=== PATIENT | male | born 1975 | race African-American/Black ===

== ENCOUNTER 2019-12-01 08:02 | Inpatient (IN) | payer MEDICAID ==
[~2019-12-01] VITALS: Ht 185.4 cm; Wt 57.6 kg
--- NOTE | 2019-12-01 08:13 | NUR ---
ED Nurse Note: Pt ambulated to ed with mother c/o right large toe pressure ulcer noted. pt states that occured x3 days causing swelling. Mother at bedside. pt is mentally unstable.
[2019-12-01] MEDS ORDERED: HALOPERIDOL1 MG ORAL (08:19)
[2019-12-01] MEDS ORDERED: ZOCOR20 M1 ORAL (08:19)
[2019-12-01] MEDS ORDERED: BENZTROPINE MESY1 MG ORAL (08:19)
[2019-12-01] MEDS ORDERED: METFORMIN HCL500 M1 ORAL (08:19)
[2019-12-01 08:20] VITALS: BP 125/90
--- NOTE | 2019-12-01 08:20 | NUR ---
ED Nurse Note: pt denies pain at this time. pt appears irrtated, mother at bedside to calm pt. pt given pillow to increase comfort.
[2019-12-01] MEDS ORDERED: Vancomycin 1.5gm/NS Premix 275 ML IVPB ONE (08:30)
[2019-12-01] MEDS ORDERED: LISINOPRIL30 MG ORAL (08:31)
[2019-12-01] MEDS ORDERED: POTASSIUM CHLO20 ME2 ORAL (08:31)
[2019-12-01] MEDS ORDERED: ASPIR 8181 MG ORAL (08:31)
[2019-12-01 08:52] LABS: BASOPHILS % (AUTO) 0.7 % (0.0-2.0); EOSINOPHILS % (AUTO) 0.9 % (0.0-3.0); HEMATOCRIT 46.1 % (42.0-52.0); HEMOGLOBIN 14.6 G/DL (14.2-18.0); LYMPHOCYTES % (AUTO) 19.6 % (20.0-45.0); MEAN CORPUSCULAR VOLUME 93 FL (80-99); MONOCYTES % (AUTO) 7.7 % (1.0-10.0); NEUTROPHILS % (AUTO) 71.2 % (45.0-75.0); PLATELET COUNT 190 K/UL (150-450); RED BLOOD COUNT 4.97 M/UL (4.70-6.10); RED CELL DISTRIBUTION WIDTH 12.8 % (11.6-14.8); WHITE BLOOD COUNT 7.3 K/UL (4.8-10.8)
[2019-12-01 09:06] LABS: ANION GAP 9 mmol/L (5-15); BLOOD UREA NITROGEN 24 mg/dL (7-18); CALCIUM 8.7 MG/DL (8.5-10.1); CARBON DIOXIDE 27 MMOL/L (21-32); CHLORIDE 101 MMOL/L (98-107); CREATININE 1.5 MG/DL (0.55-1.30); POTASSIUM 4.5 MMOL/L (3.5-5.1); SODIUM 136 MMOL/L (136-145)
[2019-12-01 09:18] LABS: ALANINE AMINOTRANSFERASE 52 U/L (12-78); ALBUMIN 3.3 G/DL (3.4-5.0); ALBUMIN/GLOBULIN RATIO 0.8 (1.0-2.7); ALKALINE PHOSPHATASE 83 U/L (46-116); ASPARTATE AMINO TRANSFERASE 21 U/L (15-37); BILIRUBIN,TOTAL 0.5 MG/DL (0.2-1.0)
--- NOTE | 2019-12-01 09:28 | NUR ---
ED Nurse Note: BELONGING LIST COMPLETED. WALLET, SHOES GIVEN TO MOTHER KERRIE TORRES. PLEASE VIEW [facility] LIST FOR CONTACT NUMBER. PT WILL KEEP SHIRT AND SHORTS
[2019-12-01] MEDS ORDERED: Insulin Human Regular 100units/ml 3ml IV ONE (09:45)
[2019-12-01] MEDS ORDERED: Hydromorphone 0.5mg/0.5ml inj IVP PRN (10:00)
[2019-12-01 10:06] LABS: APPEARANCE,URINE CLEAR; BILIRUBIN, URINE NEGATIVE (NEGATIVE); COLOR,URINE PALE YELLOW; GLUCOSE, URINE (UA) 4+ (NEGATIVE); KETONES,URINE NEGATIVE (NEGATIVE); LEUKOCYTE ESTERASE ,URINE NEGATIVE (NEGATIVE); NITRITE,URINE POSITIVE (NEGATIVE); PH,URINE 6 (4.5-8.0); PROTEIN,URINE 1+ (NEGATIVE); UROBILINOGEN,URINE NORMAL MG/DL (0.0-1.0)
--- NOTE | 2019-12-01 10:29 | NUR ---
ED Nurse Note: report given to john tracy for continuity of care
[2019-12-01 10:30] VITALS: BP 136/84
--- NOTE | 2019-12-01 10:47 | NUR ---
TRANSFER TO FLOOR: Patient transferred to ms as ordered, per ermd. Report given to john tracy. Belongings and medications given to mother sandy sandhu except for shirt and shorts. Family informed of transfer.
--- NOTE | 2019-12-01 10:58 | NUR ---
NURSE NOTES: Patient archived to the floor by hermelinda from ER via hermelinda; I received telephone report from EBONIE Figueroa from ER; patient awake, alert x4; on room air; no sign of shortness of breath, however patient coughs; no sing of chest pain; IV Right AC flushes well; Pressure Ulcer noted on the Right great toe; belonging signed by ER nurse and receiving nurse; patient's mother at the bed side; side rails up x2, breaks engaged, bed at lowest position; call light within reach; patient's mother at the bed side; patient moved to closer to the nurse station; I communicate MD Ortiz regarding patient's cough and asking if we need to do rapid COVID -19 swap, however MD Ortiz didn't give the order; also I ask MD Ortiz if we need to do Venous and Arterial duplex; didn't give the order for Venous and Arterial duplex; will keep monitoring.
--- NOTE | 2019-12-01 10:58 | Emergency Room Report ---
History of Present Illness General Chief Complaint: Edema Source: Patient, Caregiver Present Illness HPI 44-year-old male presents to ED for evaluation. Mother at bedside states that patient has swelling to his right foot and has an infection. Patient does have a history of cognitive delay. Patient states he had a "cut" to the bottom of his foot. States that swelling has progressively gotten worse over the last few days. Denies fevers or chills. States he is a diabetic and has not taken his medication in some time. Mother states patient refuses to get Accu-Cheks. No other aggravating relieving factors. Denies any other associated symptoms Allergies: Coded Allergies: No Known Allergies (Unverified , 12/01/19) COVID-19 Screening Contact w/high risk pt: No Experienced COVID-19 symptoms?: No COVID-19 Testing performed SEX OFFENDER TREATMENT PROFESSIONAL: No Patient History Past Medical History: DM Past Surgical History: none Pertinent Family History: none Social History: Denies: smoking, alcohol use, drug use Immunizations: UTD Reviewed Nursing Documentation: PMH: Agreed; PSxH: Agreed Nursing Documentation-PMH Past Medical History: No Stated History Review of Systems All Other Systems: negative except mentioned in HPI Physical Exam Vital Signs Date Time Temp Pulse Resp B/P (MAP) Pulse Ox O2 Delivery O2 Flow Rate FiO2 12/01/19 08:06 96.3 101 18 131/96 (108) 97 Room Air Sp02 EP Interpretation: reviewed, normal General Appearance: no apparent distress, alert, GCS 15, non-toxic Head: normocephalic, atraumatic Eyes: bilateral eye normal inspection, bilateral eye PERRL ENT: hearing grossly normal, normal pharynx, no angioedema, normal voice Neck: full range of motion, supple/symm/no masses Respiratory: chest non-tender, lungs clear, normal breath sounds, speaking full sentences Cardiovascular #1: regular rate, rhythm, no edema Cardiovascular #2: 2+ carotid (R), 2+ carotid (L), 2+ radial (R), 2+ radial (L) , 2+ dorsalis pedis (R), 2+ dorsalis pedis (L) Gastrointestinal: normal bowel sounds, non tender, soft, non-distended, no guarding, no rebound Rectal: deferred Genitourinary: normal inspection, no CVA tenderness Musculoskeletal: back normal, normal range of motion, gait/station normal, non- tender Neurologic: alert, motor strength/tone normal, oriented x3, sensory intact, responsive, speech normal Psychiatric: judgement/insight normal, memory normal, mood/affect normal, no suicidal/homicidal ideation Reflexes: 3+ bicep (R), 3+ bicep (L), 3+ tricep (R), 3+ tricep (L), 3+ knee (R) , 3+ knee (L) Skin: other - blister to bottom R toe. surroudning erythema/induration. swelling R foot Lymphatic: no adenopathy Medical Decision Making Diagnostic Impression: Primary Impression: Cellulitis and abscess of foot Additional Impression: Hyperglycemia ER Course Hospital Course 44-year-old male presents to ED with redness, swelling to RLE Differential diagnoses include: Cellulitis, abscess, rash. Clinical course Patient placed on stretcher. After initial history and physical I ordered labs , blood Cx, UA, IVFs, wound culture labs reviewed - no leukocytosis, Hb/Hct stable, BUN 24, Cr 1.5, glucose > 300 no evidence of DKA antibiotics given. IVfs given. insulin given. Case discussed with Dr Darling and he agreed to accept the patient to his service for further care and support Diagnosis - cellulitis, hyperglycemia Patient admitted to floor in serious condition Laboratory Tests Test 12/01/19 08:20 12/01/19 09:11 12/01/19 10:16 White Blood Count 7.3 K/UL (4.8-10.8) Red Blood Count 4.97 M/UL (4.70-6.10) Hemoglobin 14.6 G/DL (14.2-18.0) Hematocrit 46.1 % (42.0-52.0) Mean Corpuscular Volume 93 FL (80-99) Mean Corpuscular Hemoglobin 29.4 PG (27.0-31.0) Mean Corpuscular Hemoglobin Concent 31.8 G/DL (32.0-36.0) L Red Cell Distribution Width 12.8 % (11.6-14.8) Platelet Count 190 K/UL (150-450) Mean Platelet Volume 9.7 FL (6.5-10.1) Neutrophils (%) (Auto) 71.2 % (45.0-75.0) Lymphocytes (%) (Auto) 19.6 % (20.0-45.0) L Monocytes (%) (Auto) 7.7 % (1.0-10.0) Eosinophils (%) (Auto) 0.9 % (0.0-3.0) Basophils (%) (Auto) 0.7 % (0.0-2.0) Sodium Level 136 MMOL/L (136-145) Potassium Level 4.5 MMOL/L (3.5-5.1) Chloride Level 101 MMOL/L (98-107) Carbon Dioxide Level 27 MMOL/L (21-32) Anion Gap 9 mmol/L (5-15) Blood Urea Nitrogen 24 mg/dL (7-18) H Creatinine 1.5 MG/DL (0.55-1.30) H Estimat Glomerular Filtration Rate > 60 mL/min (>60) Glucose Level 378 MG/DL (74-106) H Calcium Level 8.7 MG/DL (8.5-10.1) Total Bilirubin 0.5 MG/DL (0.2-1.0) Aspartate Amino Transf (AST/SGOT) 21 U/L (15-37) Alanine Aminotransferase (ALT/SGPT) 52 U/L (12-78) Alkaline Phosphatase 83 U/L (46-116) Pro-B-Type Natriuretic Peptide 1215 pg/mL (0-125) H Total Protein 7.4 G/DL (6.4-8.2) Albumin 3.3 G/DL (3.4-5.0) L Globulin 4.1 g/dL Albumin/Globulin Ratio 0.8 (1.0-2.7) L Urine Color Pale yellow Urine Appearance Clear Urine pH 6 (4.5-8.0) Urine Specific [place] 1.015 (1.005-1.035) Urine Protein 1+ (NEGATIVE) H Urine Glucose (UA) 4+ (NEGATIVE) H Urine Ketones Negative (NEGATIVE) Urine Blood Negative (NEGATIVE) Urine Nitrite Positive (NEGATIVE) H Urine Bilirubin Negative (NEGATIVE) Urine Urobilinogen Normal MG/DL (0.0-1.0) Urine Leukocyte Esterase Negative (NEGATIVE) Urine RBC 0 /HPF (0 - 0) Urine WBC 0 /HPF (0 - 0) Urine Squamous Epithelial Cells Occasional /LPF Urine Bacteria Occasional /HPF (NONE) Lactic Acid Level Pending Last Vital Signs Date Time Temp Pulse Resp B/P (MAP) Pulse Ox O2 Delivery O2 Flow Rate FiO2 12/01/19 10:47 97.3 92 21 131/89 98 Room Air Status: improved Disposition: ADMITTED INPATIENT Condition: Serious Referrals: NON PHYSICIAN (PCP) Giovany Maravilla MD Dec 01, 2019 10:58
[2019-12-01] MEDS: Aspirin EC 81mg tab ORAL SCH (11:25)
[2019-12-01] MEDS: Docusate 100mg cap ORAL SCH ×2 (11:25→20:46)
[2019-12-01] MEDS: Benztropine 1mg tab ORAL SCH ×2 (11:26→16:58)
[2019-12-01] MEDS: Heparin 5000 units/ml inj SUBQ SCH ×2 (11:26→20:48)
[2019-12-01] MEDS ORDERED: POTASSIUM CHLO20 ME1 ORAL (11:42)
[2019-12-01] MEDS ORDERED: SPIRONOLACTONE100 MG ORAL (11:42)
[2019-12-01] MEDS: NovoLOG Insulin Flexpen SUBQ SCH ×3 (12:20→20:49)
[2019-12-01] MEDS: Haloperidol 1mg tab ORAL SCH ×2 (12:21→16:58)
--- NOTE | 2019-12-01 13:59 | Infectious Diseases Prog Note ---
Assessment/Plan Assessment/Plan Full consult dictated: A) 1) right foot/leg cellulitis, right foot great toe wound - ? infected 2) pmh noted 3) allergies - nkda P) 1) vancomycin and cefepime 2) monitor cellulitis 3) check wound culture 4) monitor labs 5) thank you Subjective Allergies: Coded Allergies: No Known Allergies (Unverified , 12/01/19) Objective Last 24 Hour Vital Signs Date Time Temp Pulse Resp B/P (MAP) Pulse Ox O2 Delivery O2 Flow Rate FiO2 12/01/19 10:47 97.3 92 21 131/89 98 Room Air 12/01/19 10:30 97.3 89 17 136/84 100 Room Air 12/01/19 08:52 79 18 Room Air 12/01/19 08:20 96.3 79 18 125/90 97 Room Air 12/01/19 08:06 96.3 101 18 131/96 (108) 97 Room Air Height (Feet): 6 Height (Inches): 1.00 Weight (Pounds): 280 Laboratory Tests Test 12/01/19 08:20 12/01/19 09:11 12/01/19 10:16 White Blood Count 7.3 K/UL (4.8-10.8) Red Blood Count 4.97 M/UL (4.70-6.10) Hemoglobin 14.6 G/DL (14.2-18.0) Hematocrit 46.1 % (42.0-52.0) Mean Corpuscular Volume 93 FL (80-99) Mean Corpuscular Hemoglobin 29.4 PG (27.0-31.0) Mean Corpuscular Hemoglobin Concent 31.8 G/DL (32.0-36.0) L Red Cell Distribution Width 12.8 % (11.6-14.8) Platelet Count 190 K/UL (150-450) Mean Platelet Volume 9.7 FL (6.5-10.1) Neutrophils (%) (Auto) 71.2 % (45.0-75.0) Lymphocytes (%) (Auto) 19.6 % (20.0-45.0) L Monocytes (%) (Auto) 7.7 % (1.0-10.0) Eosinophils (%) (Auto) 0.9 % (0.0-3.0) Basophils (%) (Auto) 0.7 % (0.0-2.0) Sodium Level 136 MMOL/L (136-145) Potassium Level 4.5 MMOL/L (3.5-5.1) Chloride Level 101 MMOL/L (98-107) Carbon Dioxide Level 27 MMOL/L (21-32) Anion Gap 9 mmol/L (5-15) Blood Urea Nitrogen 24 mg/dL (7-18) H Creatinine 1.5 MG/DL (0.55-1.30) H Estimat Glomerular Filtration Rate > 60 mL/min (>60) Glucose Level 378 MG/DL (74-106) H Calcium Level 8.7 MG/DL (8.5-10.1) Total Bilirubin 0.5 MG/DL (0.2-1.0) Aspartate Amino Transf (AST/SGOT) 21 U/L (15-37) Alanine Aminotransferase (ALT/SGPT) 52 U/L (12-78) Alkaline Phosphatase 83 U/L (46-116) Pro-B-Type Natriuretic Peptide 1215 pg/mL (0-125) H Total Protein 7.4 G/DL (6.4-8.2) Albumin 3.3 G/DL (3.4-5.0) L Globulin 4.1 g/dL Albumin/Globulin Ratio 0.8 (1.0-2.7) L Urine Color Pale yellow Urine Appearance Clear Urine pH 6 (4.5-8.0) Urine Specific [place] 1.015 (1.005-1.035) Urine Protein 1+ (NEGATIVE) H Urine Glucose (UA) 4+ (NEGATIVE) H Urine Ketones Negative (NEGATIVE) Urine Blood Negative (NEGATIVE) Urine Nitrite Positive (NEGATIVE) H Urine Bilirubin Negative (NEGATIVE) Urine Urobilinogen Normal MG/DL (0.0-1.0) Urine Leukocyte Esterase Negative (NEGATIVE) Urine RBC 0 /HPF (0 - 0) Urine WBC 0 /HPF (0 - 0) Urine Squamous Epithelial Cells Occasional /LPF Urine Bacteria Occasional /HPF (NONE) Lactic Acid Level 1.50 mmol/L (0.4-2.0) Current Medications Medications (Trade) Dose Ordered Sig/Mika Route PRN Reason Start Time Stop Time Status Last Admin Dose Admin Acetaminophen (Tylenol) 650 mg Q4H PRN ORAL Mild Pain (Pain Scale 1-3) 12/01/19 10:00 12/31/19 09:59 Aspirin (Ecotrin) 81 mg DAILY ORAL 12/01/19 11:00 01/15/20 10:59 12/01/19 11:25 Benztropine Mesylate (Cogentin) 1 mg BID ORAL 12/01/19 11:00 12/31/19 10:59 12/01/19 11:26 Cefepime HCl 2 gm/ Dextrose 100 ml @ 200 mls/hr Q12HR IVPB 12/01/19 21:00 12/08/19 20:59 UNV Dextrose (Dextrose 50%) 25 ml Q30M PRN IV Hypoglycemia 12/01/19 10:00 02/29/20 09:59 Dextrose (Dextrose 50%) 50 ml Q30M PRN IV Hypoglycemia 12/01/19 10:00 02/29/20 09:59 Docusate Sodium (Colace) 100 mg EVERY 12 HOURS ORAL 12/01/19 10:45 12/31/19 10:44 12/01/19 11:25 Haloperidol (Haldol) 4 mg BID ORAL 12/01/19 12:00 01/15/20 11:59 12/01/19 12:21 Heparin Sodium (Porcine) (Heparin 5000 units/ml) 5,000 units EVERY 12 HOURS SUBQ 12/01/19 10:45 01/15/20 10:44 12/01/19 11:26 Hydromorphone HCl (Dilaudid) 0.5 mg Q4H PRN IVP Severe Pain (Pain Scale 7-10) 12/01/19 10:00 12/08/19 09:59 Insulin Aspart (NovoLOG) BEFORE MEALS AND HS SUBQ 12/01/19 11:30 02/29/20 11:29 12/01/19 12:20 Ondansetron HCl (Zofran) 4 mg Q6H PRN IVP Nausea & Vomiting 12/01/19 10:00 12/31/19 09:59 Sodium Chloride 1,000 ml @ 75 mls/hr [id number] IV 12/01/19 10:56 12/31/19 10:55 12/01/19 11:26 Vancomycin HCl (Vanco pharmacy to dose) 1 ea DAILY PRN MISC Per rx protocol 12/01/19 10:00 12/31/19 09:59 Vancomycin HCl 1 gm/Sodium Chloride 275 ml @ 183.708 mls/hr Q12HR IVPB 12/01/19 21:00 12/06/19 20:59 Isabel Lee MD Dec 01, 2019 13:59
--- NOTE | 2019-12-01 14:08 | History and Physical ---
History of Present Illness General Date patient seen: Dec 01, 2019 Time patient seen: 12:00 Reason for Hospitalization: LLE cellulitis Present Illness HPI 44-year-old male with paranoid schizophrenia, HTN, chronic systolic CHD (EF 20% on TTE done at [facility] in 2010) DM (noncompliant with meds x 1 yeat) presents to ED for evaluation of RLE swelling. Mother at bedside states that patient has swelling to his right foot and has an infection. Patient states he had a "cut" to the bottom of his foot. States that swelling has progressively gotten worse over the last few days. Denies fevers or chills. Mother states he only takes his schizophrenia meds, no diabtic meds\\, refuses to get Accu-Cheks. Patient denies any fever, chills, abdominal pain, CP, palpitations. Started on vancomycin in ED and referred for admission. Allergies: Coded Allergies: No Known Allergies (Unverified , 12/01/19) COVID-19 Screening Contact w/high risk pt: No Recent Travel to affected area: No Experienced COVID-19 symptoms?: No Medication History Scheduled Aspirin* (Aspir 81*), 81 MG ORAL DAILY, (Reported) Benztropine Mesylate* (Benztropine Mesylate*), 1 MG ORAL BID, (Reported) Haloperidol* (Haldol*), 4 MG ORAL BID, (Reported) Lisinopril* (Lisinopril*), 20 MG ORAL DAILY, (Reported) Metformin Hcl* (Metformin Hcl*), 500 MG ORAL TWICE A DAY, (Reported) Potassium Chloride (Potassium Chloride), 20 MEQ ORAL DAILY, (Reported) Potassium Chloride* (K-Dur*), 20 MEQ ORAL DAILY, (Reported) Simvastatin (Zocor), 20 MG ORAL BEDTIME, (Reported) Spironolactone* (Spironolactone*), 25 MG ORAL DAILY, (Reported) Patient History Healthcare decision maker Resuscitation status Advanced Directive on File Review of Systems Constitutional: Denies: chills, fever Respiratory: Denies: cough, orthopnea, shortness of breath, stridor, wheezing Cardiovascular: Reports: edema; Denies: chest pain Gastrointestinal: Denies: abdominal pain Genitourinary: Denies: dysuria Musculoskeletal: Denies: back pain Skin: Denies: rash Neurological: Denies: headache Endocrine: Denies: excessive sweating Physical Exam General Appearance: no apparent distress, alert HEENT: atraumatic, anicteric Neck: normal alignment, supple Respiratory/Chest: lungs clear, normal breath sounds, no respiratory distress, no accessory muscle use Cardiovascular/Chest: normal rate, regular rhythm Abdomen: non tender, soft Extremities: non-tender, normal inspection, moderate edema - +Warmth Skin Exam: other - Left great toe ulceration without evidence of celulitis 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, alert, oriented x 3 Last 24 Hour Vital Signs Date Time Temp Pulse Resp B/P (MAP) Pulse Ox O2 Delivery O2 Flow Rate FiO2 12/01/19 10:47 97.3 92 21 131/89 98 Room Air 12/01/19 10:30 97.3 89 17 136/84 100 Room Air 12/01/19 08:52 79 18 Room Air 12/01/19 08:20 96.3 79 18 125/90 97 Room Air 12/01/19 08:06 96.3 101 18 131/96 (108) 97 Room Air Laboratory Tests Test 12/01/19 08:20 12/01/19 09:11 12/01/19 10:16 White Blood Count 7.3 K/UL (4.8-10.8) Red Blood Count 4.97 M/UL (4.70-6.10) Hemoglobin 14.6 G/DL (14.2-18.0) Hematocrit 46.1 % (42.0-52.0) Mean Corpuscular Volume 93 FL (80-99) Mean Corpuscular Hemoglobin 29.4 PG (27.0-31.0) Mean Corpuscular Hemoglobin Concent 31.8 G/DL (32.0-36.0) L Red Cell Distribution Width 12.8 % (11.6-14.8) Platelet Count 190 K/UL (150-450) Mean Platelet Volume 9.7 FL (6.5-10.1) Neutrophils (%) (Auto) 71.2 % (45.0-75.0) Lymphocytes (%) (Auto) 19.6 % (20.0-45.0) L Monocytes (%) (Auto) 7.7 % (1.0-10.0) Eosinophils (%) (Auto) 0.9 % (0.0-3.0) Basophils (%) (Auto) 0.7 % (0.0-2.0) Sodium Level 136 MMOL/L (136-145) Potassium Level 4.5 MMOL/L (3.5-5.1) Chloride Level 101 MMOL/L (98-107) Carbon Dioxide Level 27 MMOL/L (21-32) Anion Gap 9 mmol/L (5-15) Blood Urea Nitrogen 24 mg/dL (7-18) H Creatinine 1.5 MG/DL (0.55-1.30) H Estimat Glomerular Filtration Rate > 60 mL/min (>60) Glucose Level 378 MG/DL (74-106) H Calcium Level 8.7 MG/DL (8.5-10.1) Total Bilirubin 0.5 MG/DL (0.2-1.0) Aspartate Amino Transf (AST/SGOT) 21 U/L (15-37) Alanine Aminotransferase (ALT/SGPT) 52 U/L (12-78) Alkaline Phosphatase 83 U/L (46-116) Pro-B-Type Natriuretic Peptide 1215 pg/mL (0-125) H Total Protein 7.4 G/DL (6.4-8.2) Albumin 3.3 G/DL (3.4-5.0) L Globulin 4.1 g/dL Albumin/Globulin Ratio 0.8 (1.0-2.7) L Urine Color Pale yellow Urine Appearance Clear Urine pH 6 (4.5-8.0) Urine Specific [place] 1.015 (1.005-1.035) Urine Protein 1+ (NEGATIVE) H Urine Glucose (UA) 4+ (NEGATIVE) H Urine Ketones Negative (NEGATIVE) Urine Blood Negative (NEGATIVE) Urine Nitrite Positive (NEGATIVE) H Urine Bilirubin Negative (NEGATIVE) Urine Urobilinogen Normal MG/DL (0.0-1.0) Urine Leukocyte Esterase Negative (NEGATIVE) Urine RBC 0 /HPF (0 - 0) Urine WBC 0 /HPF (0 - 0) Urine Squamous Epithelial Cells Occasional /LPF Urine Bacteria Occasional /HPF (NONE) Lactic Acid Level 1.50 mmol/L (0.4-2.0) Height (Feet): 6 Height (Inches): 1.00 Weight (Pounds): 280 Medications Current Medications Medications (Trade) Dose Ordered Sig/Mika Route PRN Reason Start Time Stop Time Status Last Admin Dose Admin Acetaminophen (Tylenol) 650 mg Q4H PRN ORAL Mild Pain (Pain Scale 1-3) 12/01/19 10:00 12/31/19 09:59 Aspirin (Ecotrin) 81 mg DAILY ORAL 12/01/19 11:00 01/15/20 10:59 12/01/19 11:25 Benztropine Mesylate (Cogentin) 1 mg BID ORAL 12/01/19 11:00 12/31/19 10:59 12/01/19 11:26 Cefepime HCl 2 gm/ Dextrose 100 ml @ 200 mls/hr Q12HR IVPB 12/01/19 21:00 12/08/19 20:59 Dextrose (Dextrose 50%) 25 ml Q30M PRN IV Hypoglycemia 12/01/19 10:00 02/29/20 09:59 Dextrose (Dextrose 50%) 50 ml Q30M PRN IV Hypoglycemia 12/01/19 10:00 02/29/20 09:59 Docusate Sodium (Colace) 100 mg EVERY 12 HOURS ORAL 12/01/19 10:45 12/31/19 10:44 12/01/19 11:25 Haloperidol (Haldol) 4 mg BID ORAL 12/01/19 12:00 01/15/20 11:59 12/01/19 12:21 Heparin Sodium (Porcine) (Heparin 5000 units/ml) 5,000 units EVERY 12 HOURS SUBQ 12/01/19 10:45 01/15/20 10:44 12/01/19 11:26 Hydromorphone HCl (Dilaudid) 0.5 mg Q4H PRN IVP Severe Pain (Pain Scale 7-10) 12/01/19 10:00 12/08/19 09:59 Insulin Aspart (NovoLOG) BEFORE MEALS AND HS SUBQ 12/01/19 11:30 02/29/20 11:29 12/01/19 12:20 Ondansetron HCl (Zofran) 4 mg Q6H PRN IVP Nausea & Vomiting 12/01/19 10:00 12/31/19 09:59 Sodium Chloride 1,000 ml @ 75 mls/hr [id number] IV 12/01/19 10:56 12/31/19 10:55 12/01/19 11:26 Vancomycin HCl (Vanco pharmacy to dose) 1 ea DAILY PRN MISC Per rx protocol 12/01/19 10:00 12/31/19 09:59 Vancomycin HCl 1 gm/Sodium Chloride 275 ml @ 183.708 mls/hr Q12HR IVPB 12/01/19 21:00 12/06/19 20:59 Assessment/Plan Status: stable Assessment/Plan: 44 year old man with DM, chronic sCHF, HTN, schizphrenia comes in with RLE swelling #RLE Edema and warmth #RLE cellulitis #Right great toe diabetic foot ulcer -Admit to medical service -IV abx, vancomycin and monitor drug levels -RLE elevation -ID eval -Podiatry consulted, Dr. Meyers -check LE venous duplex to rule out DVT #Chronic systolic CHF, EF 20% on TTE from 2010 at [facility] #Elevated BNP -IV Lasix diuresis -Check TTE -Cardiology consulted, Dr. Lan #Type 2 DM, uncontrolled due to noncompliance -start ZAY -monitor accuchecks -Will look to start oral hypoglycemic this admission #Elevated creatinine of 1.5, could be underlying CKD versus BRIA -monitor BMP -hold ACEI -Nephrology consulted, Dr. Angela #Paranoid schizophrenia #Medical noncompliance -continue Haldol and Cogentin' -Psychiatry consulted, Dr. Rose -counselled about importance of compliance I spent 72 minutes on this patient's case, and 35 minutes was dedicated to counseling and/or care coordination with RN, consulting MDs, case management I spent an additional 35 minutes on review of medical records including prior hospital records, consult notes, progress notes, procedures, imaging, labs, hemodynamics, and other clinical documentation. Bruce Villaseonr MD Dec 01, 2019 14:08
--- NOTE | 2019-12-01 14:37 | NUR ---
CASE MANAGEMENT: INITIAL REVIEW 44 YO M PRESENTED TO ED FROM HOME CC: EDEMA. "cut" to the bottom of his foot. PMHx: DM. cognitive delay. SI:RIGHT LE CELLULITIS T 96.3 HR 101 RR 18 B/P 131/96 SATS 97% ON RA LABS: BUN 24 CR 1.5 GLU 378 BNP 1215 IS: VANCO IV X1 NS BOLUS X1 PATIENT ADMITTED TO MED/SURG 12/01/2019 @ 0848 DCP: HOME PLAN OF CARE: wound culture Podiatry consulted, Dr. Meyers check LE venous duplex to rule out DVT -IV Lasix diuresis -Check TTE -Cardiology consulted, Dr. Lan
--- NOTE | 2019-12-01 15:12 | NUR ---
NURSE NOTES: X-ray tech came up to do chest x-ray and right foot x-ray. Patient agreed with foot x-ray but refused chest x-ray. RN explained to the patient the importance of following plan of care and patient noted with on and off dry cough. Patient stated firmly " I do not need chest x-ray." x3. RN explained the risks and benefits.
--- NOTE | 2019-12-01 15:27 | Diagnostic Imaging Report ---
History: OSTEOMY Exam: XR RIGHT FOOT 3 views Comparison: None available FINDINGS: No fracture or dislocation. No evidence of periosteal reaction or osseous destruction. No radiopaque foreign body identified. Suggestion of soft tissue swelling. IMPRESSION: No evidence of periosteal reaction or osseous destruction. No radiopaque foreign body identified. Suggestion of soft tissue swelling.
--- NOTE | 2019-12-01 15:43 | Diagnostic Imaging Report ---
History: SWELL Exam: US VENOUS BILATERAL LOWER EXTREMITIES Comparison: None available FINDINGS: Deep venous system of the right and left lower extremity appears patent and compressible with spontaneous flow without intraluminal echoes. IMPRESSION: No evidence of DVT within the right or left lower extremity.
[2019-12-01 16:00] VITALS: BP 142/93
--- NOTE | 2019-12-01 19:32 | NUR ---
HAND-OFF: Report given to EBONIE George. Patient on bed, watiching TV; patient is stable condition;
--- NOTE | 2019-12-01 19:36 | NUR ---
NURSE NOTES: Patient in bed, awake and alert. Able to make needs known. On room air with no signs of distress or SOB. IV intact and running IVF as ordered. Bed locked and in lowest position. Call light in reach. Will continue to monitor the patient.
[2019-12-01 19:54] VITALS: BP 141/90
[2019-12-01] MEDS: Vancomycin 1 GM in NS 275 ML IVPB SCH (21:27)
[2019-12-02] VITALS (7 sets, daily range): BP systolic 130–149; BP diastolic 81–110
--- NOTE | 2019-12-02 02:56 | NUR ---
HAND-OFF: Report given to EBONIE Ferguson.
--- NOTE | 2019-12-02 02:57 | NUR ---
NURSE NOTES: Received pt awake, verbal, and A&Ox3-4 . No sob, fever and pain at the moment. pt has a episodes of cough. Iv is intact and asymptomatic. pt is ambulatory. Bed is in the lowest position,locked and call light within reach. We will continue monitoring the pt
[2019-12-02] MEDS: NovoLOG Insulin Flexpen SUBQ SCH ×4 (06:11→20:41)
--- NOTE | 2019-12-02 07:20 | NUR ---
NURSE NOTES: Received report from EBONIE Ferguson. Patient awake in bed, alert and verbally responsive, no SOB, bed in lowest position with alarms on and breaks engaged, IV line on right AC patent, on room air, will continue to monitor and proceed with plan of care, call light within reach
--- NOTE | 2019-12-02 07:26 | NUR ---
HAND-OFF: Report given to EBONIE Olivarez.
[2019-12-02] MEDS: Heparin 5000 units/ml inj SUBQ SCH ×2 (08:07→20:41)
[2019-12-02] MEDS: Docusate 100mg cap ORAL SCH ×2 (08:08→20:57)
[2019-12-02] MEDS: Haloperidol 1mg tab ORAL SCH ×2 (08:08→17:05)
[2019-12-02] MEDS: Benztropine 1mg tab ORAL SCH ×2 (08:08→17:05)
[2019-12-02] MEDS: Aspirin EC 81mg tab ORAL SCH (08:08)
--- NOTE | 2019-12-02 08:39 | Consultation ---
History of Present Illness General Date patient seen: Dec 02, 2019 Time patient seen: 08:25 Chief Complaint: Edema Referring physician: Dr Rome Reason for Consultation: Foot ulcer, DM, Cellulitis Present Illness HPI Patient states he cut his toe 5 days ago and it has not been healing. He only notes swelling in right leg but no pain, no drainage, no f/c/n/v. Allergies: Coded Allergies: No Known Allergies (Unverified , 12/01/19) Medication History Scheduled Aspirin* (Aspir 81*), 81 MG ORAL DAILY, (Reported) Benztropine Mesylate* (Benztropine Mesylate*), 1 MG ORAL BID, (Reported) Haloperidol* (Haldol*), 4 MG ORAL BID, (Reported) Lisinopril* (Lisinopril*), 20 MG ORAL DAILY, (Reported) Metformin Hcl* (Metformin Hcl*), 500 MG ORAL TWICE A DAY, (Reported) Potassium Chloride (Potassium Chloride), 20 MEQ ORAL DAILY, (Reported) Potassium Chloride* (K-Dur*), 20 MEQ ORAL DAILY, (Reported) Simvastatin (Zocor), 20 MG ORAL BEDTIME, (Reported) Spironolactone* (Spironolactone*), 25 MG ORAL DAILY, (Reported) Patient History Healthcare decision maker Resuscitation status Advanced Directive on File Past Medical/Surgical History Past Medical/Surgical History: (1) Diabetes mellitus type 2 with complications, uncontrolled (2) CHF (congestive heart failure) (3) Cellulitis (4) Hyperglycemia (5) Cellulitis and abscess of foot Review of Systems Constitutional: Denies: no symptoms, see HPI, chills, sweats, fever, malaise, weakness, other Respiratory: Denies: cough, orthopnea, shortness of breath Cardiovascular: Reports: edema; Denies: no symptoms, see HPI, chest pain, palpitations, syncope, PND, other Gastrointestinal: Denies: diarrhea, nausea, vomiting Musculoskeletal: Denies: no symptoms, see HPI, back pain, gout, joint pain, joint swelling, muscle pain, muscle stiffness, other Skin: Reports: other - foot ulcer Neurological: Denies: numbness Physical Exam General Appearance: WD/WN Cardiovascular/Chest: normal peripheral pulses Extremities: normal range of motion, non-tender, no calf tenderness, moderate edema - RLE Neurologic: sensory deficit Physical Exam Narrative Patient : SITA TORRES Referring Physician: Isabel Lee MD ID Number: [id number] Service Date: 12/01/19 : 1975 Report Date: 12/01/19 Gender: M Accession No.: [id number] Location: 4E Procedure: XRAY Foot 2v R History: OSTEOMY Exam: XR RIGHT FOOT 3 views Comparison: None available FINDINGS: No fracture or dislocation. No evidence of periosteal reaction or osseous destruction. No radiopaque foreign body identified. Suggestion of soft tissue swelling. IMPRESSION: No evidence of periosteal reaction or osseous destruction. No radiopaque foreign body identified. Suggestion of soft tissue swelling. Dictated By: Alvarez Onofre MD Electronically Signed By: Alvarez Onofre MD Signed Date/Time 12/01/19 1526 CC: Isabel Lee MD; Fermin Tate MD Venous Ultz - NEG DVT BLE Last 24 Hour Vital Signs Date Time Temp Pulse Resp B/P (MAP) Pulse Ox O2 Delivery O2 Flow Rate FiO2 12/02/19 06:00 97.5 103 18 145/98 (114) 96 12/02/19 00:00 97.7 102 20 149/110 (123) 97 12/01/19 21:00 Room Air 12/01/19 19:54 98.2 105 20 141/90 (107) 99 12/01/19 16:00 98.4 102 20 142/93 (109) 96 12/01/19 14:07 Room Air 12/01/19 10:47 97.3 92 21 131/89 98 Room Air 12/01/19 10:30 97.3 89 17 136/84 100 Room Air 12/01/19 08:52 79 18 Room Air Intake and Output 12/01/19 12/02/19 19:00 07:00 Intake Total 2245 ml 1005 ml Output Total 1300 ml 1000 ml Balance 945 ml 5 ml Intake Oral 720 ml 630 ml IV Total 1525 ml 375 ml Output Urine Total 1300 ml 1000 ml Laboratory Tests Test 12/01/19 09:11 12/01/19 10:16 Urine Color Pale yellow Urine Appearance Clear Urine pH 6 (4.5-8.0) Urine Specific [place] 1.015 (1.005-1.035) Urine Protein 1+ (NEGATIVE) H Urine Glucose (UA) 4+ (NEGATIVE) H Urine Ketones Negative (NEGATIVE) Urine Blood Negative (NEGATIVE) Urine Nitrite Positive (NEGATIVE) H Urine Bilirubin Negative (NEGATIVE) Urine Urobilinogen Normal MG/DL (0.0-1.0) Urine Leukocyte Esterase Negative (NEGATIVE) Urine RBC 0 /HPF (0 - 0) Urine WBC 0 /HPF (0 - 0) Urine Squamous Epithelial Cells Occasional /LPF Urine Bacteria Occasional /HPF (NONE) Lactic Acid Level 1.50 mmol/L (0.4-2.0) Height (Feet): 6 Height (Inches): 1.00 Weight (Pounds): 127 Medications Current Medications Medications (Trade) Dose Ordered Sig/Mika Route PRN Reason Start Time Stop Time Status Last Admin Dose Admin Acetaminophen (Tylenol) 650 mg Q4H PRN ORAL Mild Pain (Pain Scale 1-3) 12/01/19 10:00 12/31/19 09:59 Aspirin (Ecotrin) 81 mg DAILY ORAL 12/01/19 11:00 01/15/20 10:59 12/02/19 08:08 Benztropine Mesylate (Cogentin) 1 mg BID ORAL 12/01/19 11:00 12/31/19 10:59 12/02/19 08:08 Cefepime HCl 2 gm/ Dextrose 100 ml @ 200 mls/hr Q12HR IVPB 12/01/19 21:00 12/08/19 20:59 12/02/19 08:05 Dextrose (Dextrose 50%) 25 ml Q30M PRN IV Hypoglycemia 12/01/19 10:00 02/29/20 09:59 Dextrose (Dextrose 50%) 50 ml Q30M PRN IV Hypoglycemia 12/01/19 10:00 02/29/20 09:59 Docusate Sodium (Colace) 100 mg EVERY 12 HOURS ORAL 12/01/19 10:45 12/31/19 10:44 12/02/19 08:08 Furosemide (Lasix) 40 mg DAILY IV 12/01/19 14:15 12/31/19 14:14 12/02/19 08:06 Haloperidol (Haldol) 4 mg BID ORAL 12/01/19 12:00 01/15/20 11:59 12/02/19 08:08 Heparin Sodium (Porcine) (Heparin 5000 units/ml) 5,000 units EVERY 12 HOURS SUBQ 12/01/19 10:45 01/15/20 10:44 12/02/19 08:07 Hydromorphone HCl (Dilaudid) 0.5 mg Q4H PRN IVP Severe Pain (Pain Scale 7-10) 12/01/19 10:00 12/08/19 09:59 Insulin Aspart (NovoLOG) BEFORE MEALS AND HS SUBQ 12/01/19 11:30 02/29/20 11:29 12/02/19 06:11 Ondansetron HCl (Zofran) 4 mg Q6H PRN IVP Nausea & Vomiting 12/01/19 10:00 12/31/19 09:59 Sodium Chloride 1,000 ml @ 75 mls/hr [id number] IV 12/01/19 10:56 12/31/19 10:55 12/02/19 00:38 Vancomycin HCl (Vanco pharmacy to dose) 1 ea DAILY PRN MISC Per rx protocol 12/01/19 10:00 12/31/19 09:59 Vancomycin HCl 1 gm/Sodium Chloride 275 ml @ 183.708 mls/hr Q12HR IVPB 12/01/19 21:00 12/06/19 20:59 12/01/19 21:27 Objective Narrative Plantar right hallux ulcer to subq. No signs of acute infection noted. No bone or tendon exposed Assessment/Plan Diagnosis [place] I: A/ 1) Cellulitis RLE 2) Right foot ulcer 3) DM uncontrolled 4) CHF P/ 1) Abx per ID 2) Wound care orders placed. No indication for osteo. No surgical intervention indicated at this time. Patient educated on wound and need for partial WB to right foot to avoid wound when ambulating. 3) Strict glycemic control for optimal wound healing 4) Will follow Thank you Javier Meyers DPM Dec 02, 2019 08:39
[2019-12-02] MEDS: Vancomycin 1 GM in NS 275 ML IVPB SCH (09:17)
--- NOTE | 2019-12-02 12:58 | General Progress Note ---
Assessment/Plan Status: stable Assessment/Plan: 44 year old man with DM, chronic sCHF, HTN, schizphrenia comes in with RLE swelling #RLE Edema and warmth #RLE cellulitis #Right great toe diabetic foot ulcer -Continue inpatient level of care -IV abx, vanco and cefepime -RLE elevation -ID recs appreciated -Podiatry recs appreciated, no surgical interventions recommended -LE duplex neg for DVT #Chronic systolic CHF, EF 20% on TTE from 2010 at [facility] #Elevated BNP -hold IV Lasix as he is not allowing labs to be checked -TTE done, results pending -Cardiology consulted, Dr. Lan #Type 2 DM, uncontrolled due to noncompliance -cont ZAY -monitor accuchecks -Will look to start oral hypoglycemic this admission #Elevated creatinine of 1.5, could be underlying CKD versus BRIA -monitor BMP -hold ACEI -Nephrology consulted, Dr. Angela #Paranoid schizophrenia #Medical noncompliance -continue Haldol and Cogentin' -Psychiatry consulted, Dr. Rose -counselled about importance of compliance I spent 37 minutes on this patient's case, and 20 minutes was dedicated to counseling and/or care coordination with RN, consulting MDs, case management Subjective Date patient seen: Dec 02, 2019 Time patient seen: 12:36 Constitutional: Denies: fever Cardiovascular: Denies: chest pain Respiratory: Denies: cough, orthopnea Gastrointestinal/Abdominal: Denies: abdominal pain Allergies: Coded Allergies: No Known Allergies (Unverified , 12/01/19) Subjective Follow up for RLE cellulitis, per patient swelling is improved Patient did not allow labs to be drawn this morning, states he doesn't want any needles Objective Last 24 Hour Vital Signs Date Time Temp Pulse Resp B/P (MAP) Pulse Ox O2 Delivery O2 Flow Rate FiO2 12/02/19 12:00 97.7 97 20 136/81 (99) 96 12/02/19 09:00 Room Air 12/02/19 08:00 96.4 103 18 131/83 (99) 96 12/02/19 06:00 97.5 103 18 145/98 (114) 96 12/02/19 00:00 97.7 102 20 149/110 (123) 97 12/01/19 21:00 Room Air 12/01/19 19:54 98.2 105 20 141/90 (107) 99 12/01/19 16:00 98.4 102 20 142/93 (109) 96 12/01/19 14:07 Room Air Intake and Output 12/01/19 12/02/19 19:00 07:00 Intake Total 2245 ml 1005 ml Output Total 1300 ml 1000 ml Balance 945 ml 5 ml Intake Oral 720 ml 630 ml IV Total 1525 ml 375 ml Output Urine Total 1300 ml 1000 ml Laboratory Tests 12/02/19 12:02: POC Whole Blood Glucose 261H Height (Feet): 6 Height (Inches): 1.00 Weight (Pounds): 127 General Appearance: no apparent distress, alert Neck: normal alignment, supple Cardiovascular: normal rate, regular rhythm Respiratory/Chest: lungs clear, normal breath sounds Abdomen: non tender, soft Bruce Villasenor MD Dec 02, 2019 12:58
--- NOTE | 2019-12-02 14:57 | NUR ---
CASE MANAGEMENT: REVIEW 12/02/19 SI:CELLULITIS . RIGHT LE DIABETIC FOOT ULCER . DM II UNCONTROLLED . CHF 96.4 103 18 131/83 96% ON RA BG 261 IS: IV NS@75ML/HR IV VANCOMYCIN BID IV CEFEPIME BID ASPIRIN PO QD HEPARIN SQ BID COGENTIN PO BID \: 4E MED SURG UNIT DCP: HOME PLAN OF CARE: Cont wound culture LE venous duplex- No evidence of DVT within the right or left lower extremity. Echo to be reviews EF 30-35%
[2019-12-02] MEDS ORDERED: DiphenhydrAMINE 50mg/ml Inj IM SCH (15:30)
[2019-12-02] MEDS ORDERED: LORazepam Inj 2mg/ml 1ml IM SCH (15:30)
[2019-12-02] MEDS ORDERED: Haloperidol 5mg/ml Inj IM SCH (15:30)
--- NOTE | 2019-12-02 15:53 | NUR ---
NURSE NOTES: At 2:40 pm, patient told RN that he wants to "check out" and leave the hospital KASIA, RN explained to patient that there is no discharge order for him and that it is not safe for him to leave yet as he is getting fluids and IV ATB for his infection, patient did not want to listen and was getting restless and agitated at the moment. Patient's parents tried to convince him to stay but patient insisted on leaving. Dr. Rome (covering for Dr. Tate) made aware and he was able to talk to the patient and convince him to stay. Dr. Rose also made aware and ordered one time doses of Ativan, Haldol and Benadryl which the patient strongly refused, offered x 3 and explained risk and benefits as witnessed by the charge nurse, Todd. Patient was re-educated regarding the risks of going AMA and he verbalized understanding. Patient is calm and stable at this time. Will continue to monitor the patient for behavioral episodes and overall changes. RP, Oma Chatman (mom) made aware.
--- NOTE | 2019-12-02 17:20 | Infectious Diseases Prog Note ---
Assessment/Plan Assessment/Plan Full consult dictated: A) 1) right foot/leg cellulitis, right foot great toe wound - ? infected 2) pmh noted 3) allergies - nkda P) 1) vancomycin and cefepime - day # 2 2) monitor cellulitis - improving 3) check wound culture 4) monitor labs 5) will f/u Subjective Constitutional: Denies: fever HEENT: Denies: congestion Respiratory: Denies: shortness of breath Cardiovascular: Denies: chest pain Gastrointestinal/Abdominal: Denies: nausea, vomiting Genitourinary: Denies: dysuria, hematuria Neurologic: Denies: headache Allergies: Coded Allergies: No Known Allergies (Unverified , 12/01/19) Objective Last 24 Hour Vital Signs Date Time Temp Pulse Resp B/P (MAP) Pulse Ox O2 Delivery O2 Flow Rate FiO2 12/02/19 16:00 98.1 90 19 130/87 (101) 96 12/02/19 12:00 97.7 97 20 136/81 (99) 96 12/02/19 09:00 Room Air 12/02/19 08:00 96.4 103 18 131/83 (99) 96 12/02/19 06:00 97.5 103 18 145/98 (114) 96 12/02/19 00:00 97.7 102 20 149/110 (123) 97 12/01/19 21:00 Room Air 12/01/19 19:54 98.2 105 20 141/90 (107) 99 Height (Feet): 6 Height (Inches): 1.00 Weight (Pounds): 127 General Appearance: no acute distress HEENT: normocephalic, atraumatic, anicteric, mucous membranes moist Respiratory/Chest: lungs clear, normal breath sounds, no respiratory distress, no accessory muscle use, respiratory distress Cardiovascular: normal rate, regular rhythm Abdomen: normal bowel sounds, soft, non tender, no organomegaly Genitourinary: other - no jacobs Extremities: other - right leg/foot with less cellulitis Laboratory Tests Test 12/02/19 12:02 POC Whole Blood Glucose 261 MG/DL (74-106) H Current Medications Medications (Trade) Dose Ordered Sig/Mika Route PRN Reason Start Time Stop Time Status Last Admin Dose Admin Acetaminophen (Tylenol) 650 mg Q4H PRN ORAL Mild Pain (Pain Scale 1-3) 12/01/19 10:00 12/31/19 09:59 Aspirin (Ecotrin) 81 mg DAILY ORAL 12/01/19 11:00 01/15/20 10:59 12/02/19 08:08 Benztropine Mesylate (Cogentin) 1 mg BID ORAL 12/01/19 11:00 12/31/19 10:59 12/02/19 17:05 Cefepime HCl 2 gm/ Dextrose 100 ml @ 200 mls/hr Q12HR IVPB 12/01/19 21:00 12/08/19 20:59 12/02/19 08:05 Dextrose (Dextrose 50%) 25 ml Q30M PRN IV Hypoglycemia 12/01/19 10:00 02/29/20 09:59 Dextrose (Dextrose 50%) 50 ml Q30M PRN IV Hypoglycemia 12/01/19 10:00 02/29/20 09:59 Docusate Sodium (Colace) 100 mg EVERY 12 HOURS ORAL 12/01/19 10:45 12/31/19 10:44 12/02/19 08:08 Haloperidol (Haldol) 4 mg BID ORAL 12/01/19 12:00 01/15/20 11:59 12/02/19 17:05 Heparin Sodium (Porcine) (Heparin 5000 units/ml) 5,000 units EVERY 12 HOURS SUBQ 12/01/19 10:45 01/15/20 10:44 12/02/19 08:07 Hydromorphone HCl (Dilaudid) 0.5 mg Q4H PRN IVP Severe Pain (Pain Scale 7-10) 12/01/19 10:00 12/08/19 09:59 Insulin Aspart (NovoLOG) BEFORE MEALS AND HS SUBQ 12/01/19 11:30 02/29/20 11:29 12/02/19 12:41 Ondansetron HCl (Zofran) 4 mg Q6H PRN IVP Nausea & Vomiting 12/01/19 10:00 12/31/19 09:59 Sodium Chloride 1,000 ml @ 75 mls/hr [id number] IV 12/01/19 10:56 12/31/19 10:55 12/02/19 12:42 Vancomycin HCl (Vanco pharmacy to dose) 1 ea DAILY PRN MISC Per rx protocol 12/01/19 10:00 12/31/19 09:59 Vancomycin HCl 1 gm/Sodium Chloride 275 ml @ 183.708 mls/hr Q12HR IVPB 12/01/19 21:00 12/06/19 20:59 12/02/19 09:17 Isabel Lee MD Dec 02, 2019 17:20
--- NOTE | 2019-12-02 17:21 | NUR ---
NURSE NOTES: Patient's IV line on the right AC noted to be slightly red around the area and pt c/o burning and irritation on the site. IV line was removed, pt verbalized relief. Patient does not want to have an IV line started at this time, explained to patient the importance of an IV line, offered to re-insert x 3 but refused at this time, pt stated that he might be willing to try later on. Will continue to monitor. Dr. Rome made aware.
--- NOTE | 2019-12-02 19:14 | NUR ---
HAND-OFF: Report given to EBONIE Tate.
--- NOTE | 2019-12-02 19:16 | NUR ---
NURSE NOTES: Patient in bed, awake and alert x3-4. On room air with no signs of distress SOB. No IV access at this time. Patient refused IV reinsertion per AM shift RN. Will attempt to reinsert PM shift. Bed locked and in lowest position. Call light in reach. Will continue to monitor the patient.
--- NOTE | 2019-12-02 19:45 | Consultation ---
DATE OF CONSULTATION: 12/02/2019 INFECTIOUS DISEASES CONSULTATION CONSULTING PHYSICIAN: Isabel Lee MD. ATTENDING PHYSICIAN: Fermin Tate MD. REFERRING PHYSICIAN: 1. Fermin Tate MD. 2. Bruce Rome MD. REASON FOR CONSULTATION: 1. Right foot and leg cellulitis. 2. Right foot possible infected great toe wound CHIEF COMPLAINT: The patient's chief complaint coming into the hospital is right lower extremity cellulitis. HISTORY OF PRESENT ILLNESS: This is a very pleasant 44-year-old male who had what looks like some type of cut to his right foot great toe with cellulitis of the right foot and right leg. Infectious Diseases consultation was requested. I put him on vancomycin and cefepime. X-ray showed no osteo. Wound culture pending of the right foot great toe. MAR was noted. Orders were noted. Notes were reviewed. The patient will be continued on vancomycin and cefepime for now. REVIEW OF SYSTEMS: Main issue is right foot, leg pain, and toe pain. He has no fevers.CARDIAC: No chest pain. GASTROINTESTINAL: No nausea, vomiting, or diarrhea. GENITOURINARY: No Barrios. No dysuria or frequency. PULMONARY: No shortness of breath. SKIN: No rash. PAST MEDICAL HISTORY: The patient's past medical history includes the following: The patient has a past medical history of paranoid schizophrenia, hypertension, chronic systolic heart disease with decreased ejection fraction of 20%, CHF, diabetes type 2. ALLERGIES: No known drug allergies. No antibiotic allergies. SOCIAL HISTORY: Negative for smoking, alcohol or drug abuse. FAMILY HISTORY: Noncontributory. MEDICATIONS: Upon reviewing the MAR, he is on following medications. He is on vancomycin, cefepime, haloperidol, insulin, aspirin, benztropine, sodium, heparin, docusate, acetaminophen, hydromorphone, Zofran, IV fluids. Outside medications noted and reconciliated. PHYSICAL EXAMINATION: VITAL SIGNS: Temperature 98.1, pulse rate 90, respiratory rate 19, blood pressure 130/87, saturation 96% on room air. GENERAL: Alert, responsive, oriented. HEAD AND NECK: Oral exam, no thrush. Eye exam, no icterus. Normocephalic. Neck is supple. HEART: Regular. No gallop or murmur. ABDOMEN: Soft. Positive bowel sounds. Nontender. LUNGS: Clear bilaterally. No rhonchi or rales. SKIN: No rash. MUSCULOSKELETAL: No effusion. Legs, he has right leg and foot cellulitis. He also has wound on the right foot great toe, which is not necrotic, may be mild slough, mostly red. No gangrene noted. No septic arthritis. Right leg has redness and warmth. Right foot as discussed but it seems to be improved since yesterday. NEUROLOGIC: Intact. LINE SITES: Without phlebitis. GENITOURINARY: No Barrios. LABORATORY AND DIAGNOSTIC DATA: White count 7.3, hemoglobin 14.6. Creatinine 1.5. Wound culture of the right foot great toe is pending. X-ray of the right foot showed no evidence of osteo. ASSESSMENT AND PLAN: 1. The patient has right foot and leg cellulitis with swelling and warmth, most likely nidus of infection of the right foot great toe. There is an open wound. X-ray of the right foot showed no osteo. We will continue antibiotics vancomycin and cefepime for MRSA and gram-negative coverage. Continue vancomycin and cefepime for right foot and leg cellulitis and also possible right foot infected great toe/first toe wound. Check wound culture. X-ray showed osteo. Continue vancomycin and cefepime. Monitor right foot and leg cellulitis. Continue wound care protocol. 2. Elevated creatinine. 3. Diabetes. 4. Hypertension. 5. Blood sugar and blood pressure treatment per primary care team. 6. CHF. 7. Decreased ejection fraction. 8. Paranoid schizophrenia. 9. The patient was seen by podiatry and clinically there is no indication for osteo. Continue local wound care per podiatry. 10. Allergies are negative. 11. Social history is negative. 12. Family history is noncontributory. 13. MAR was noted. 14. Case was discussed with RN. Thank you for this consultation. I will follow with you. Isabel Lee M.D. DR: May JOB#: [id number] CC:
--- NOTE | 2019-12-02 19:57 | NUR ---
NURSE NOTES: Patient refusing IV reinsertion. Attempted to explain that the patient is to receive antibiotics tonight via IV, but patient continues to refuse, stating "I'm going home tomorrow, anyway". Left message for Dr. Heredia. Awaiting call back. Will continue to monitor the patient.
--- NOTE | 2019-12-02 20:12 | NUR ---
NURSE NOTES: New orders received from Dr. Heredia. Will follow plan of care.
--- NOTE | 2019-12-02 20:42 | NUR ---
NURSE NOTES: Patient refusing accu-check. Explained risks and benefits but patient continues to refuse. Will continue to monitor.
[2019-12-02] MEDS: Augmentin 875mg Tab ORAL SCH (20:57)
[2019-12-02] MEDS: Doxycycline Monohydrate 100mg ORAL SCH (20:57)
[2019-12-03] VITALS: BP 130/96
[2019-12-03 03:42] VITALS: BP 132/81
[2019-12-03] MEDS: NovoLOG Insulin Flexpen SUBQ SCH (06:00)
--- NOTE | 2019-12-03 06:09 | NUR ---
NURSE NOTES: Patient refused accucheck this morning and insulin. Explained risks and benefits but patient continues to refuse. States he's "done being poked".
--- NOTE | 2019-12-03 07:45 | NUR ---
NURSE NOTES: Patient awake and alert respirations unlabored.Patient up in room ambulating,gait is steady,no complaints at this time.Breakfast at bedside.
[2019-12-03] MEDS: Heparin 5000 units/ml inj SUBQ SCH (08:44)
[2019-12-03 08:48] VITALS: BP 150/107
--- NOTE | 2019-12-03 08:49 | NUR ---
NURSE NOTES: Patient refusing his morning routine medications at this time,patient state he wants to talk with his Doctor he wants to be discharged today.Reinforce importance of his medication,will attempt later .
[2019-12-03] MEDS: Haloperidol 1mg tab ORAL SCH (09:00)
[2019-12-03] MEDS: Augmentin 875mg Tab ORAL SCH (09:00)
[2019-12-03] MEDS: Docusate 100mg cap ORAL SCH (09:00)
[2019-12-03] MEDS: Doxycycline Monohydrate 100mg ORAL SCH (09:00)
[2019-12-03] MEDS: Aspirin EC 81mg tab ORAL SCH (09:00)
[2019-12-03] MEDS: Benztropine 1mg tab ORAL SCH (09:00)
--- NOTE | 2019-12-03 09:55 | NUR ---
NURSE NOTES: DR Colindres here to see patient and aware that patient refusing medications speaking with patient Mother at this time patient wants to be discharge home will follow up.
--- NOTE | 2019-12-03 10:02 | NUR ---
NURSE NOTES: DR Colindres again spoke with patient regarding staying in the hospital for antibotics to treat the infection patient again state he wants to be discharge,DR state if you leave it will be against medical advice,patient state he will sign to leave Against Medical advice.
--- NOTE | 2019-12-03 10:19 | NUR ---
NURSE NOTES: Patient has his personal belongings,ID hospital band removed.Patient has no IV line.Patient left Hospital patient state he has money to get home.
--- NOTE | 2019-12-03 12:52 | Discharge Summary ---
Discharge Summary Hospital Course Date of Admission Dec 01, 2019 at 08:48 Date of Discharge Dec 03, 2019 at 10:20 Admitting Diagnosis RLE cellulitis HPI Luis Antonio Chatman is a 44 year old male who was admitted on Dec 01, 2019 at 08:48 for Right Lower Extremity Cellulitis Hospital Course Patient was treated for cellulitis with IV abx but refused all labs, was combative and refused antibiotics. He left AMA after discussing all risks with him. He was AAOx4 and had insight to the situation. Refused had written prescription of antibiotic, said he will not take them. I spent 40 min on this AMA dc discussing with patient, patients mother and RNs Discharge Discharge Vital Signs Last Vital Signs Date Time Temp Pulse Resp B/P (MAP) Pulse Ox O2 Delivery O2 Flow Rate FiO2 12/03/19 10:00 Room Air 12/03/19 08:48 98.5 100 20 150/107 (121) 95 Discharge Disposition AMA Discharge Diagnoses: (1) Cellulitis and abscess of foot (2) Diabetes mellitus type 2 with complications, uncontrolled (3) CHF (congestive heart failure) (4) Cellulitis Benjamin Colindres M.D. Dec 03, 2019 12:52
--- NOTE | 2019-12-03 16:48 | NUR ---
*_* INSURANCE *_* ALL AVAILABLE CLINICALS AND REVIEWS HAVE BEEN FAXED TO : [facility] AUTH#[id number] FAX CLINICALS TO [facility]. [facility]. CARE P:[phone] F:[phone]
--- NOTE | 2019-12-03 23:04 | Psych Consult Progress Note ---
Psychiatry Progress Note Psychiatry Progress Note Allergies: Coded Allergies: No Known Allergies (Unverified , 12/01/19) Objective Data Height (Feet): 6 Height (Inches): 1.00 Weight (Pounds): 127 Assessment/Plan Status: Kane Urbina MD Dec 03, 2019 23:04
--- NOTE | 2019-12-04 00:30 | Consultation ---
DATE OF CONSULTATION: 12/03/2019 CONSULTING PHYSICIAN: Kane Rose MD. HISTORY OF PRESENT ILLNESS: Patient has a history of schizophrenia and multiple medical issues including hypertension, CHD who has been admitted to the hospital for medical stabilization. Patient has been agitated, uncooperative, attempted to leave the hospital several times. Patient is easily agitated and labile. PAST PSYCHIATRIC HISTORY: Schizophrenia. PAST MEDICAL HISTORY: As above. ALLERGIES: No known drug allergies. SUBSTANCE ABUSE HISTORY: No known history of illicit drug use or alcohol. MENTAL STATUS EXAMINATION: Alert, oriented times self, place, situation. Mood is neutral. Affect is flat. Thought process is concrete. Thought content, no suicidal or homicidal ideation. Cognition is intact. Insight and judgment is fair. ASSESSMENT: [place] I Schizophrenia, chronic paranoid type. [place] II Deferred. [place] III As above. [place] IV Low. [place] V 50. PLAN: 1. Continue current psychotropic medications. 2. Provide the patient with reality orientation and supportive therapy. Kane Rose M.D. DR: CHARLES JOB#: [id number] CC:
== END 2019-12-03 10:20 | disposition left against medical advice (07) | DRG 380 ==
LOC: EMR 08:20 → 4E 08:48 → EDBEDREQ 10:09 → 4E 11:15
DX: E11.621 Type 2 diabetes mellitus with foot ulcer (principal); L02.611 Cutaneous abscess of right foot; L97.519 Non-pressure chronic ulcer of other part of right foot with unspecified severity; L03.115 Cellulitis of right lower limb; E11.65 Type 2 diabetes mellitus with hyperglycemia; I11.0 Hypertensive heart disease with heart failure; I50.32 Chronic diastolic (congestive) heart failure; F20.0 Paranoid schizophrenia; Z91.19 Patient's noncompliance with other medical treatment and regimen
CPT/HCPCS: 36415; 80053; 81003; 82962; 83605; 83880; 85025; 93306; 93970; 96361; 96365; 96375; 99285; J1815; J7030

== ENCOUNTER 2020-04-19 09:41 | Inpatient (IN) | payer MEDICAID ==
[~2020-04-19] VITALS: Ht 188 cm; Wt 110.2 kg
[~2020-04-19 09:41] MED LIST: ASPIR 8181 MG ORAL; BENZTROPINE MESY1 MG ORAL; HALOPERIDOL1 MG ORAL; LISINOPRIL30 MG ORAL; METFORMIN HCL500 M1 ORAL; POTASSIUM CHLO20 ME1 ORAL; POTASSIUM CHLO20 ME2 ORAL; SPIRONOLACTONE100 MG ORAL; ZOCOR20 M1 ORAL
[2020-04-19 10:00] VITALS: BP 132/90
[2020-04-19 10:41] LABS: BASOPHILS % (AUTO) 0.7 % (0.0-2.0); HEMATOCRIT 46.9 % (42.0-52.0); HEMOGLOBIN 15.5 G/DL (14.2-18.0); LYMPHOCYTES % (AUTO) 7.9 % (20.0-45.0); MEAN CORPUSCULAR VOLUME 91 FL (80-99); MONOCYTES % (AUTO) 9.3 % (1.0-10.0); NEUTROPHILS % (AUTO) 82.2 % (45.0-75.0); PLATELET COUNT 231 K/UL (150-450); RED BLOOD COUNT 5.17 M/UL (4.70-6.10); RED CELL DISTRIBUTION WIDTH 17.9 % (11.6-14.8); WHITE BLOOD COUNT 13.3 K/UL (4.8-10.8)
[2020-04-19 10:49] LABS: APPEARANCE,URINE CLEAR; BILIRUBIN, URINE NEGATIVE (NEGATIVE); GLUCOSE, URINE (UA) 4+ (NEGATIVE); KETONES,URINE 3+ (NEGATIVE); LEUKOCYTE ESTERASE ,URINE NEGATIVE (NEGATIVE); NITRITE,URINE NEGATIVE (NEGATIVE); PH,URINE 5 (4.5-8.0); PROTEIN,URINE 3+ (NEGATIVE); UROBILINOGEN,URINE NORMAL MG/DL (0.0-1.0)
[2020-04-19 10:55] LABS: COLOR,URINE YELLOW
[2020-04-19 11:02] LABS: ANION GAP 11 mmol/L (5-15); BLOOD UREA NITROGEN 17 mg/dL (7-18); CALCIUM 8.6 MG/DL (8.5-10.1); CARBON DIOXIDE 25 MMOL/L (21-32); CHLORIDE 96 MMOL/L (98-107); CREATININE 1.4 MG/DL (0.55-1.30); POTASSIUM 4.3 MMOL/L (3.5-5.1); SODIUM 132 MMOL/L (136-145)
[2020-04-19 11:05] VITALS: BP 132/85
[2020-04-19 11:12] LABS: ALANINE AMINOTRANSFERASE 34 U/L (12-78); ALBUMIN/GLOBULIN RATIO 0.6 (1.0-2.7); ALKALINE PHOSPHATASE 169 U/L (46-116); ASPARTATE AMINO TRANSFERASE 20 U/L (15-37)
[2020-04-19 11:13] LABS: BILIRUBIN,DIRECT 1.3 MG/DL (0.0-0.3)
--- NOTE | 2020-04-19 11:25 | Diagnostic Imaging Report ---
EXAM: XR Chest, 1 View CLINICAL HISTORY: WEAK TECHNIQUE: Frontal view of the chest. COMPARISON: Chest radiograph on 02/16/2011 FINDINGS: Hardware: None. Lungs/pleura: Patchy opacities in the left mid and lower lung and right lower lung. Possible small left pleural effusion. Heart/mediastinum: Enlargement of the cardiac silhouette. Soft tissues: Unremarkable. Bones: No acute fracture. Upper abdomen: Normal. IMPRESSION: Patchy opacities in the left mid and lower lung and right lower lung which could represent an infectious/inflammatory process. Possible small left pleural effusion.
[2020-04-19 12:14] VITALS: BP 138/80
[2020-04-19] MEDS ORDERED: cefTRIAXone 1 GM in NS 55 ML IVPB ONE (12:30)
[2020-04-19] MEDS ORDERED: Azithromycin 500 MG in NS 275 ML IV ONE (12:30)
--- NOTE | 2020-04-19 14:26 | Emergency Room Report ---
History of Present Illness General Chief Complaint: Generalized Weakness Source: Patient Present Illness HPI 44-year-old male presents ED for evaluation. Mother at bedside. Patient is a poor historian with cognitive delay. History of schizophrenia. States that patient has been coughing for the last few days. Also is not compliant with his medications. History of diabetes. History of congestive heart failure. Denies chest pain or shortness of breath. Denies fevers or chills. States he has some wounds on his legs. No other aggravating relieving factors. Denies any other associated symptoms Allergies: Coded Allergies: No Known Allergies (Unverified , 12/01/19) COVID-19 Screening Contact w/high risk pt: No Recent Travel to affected area: No Experienced COVID-19 symptoms?: No COVID-19 Testing performed TOE PULLER: No Patient History Past Medical History: DM Past Surgical History: none Pertinent Family History: none Social History: Denies: smoking, alcohol use, drug use Immunizations: UTD Reviewed Nursing Documentation: PMH: Agreed; PSxH: Agreed Nursing Documentation-PMH Past Medical History: No History, Except For Hx Cardiac Problems: No Hx Diabetes: Yes Hx Cancer: No Hx Gastrointestinal Problems: No Hx Neurological Problems: No Review of Systems All Other Systems: negative except mentioned in HPI Physical Exam Vital Signs Date Time Temp Pulse Resp B/P (MAP) Pulse Ox O2 Delivery O2 Flow Rate FiO2 04/19/20 09:53 99.3 126 17 126/89 (101) 94 Room Air Sp02 EP Interpretation: reviewed, normal General Appearance: no apparent distress, alert, GCS 15, non-toxic, obese Head: normocephalic, atraumatic Eyes: bilateral eye normal inspection, bilateral eye PERRL ENT: hearing grossly normal, normal pharynx, no angioedema, normal voice Neck: full range of motion, supple/symm/no masses Respiratory: chest non-tender, lungs clear, normal breath sounds, speaking full sentences Cardiovascular #1: no edema, tachycardia Cardiovascular #2: 2+ carotid (R), 2+ carotid (L), 2+ radial (R), 2+ radial (L), 2+ dorsalis pedis (R), 2+ dorsalis pedis (L) Gastrointestinal: normal bowel sounds, non tender, soft, non-distended, no guarding, no rebound Rectal: deferred Genitourinary: normal inspection, no CVA tenderness Musculoskeletal: back normal, normal range of motion, gait/station normal, non- tender Neurologic: alert, motor strength/tone normal, oriented x3, sensory intact, responsive, speech normal Psychiatric: judgement/insight normal, memory normal, mood/affect normal, no suicidal/homicidal ideation Reflexes: 3+ bicep (R), 3+ bicep (L), 3+ tricep (R), 3+ tricep (L), 3+ knee (R), 3+ knee (L) Skin: other - ulcers to bilaeral LEs Lymphatic: no adenopathy Medical Decision Making Diagnostic Impression: Primary Impression: CHF (congestive heart failure) Qualified Codes: I50.9 - Heart failure, unspecified Additional Impressions: Diabetes mellitus type 2 with complications, uncontrolled Pneumonia Qualified Codes: J18.9 - Pneumonia, unspecified organism Schizophrenia Qualified Codes: F20.9 - Schizophrenia, unspecified ER Course Hospital Course 44-year-old male presenting to ED with generalized weakness, coughing. Differential diagnoses include: Pneumonia, UTI, sepsis, dehydration, NH/unstable angina Clinical course Patient placed on stretcher. On monitor worker with tachycardia. After initi al history and physical, I ordered labs, IV fluids, EKG, chest x-ray, blood cultures, UA. Labs - Glucose > 300, minimal leukocytosis, hb/hct stable, lactic 3.5, trop negative EKG - sinus tachycardia no acute ischemic changes interprted by me CXR - bilateral infltrates noted COVID negative Abx given. Given 30 cc/kg fluid bolus. Given insulin. Patient noncompliant with his medications and requires admission case discussed with Dr Camp and they agreed to admit patient to their service for further care and support I feel this is a highly complex case requiring extensive working including EKG/Rhythm strip, Xray/CT/US, Blood/urine lab work, repeat exams while in ED, and administration of strong opiates/narcotics for pain control, admission to hospital or close patient follow up. Diagnosis - CHF, uncontrolled diabetes, pneumonia, schizophrenia Patient admitted to telemetry in serious condition Laboratory Tests Test 04/19/20 10:10 04/19/20 10:19 04/19/20 10:24 04/19/20 12:35 Urine Color Yellow Urine Appearance Clear Urine pH 5 (4.5-8.0) Urine Specific [place] 1.020 (1.005-1.035) Urine Protein 3+ (NEGATIVE) H Urine Glucose (UA) 4+ (NEGATIVE) H Urine Ketones 3+ (NEGATIVE) H Urine Blood 1+ (NEGATIVE) H Urine Nitrite Negative (NEGATIVE) Urine Bilirubin Negative (NEGATIVE) Urine Urobilinogen Normal MG/DL (0.0-1.0) Urine Leukocyte Esterase Negative (NEGATIVE) Urine RBC 0-2 /HPF (0 - 0) H Urine WBC 0 /HPF (0 - 0) Urine Squamous Epithelial Cells Occasional /LPF Urine Bacteria Occasional /HPF (NONE) Urine Mucus Occasional /LPF White Blood Count 13.3 K/UL (4.8-10.8) H Red Blood Count 5.17 M/UL (4.70-6.10) Hemoglobin 15.5 G/DL (14.2-18.0) Hematocrit 46.9 % (42.0-52.0) Mean Corpuscular Volume 91 FL (80-99) Mean Corpuscular Hemoglobin 29.9 PG (27.0-31.0) Mean Corpuscular Hemoglobin Concent 32.9 G/DL (32.0-36.0) Red Cell Distribution Width 17.9 % (11.6-14.8) H Platelet Count 231 K/UL (150-450) Mean Platelet Volume 10.5 FL (6.5-10.1) H Neutrophils (%) (Auto) 82.2 % (45.0-75.0) H Lymphocytes (%) (Auto) 7.9 % (20.0-45.0) L Monocytes (%) (Auto) 9.3 % (1.0-10.0) Eosinophils (%) (Auto) 0.0 % (0.0-3.0) Basophils (%) (Auto) 0.7 % (0.0-2.0) Sodium Level 132 MMOL/L (136-145) L Potassium Level 4.3 MMOL/L (3.5-5.1) Chloride Level 96 MMOL/L (98-107) L Carbon Dioxide Level 25 MMOL/L (21-32) Anion Gap 11 mmol/L (5-15) Blood Urea Nitrogen 17 mg/dL (7-18) Creatinine 1.4 MG/DL (0.55-1.30) H Estimat Glomerular Filtration Rate > 60 mL/min (>60) Glucose Level 378 MG/DL (74-106) H Calcium Level 8.6 MG/DL (8.5-10.1) Magnesium Level 2.0 MG/DL (1.8-2.4) Total Bilirubin 3.0 MG/DL (0.2-1.0) H Direct Bilirubin 1.3 MG/DL (0.0-0.3) H Aspartate Amino Transf (AST/SGOT) 20 U/L (15-37) Alanine Aminotransferase (ALT/SGPT) 34 U/L (12-78) Alkaline Phosphatase 169 U/L (46-116) H Troponin I 0.039 ng/mL (0.000-0.056) Pro-B-Type Natriuretic Peptide Pending Total Protein 8.4 G/DL (6.4-8.2) H Albumin 3.0 G/DL (3.4-5.0) L Globulin 5.4 g/dL Albumin/Globulin Ratio 0.6 (1.0-2.7) L Acetone Level Negative (NEGATIVE) Urine Opiates Screen Negative (NEGATIVE) Urine Barbiturates Screen Negative (NEGATIVE) Phencyclidine (PCP) Screen Negative (NEGATIVE) Urine Amphetamines Screen Negative (NEGATIVE) Urine Benzodiazepines Screen Negative (NEGATIVE) Urine Cocaine Screen Negative (NEGATIVE) Urine Marijuana (THC) Screen Negative (NEGATIVE) Lactic Acid Level 3.50 mmol/L (0.4-2.0) H EKG Diagnostic Results Troponin ordered: Yes Rate: tachycardiac Rhythm: NSR ST Segments: no acute changes ASA given to the pt in ED: No Rhythm Strip Diag. Results EP Interpretation: yes Rhythm: NSR, no PVC's, no ectopy Chest X-Ray Diagnostic Results Chest X-Ray Diagnostic Results : Chest X-Ray Ordered: Yes # of Views/Limited/Complete: 1 View Indication: Other - cough EP Interpretation: Yes Interpretation: no pneumothorax, no acute cardiopulmonary disease, other - bilateral infiltrates Impression: Other - pneumonia Electronically Signed by: Electronically signed by Giovany Maravilla MD Last Vital Signs Date Time Temp Pulse Resp B/P (MAP) Pulse Ox O2 Delivery O2 Flow Rate FiO2 04/19/20 12:14 99.3 122 25 138/80 100 Room Air Status: improved Disposition: ADMITTED INPATIENT Condition: Serious Referrals: [facility],REFERRING (PCP) Giovany Maravilla MD Apr 19, 2020 14:26
[2020-04-19 15:51] VITALS: BP 142/90
[2020-04-19 17:08] VITALS: BP 139/80
[2020-04-19] MEDS ORDERED: Dyna-Hex 2% Top Sol 2oz TOPIC PRN (20:45)
[2020-04-19] MEDS ORDERED: Zolpidem 5mg tab ORAL PRN (20:45)
[2020-04-19] MEDS ORDERED: LORazepam Inj 2mg/ml 1ml IV PRN (20:45)
[2020-04-19 22:34] VITALS: BP 128/90
[2020-04-20] VITALS: BP 130/100
[2020-04-20 04:00] VITALS: BP 122/88
[2020-04-20 08:00] VITALS: BP 117/83
[2020-04-20] MEDS: Pantoprazole Inj IV SCH (08:33)
[2020-04-20] MEDS: Enoxaparin 40mg Inj SUBQ SCH (08:40)
--- NOTE | 2020-04-20 09:42 | Consultation ---
History of Present Illness General Date patient seen: Apr 20, 2020 Time patient seen: 08:00 Chief Complaint: Generalized Weakness Referring physician: Nick Escamilla Reason for Consultation: B/L Pneumonia with leg wound and cellulitis Present Illness HPI This is a 44-year-old male with PMH of DM, CHF , and schizophrenia presented to ED for evaluation of left leg wound . Patient is a poor historian with cognitive delay due to schizophrenia. He has been coughing for the last few days. Also is not compliant with his medications. He denies chest pain or shortness of breath. Denies fevers or chills. he has some wounds on his legs. No other aggravating relieving factors. Denies any other associated symptoms. CXR showed patchy infiltrates in both lungs perez , so he was started on ceftriaxone and azithromycin empirically , had negative rapid test for COVID 19 and admitted to the medical floor . ID was consulted for antibiotics treatment and further care . Allergies: Coded Allergies: No Known Allergies (Unverified , 12/01/19) Medication History Scheduled Aspirin* (Aspir 81*), 81 MG ORAL DAILY, (Reported) Benztropine Mesylate* (Benztropine Mesylate*), 1 MG ORAL BID, (Reported) Haloperidol* (Haldol*), 4 MG ORAL BID, (Reported) Lisinopril* (Lisinopril*), 20 MG ORAL DAILY, (Reported) Metformin Hcl* (Metformin Hcl*), 500 MG ORAL TWICE A DAY, (Reported) Potassium Chloride (Potassium Chloride), 20 MEQ ORAL DAILY, (Reported) Potassium Chloride* (K-Dur*), 20 MEQ ORAL DAILY, (Reported) Simvastatin (Zocor), 20 MG ORAL BEDTIME, (Reported) Spironolactone* (Spironolactone*), 25 MG ORAL DAILY, (Reported) Patient History Limited by: other - schizophrenia History Provided By: Family Member, Medical Record Healthcare decision maker Resuscitation status Advanced Directive on File Past Medical/Surgical History Past Medical/Surgical History: (1) Schizophrenia (2) Diabetes mellitus type 2 with complications, uncontrolled (3) CHF (congestive heart failure) Review of Systems Constitutional: Reports: weakness Eye: Reports: no symptoms ENT: Reports: no symptoms Respiratory: Reports: cough Cardiovascular: Reports: no symptoms Gastrointestinal: Reports: no symptoms Genitourinary: Reports: no symptoms Musculoskeletal: Reports: muscle pain Skin: Reports: change in color, dryness, other Psychiatric: Reports: anxiety Neurological: Reports: no symptoms Endocrine: Reports: no symptoms Hematologic/Lymphatic: Reports: no symptoms Physical Exam General Appearance: WD/WN, no apparent distress, alert, lethargic, confused Lines, tubes and drains: peripheral HEENT: normocephalic, atraumatic, PERRL Neck: non-tender Respiratory/Chest: chest wall non-tender, lungs clear, normal breath sounds, no respiratory distress, no accessory muscle use Breasts: no masses Cardiovascular/Chest: normal peripheral pulses, normal rate, regular rhythm, no gallop/murmur, no JVD Abdomen: normal bowel sounds, non tender, soft, no organomegaly, no mass Genitourinary/Rectal: normal genital exam Extremities: normal range of motion, non-tender, inflammation, trace edema, other - open wound Skin Exam: normal pigmentation, warm/dry Neurologic: sports apparel internship II-XII grossly normal, alert Lymphatic: anterior cervical Musculoskeletal: normal muscle bulk, no effusion Last 24 Hour Vital Signs Date Time Temp Pulse Resp B/P (MAP) Pulse Ox O2 Delivery O2 Flow Rate FiO2 04/20/20 04:00 105 04/20/20 04:00 98.6 113 22 122/88 (99) 98 04/20/20 00:00 129 04/20/20 00:00 98.8 137 22 130/100 (110) 97 04/19/20 22:34 Room Air 04/19/20 22:34 99.9 114 24 128/90 (103) 96 04/19/20 22:15 98.5 118 19 126/76 98 Room Air 04/19/20 17:08 99.2 123 20 139/80 100 Room Air 04/19/20 15:51 99.1 123 24 142/90 100 Room Air 04/19/20 12:14 99.3 122 25 138/80 100 Room Air 04/19/20 11:05 99.2 143 25 132/85 100 Room Air 04/19/20 10:00 120 20 Room Air 04/19/20 10:00 99.2 120 20 132/90 100 Room Air 04/19/20 09:53 99.3 126 17 126/89 (101) 94 Room Air Intake and Output 04/19/20 04/20/20 19:00 07:00 Intake Total 2325 ml Balance 2325 ml Intake IV Total 2325 ml # Voids 1 4 # Bowel Movements 1 Laboratory Tests Test 04/19/20 10:10 04/19/20 10:19 04/19/20 10:24 04/19/20 12:35 Urine Color Yellow Urine Appearance Clear Urine pH 5 (4.5-8.0) Urine Specific [place] 1.020 (1.005-1.035) Urine Protein 3+ (NEGATIVE) H Urine Glucose (UA) 4+ (NEGATIVE) H Urine Ketones 3+ (NEGATIVE) H Urine Blood 1+ (NEGATIVE) H Urine Nitrite Negative (NEGATIVE) Urine Bilirubin Negative (NEGATIVE) Urine Urobilinogen Normal MG/DL (0.0-1.0) Urine Leukocyte Esterase Negative (NEGATIVE) Urine RBC 0-2 /HPF (0 - 0) H Urine WBC 0 /HPF (0 - 0) Urine Squamous Epithelial Cells Occasional /LPF Urine Bacteria Occasional /HPF (NONE) Urine Mucus Occasional /LPF White Blood Count 13.3 K/UL (4.8-10.8) H Red Blood Count 5.17 M/UL (4.70-6.10) Hemoglobin 15.5 G/DL (14.2-18.0) Hematocrit 46.9 % (42.0-52.0) Mean Corpuscular Volume 91 FL (80-99) Mean Corpuscular Hemoglobin 29.9 PG (27.0-31.0) Mean Corpuscular Hemoglobin Concent 32.9 G/DL (32.0-36.0) Red Cell Distribution Width 17.9 % (11.6-14.8) H Platelet Count 231 K/UL (150-450) Mean Platelet Volume 10.5 FL (6.5-10.1) H Neutrophils (%) (Auto) 82.2 % (45.0-75.0) H Lymphocytes (%) (Auto) 7.9 % (20.0-45.0) L Monocytes (%) (Auto) 9.3 % (1.0-10.0) Eosinophils (%) (Auto) 0.0 % (0.0-3.0) Basophils (%) (Auto) 0.7 % (0.0-2.0) Sodium Level 132 MMOL/L (136-145) L Potassium Level 4.3 MMOL/L (3.5-5.1) Chloride Level 96 MMOL/L (98-107) L Carbon Dioxide Level 25 MMOL/L (21-32) Anion Gap 11 mmol/L (5-15) Blood Urea Nitrogen 17 mg/dL (7-18) Creatinine 1.4 MG/DL (0.55-1.30) H Estimat Glomerular Filtration Rate > 60 mL/min (>60) Glucose Level 378 MG/DL (74-106) H Calcium Level 8.6 MG/DL (8.5-10.1) Magnesium Level 2.0 MG/DL (1.8-2.4) Total Bilirubin 3.0 MG/DL (0.2-1.0) H Direct Bilirubin 1.3 MG/DL (0.0-0.3) H Aspartate Amino Transf (AST/SGOT) 20 U/L (15-37) Alanine Aminotransferase (ALT/SGPT) 34 U/L (12-78) Alkaline Phosphatase 169 U/L (46-116) H Troponin I 0.039 ng/mL (0.000-0.056) Pro-B-Type Natriuretic Peptide Pending Total Protein 8.4 G/DL (6.4-8.2) H Albumin 3.0 G/DL (3.4-5.0) L Globulin 5.4 g/dL Albumin/Globulin Ratio 0.6 (1.0-2.7) L Acetone Level Negative (NEGATIVE) Urine Opiates Screen Negative (NEGATIVE) Urine Barbiturates Screen Negative (NEGATIVE) Phencyclidine (PCP) Screen Negative (NEGATIVE) Urine Amphetamines Screen Negative (NEGATIVE) Urine Benzodiazepines Screen Negative (NEGATIVE) Urine Cocaine Screen Negative (NEGATIVE) Urine Marijuana (THC) Screen Negative (NEGATIVE) Lactic Acid Level 3.50 mmol/L (0.4-2.0) H Test 04/19/20 15:06 04/19/20 17:28 Lactic Acid Level 5.50 mmol/L (0.66-2.22) H 1.10 mmol/L (0.4-2.0) Microbiology Date/Time Source Procedure Growth Status 04/19/20 22:01 Wound Gram Stain - Final Resulted 04/19/20 22:01 Wound Wound Culture Pending Resulted 04/19/20 11:20 Nasopharynx SARS-CoV-2 RdRp Gene Assay - Final Complete Height (Feet): 6 Height (Inches): 2.00 Weight (Pounds): 243 Medications Current Medications Medications (Trade) Dose Ordered Sig/Mika Route PRN Reason Start Time Stop Time Status Last Admin Dose Admin Acetaminophen (Tylenol) 650 mg Q4H PRN ORAL Mild Pain (Pain Scale 1-3) 04/19/20 20:45 05/19/20 20:44 Azithromycin 500 mg/Dextrose 275 ml @ 275 mls/hr Q24H IV 04/20/20 12:30 04/25/20 12:29 Ceftriaxone Sodium 1 gm/ Dextrose 55 ml @ 110 mls/hr Q24H IVPB 04/20/20 12:00 04/27/20 11:59 Chlorhexidine Gluconate (Charity-Hex 2%) 1 applic BEFORE DINNER PRN TOPIC Diarrhea 04/19/20 20:45 07/18/20 20:44 Enoxaparin Sodium (Lovenox) 40 mg Q24H SUBQ 04/20/20 09:00 07/19/20 08:59 Lorazepam (Ativan 2mg/ml 1ml) 0.5 mg Q4H PRN IV For Anxiety 04/19/20 20:45 04/26/20 20:44 Pantoprazole (Protonix) 40 mg DAILY IV 04/20/20 09:00 05/20/20 08:59 Sodium Chloride 1,000 ml @ 50 mls/hr Q20H IV 04/19/20 21:45 05/19/20 21:44 04/19/20 23:55 Zolpidem Tartrate (Ambien) 5 mg HSPRN PRN ORAL Insomnia 04/19/20 20:45 04/26/20 20:44 Assessment/Plan Problem List: (1) Pneumonia Assessment & Plan: with B/L patchy infiltrates and negative rapid test for COVID , will switch antibiotics to cefepime and vancomycin empirically , send sputum culture , aspiration precaution ICD Codes: J18.9 - Pneumonia, unspecified organism SNOMED: 254771516 Qualifiers: Qualified Codes: J18.9 - Pneumonia, unspecified organism (2) Open leg wound Assessment & Plan: start cefazoline with doxy empirically, wound care consult ICD Codes: S81.809A - Unspecified open wound, unspecified lower leg, initial encounter SNOMED: 01523617 (3) Cellulitis Assessment & Plan: will start cefazoline and doxycycline empirically , keep leg elevated all the time ICD Codes: L03.90 - Cellulitis, unspecified SNOMED: 650139398 (4) CHF (congestive heart failure) Assessment & Plan: continue cardiac meds with diuretics ICD Codes: I50.9 - Heart failure, unspecified SNOMED: 51517848 Qualifiers: Qualified Codes: I50.9 - Heart failure, unspecified (5) Diabetes mellitus type 2 with complications, uncontrolled Assessment & Plan: tight glycemic control to keep blood glucose between 100-140 ICD Codes: E11.8 - Type 2 diabetes mellitus with unspecified complications; E11.65 - Type 2 diabetes mellitus with hyperglycemia SNOMED: 41947741, 328320225, 066266501 Status: Marilou Mckinnon M.D. Apr 20, 2020 09:42
[2020-04-20] MEDS ORDERED: Cefepime HCl 2 GM in D5W 55 ML IVPB SCH (11:00)
[2020-04-20 12:00] VITALS: BP 117/86
[2020-04-20] MEDS ORDERED: cefTRIAXone 1 GM in D5W 55 ML IVPB SCH (12:00)
[2020-04-20] MEDS: Levemir Flexpen SUBQ SCH (12:00)
[2020-04-20] MEDS: NovoLOG Insulin Flexpen SUBQ SCH ×2 (12:00→16:32)
[2020-04-20] MEDS: Vancomycin 1.5gm/300ml Premix IVPB SCH (12:20)
[2020-04-20] MEDS ORDERED: Azithromycin 500 MG in D5W 275 ML IV SCH (12:30)
[2020-04-20] MEDS: Cefepime HCl 2 GM in D5W 55 ML IVPB SCH ×2 (14:00→21:35)
--- NOTE | 2020-04-20 15:15 | History and Physical Report ---
DATE OF ADMISSION: 04/19/2020 SOURCE OF INFORMATION: Patient and EMR. HISTORY OF PRESENT ILLNESS: Patient is a 44-year-old male with history of uncontrolled diabetes, who presented with worsening of the pain and swelling of the lower extremities. Patient's initial vital signs showed tachycardia along with the abnormal leukocyte counts. Patient received antibiotic and blood culture was obtained in the ER. At the time of evaluation, patient denies any chest pain or shortness of breath nose. No nausea. No vomitus. No diarrhea. No constipation. ALLERGIES: NKDA. FAMILY HISTORY: Reviewed noncontributory. PAST MEDICAL AND SURGICAL HISTORY: Diabetes, otherwise denies. SOCIAL HISTORY: Patient reported that lives with the mother. Denies history of illicit drug abuse, smoking, and alcohol abuse. MEDICATIONS: Current hospital medications including, but not limited to azithromycin, ceftriaxone. PHYSICAL EXAMINATION: VITAL SIGNS: Blood pressure 130/80, temperature 98.2, pulse oximetry 98% on room air, pulse rate 120, respiratory rate 18. HEAD AND NECK: Atraumatic and normocephalic. CHEST: Diffuse bronchial breathing sounds. HEART: S1, S2. Regular rate and rhythm. ABDOMEN: Soft. No organomegaly. MUSCULOSKELETAL: Positive for the edema in the lower extremity. NEUROLOGIC: Patient is awake, alert, oriented x3. LABORATORY DATA: Labs dated 04/19/2020 shows WBC 13.3, hemoglobin of 15.5. Sodium of 132, potassium 4.3, BUN 17, creatinine 1.4. Bilirubin of 3. Chest x-ray dated 04/19/2020 reviewed. ASSESSMENT AND PLAN: 1. Community-acquired pneumonia. 2. Renal failure, age indeterminate. 3. Abnormal liver function tests. 4. Lower extremity edema, possibility of heart failure cannot be excluded. 5. Diabetes type 2. 6. GI and DVT prophylaxes. 7. Sepsis secondary to #1. PLAN OF CARE: We will continue with empiric antibiotic treatment. Consult Cardiology. We will obtain a 2D echo. Start diuresis. Nephrology has been consulted. COMMENTS: The time of this dictation does not reflect the actual time of encounter on 04/19/2020. Atul Camp M.D. DR: SWETHA JOB#: [id number] CC:
--- NOTE | 2020-04-20 15:38 | Consultation ---
History of Present Illness General Date patient seen: Apr 20, 2020 Time patient seen: 10:00 Chief Complaint: Left Leg Ulcer Referring physician: Nick Escamilla Reason for Consultation: Left leg wound and cellulitis Present Illness HPI Pt seen bedside Left anterior leg ulceration. Pt resting at bedside, relates minimal pain. to leg ulcer. Denies any acute SOI. Allergies: Coded Allergies: No Known Allergies (Unverified , 12/01/19) Medication History Scheduled Aspirin* (Aspir 81*), 81 MG ORAL DAILY, (Reported) Benztropine Mesylate* (Benztropine Mesylate*), 1 MG ORAL BID, (Reported) Haloperidol* (Haldol*), 4 MG ORAL BID, (Reported) Lisinopril* (Lisinopril*), 20 MG ORAL DAILY, (Reported) Metformin Hcl* (Metformin Hcl*), 500 MG ORAL TWICE A DAY, (Reported) Potassium Chloride (Potassium Chloride), 20 MEQ ORAL DAILY, (Reported) Potassium Chloride* (K-Dur*), 20 MEQ ORAL DAILY, (Reported) Simvastatin (Zocor), 20 MG ORAL BEDTIME, (Reported) Spironolactone* (Spironolactone*), 25 MG ORAL DAILY, (Reported) Patient History Healthcare decision maker Resuscitation status Advanced Directive on File Physical Exam Last 24 Hour Vital Signs Date Time Temp Pulse Resp B/P (MAP) Pulse Ox O2 Delivery O2 Flow Rate FiO2 04/20/20 12:51 114 04/20/20 12:00 99.0 97 21 117/86 (96) 95 04/20/20 09:08 Room Air 04/20/20 08:00 98.1 112 21 117/83 (94) 97 04/20/20 08:00 118 04/20/20 04:00 105 04/20/20 04:00 98.6 113 22 122/88 (99) 98 04/20/20 00:00 129 04/20/20 00:00 98.8 137 22 130/100 (110) 97 04/19/20 22:34 Room Air 04/19/20 22:34 99.9 114 24 128/90 (103) 96 04/19/20 22:15 98.5 118 19 126/76 98 Room Air 04/19/20 17:08 99.2 123 20 139/80 100 Room Air 04/19/20 15:51 99.1 123 24 142/90 100 Room Air Intake and Output 04/19/20 04/20/20 19:00 07:00 Intake Total 2325 ml Balance 2325 ml IV Total 2325 ml # Voids 1 4 # Bowel Movements 1 Laboratory Tests Test 04/19/20 17:28 04/20/20 12:38 Lactic Acid Level 1.10 mmol/L (0.4-2.0) POC Whole Blood Glucose 368 MG/DL (74-106) H Microbiology Date/Time Source Procedure Growth Status 04/19/20 22:01 Wound Gram Stain - Final Resulted 04/19/20 22:01 Wound Wound Culture Pending Resulted Height (Feet): 6 Height (Inches): 2.00 Weight (Pounds): 243 Medications Current Medications Medications (Trade) Dose Ordered Sig/Mika Route PRN Reason Start Time Stop Time Status Last Admin Dose Admin Acetaminophen (Tylenol) 650 mg Q4H PRN ORAL Mild Pain (Pain Scale 1-3) 04/19/20 20:45 05/19/20 20:44 Cefepime HCl 2 gm/ Dextrose 55 ml @ 110 mls/hr Q8H IVPB 04/20/20 14:00 04/27/20 13:59 Chlorhexidine Gluconate (Charity-Hex 2%) 1 applic BEFORE DINNER PRN TOPIC Diarrhea 04/19/20 20:45 07/18/20 20:44 Dextrose (Dextrose 50%) 25 ml Q30M PRN IV Hypoglycemia 04/20/20 11:30 07/19/20 11:29 Dextrose (Dextrose 50%) 50 ml Q30M PRN IV Hypoglycemia 04/20/20 11:30 07/19/20 11:29 Enoxaparin Sodium (Lovenox) 40 mg Q24H SUBQ 04/20/20 09:00 07/19/20 08:59 Insulin Aspart (NovoLOG) 6 units TIWM SUBQ 04/20/20 12:00 07/19/20 11:59 Insulin Detemir (Levemir) 18 units DAILY SUBQ 04/20/20 12:00 07/19/20 11:59 Lorazepam (Ativan 2mg/ml 1ml) 0.5 mg Q4H PRN IV For Anxiety 04/19/20 20:45 04/26/20 20:44 Pantoprazole (Protonix) 40 mg DAILY IV 04/20/20 09:00 05/20/20 08:59 Sodium Chloride 1,000 ml @ 50 mls/hr Q20H IV 04/19/20 21:45 05/19/20 21:44 04/19/20 23:55 Vancomycin HCl 300 ml @ 150 mls/hr Q12H IVPB 04/20/20 12:00 04/25/20 11:59 04/20/20 12:20 Vancomycin HCl (Vanco pharmacy to dose) 1 ea DAILY PRN MISC Per rx protocol 04/20/20 09:00 05/20/20 08:59 Zolpidem Tartrate (Ambien) 5 mg HSPRN PRN ORAL Insomnia 04/19/20 20:45 04/26/20 20:44 Objective Narrative Focused LLE Exam: Derm: Left Anterior leg ulceration noted. Negative purulent drainage. Minimal erythema and edema. Vasc: +1/4 DP/PT pulses. Neuro: SILT diminished. MSK: MS/ROM diminished. Assessment/Plan Diagnosis [place] I: A: Left Leg Ulceration DM Pneumonia B/L LE Edema P: - Pt seen and evaluated. - Discuss findings with patient. - labs and chart reviewed. - Left TIb/Fib XR pending. - Arterial U/S L/E pending. - Cont IV ABx. - Daily betadine dressing with DSD L leg, order submitted. - No acute surgical intervention required at this time. - Cont Tx per specialists. - Podiatry will cont to monitor. Tomasz Castaneda DPM Apr 20, 2020 15:38
[2020-04-20 16:00] VITALS: BP 124/93
--- NOTE | 2020-04-20 18:45 | Consultation ---
DATE OF CONSULTATION: 04/20/2020 ENDOCRINOLOGY CONSULTATION CONSULTING PHYSICIAN: Dav Costello MD HISTORY OF PRESENT ILLNESS: Patient is a 44-year-old male who presented to the hospital with wound on the leg, admitted with cellulitis. Glucose is out of control and lactic acid is positive. He has underlying history of schizophrenia. Endocrinology was consulted in order to assist in management of diabetes. PAST MEDICAL HISTORY: 1. Schizophrenia. 2. Diabetes. 3. CHF. PAST SURGICAL HISTORY: None. FAMILY HISTORY: Noncontributory. REVIEW OF SYSTEMS: As per HPI. LABORATORY DATA: Sodium 132, potassium 4.3, chloride 96, bicarb 25, anion gap 21, creatinine 1.4, glucose 378. Lactic acid 5.5. Urine tox is negative. CBC shows WBC of 13, hemoglobin 15, hematocrit 46, platelets of 331. PHYSICAL EXAMINATION: VITAL SIGNS: Blood pressure 117/83, heart rate 112, respiratory rate 21, temperature 98.1. HEENT: Pupils are equal and reactive to light. Sclerae nonicteric. NECK: No JVD. HEART: Regular. LUNGS: Clear. ABDOMEN: Positive bowel sounds. EXTREMITIES: Positive for edema. DIAGNOSES: 1. Diabetes, out of control. 2. Lactic acidosis. PLAN: 1. Continue to hold off metformin due to lactic acidosis. 2. Start Levemir 18 units daily. 3. Start NovoLog 6 units before each meal. 4. NovoLog sliding scale before meals and at bedtime. 5. Check hemoglobin A1c. 6. Further adjustment according to blood glucose values. Thank you, Dr. Camp, for the courtesy of this consultation. Dav Costello M.D. DR: ABDOULAYE JOB#: [id number] CC: THEA
[2020-04-20 20:00] VITALS: BP 120/85
--- NOTE | 2020-04-20 22:15 | Consultation ---
DATE OF CONSULTATION: 04/20/2020 CONSULTING PHYSICIAN: Suzanne Cortes ATTENDING PHYSICIAN: Atul Camp M.D. REASON FOR ADMISSION: Pneumonia, pleural effusion. HISTORY OF PRESENT ILLNESS: This is a 44-year-old male with history of schizophrenia, diabetes, CHF, who presented to the ED for evaluation of coughing and generalized weakness for a few days. The patient is a poor historian with cognitive delay, and much of the HPI was obtained from the ER note and his EMR. The patient denied chest pain, shortness of breath, fever, or chills. Patient also stated that he has some wounds on his legs. Denies any other associated symptoms. On evaluation, he is sitting in a chair, not in acute distress, with normal work of breathing on room air. Chest x-ray shows patchy opacities in the left mid and lower lung and right lower lung. Also, possible small left pleural effusion noted. Initial lab studies show mild leukocytosis, hyperglycemia. Urinalysis showed protein, glucose, ketones in urine. The patient was negative for COVID-19. The patient was given antibiotics, insulin. Patient is noncompliant with his home medications and required admission for further management and care. PAST MEDICAL HISTORY: Diabetes, CHF, schizophrenia. MEDICATIONS: Aspirin, benztropine, haloperidol, lisinopril, metformin, potassium, simvastatin, and spironolactone. ALLERGIES: No known allergies. FAMILY HISTORY: Unknown. PERSONAL/SOCIAL HISTORY: Denies smoking, alcohol use, or drug use. REVIEW OF SYSTEMS: Negative except mentioned in HPI. PHYSICAL EXAMINATION: VITAL SIGNS: Blood pressure 117/86, heart rate 97, respiratory rate 21, weight 110 kg, height 188 cm. GENERAL: No apparent distress, obese. HEENT: Head exam reveals that the head is normocephalic, atraumatic without deformity or unusual swelling. Pupils, PERRLA. There is no nystagmus, lid lag, or exophthalmos. Nasal mucosa is pink. Vision is normal. CHEST AND LUNGS: Reveals clear, normal, symmetrical breath sounds with no adventitious sounds. CARDIOVASCULAR: Reveals normal S1, S2 without murmurs, rubs, or clicks. ABDOMEN: Soft with no tenderness or organomegaly. RECTAL: Deferred. MUSCULOSKELETAL: There is no tenderness to palpation. SKIN: Ulcers to bilateral lower extremities noted. NEUROLOGICAL: Cranial nerves II through XII are intact. LABORATORY DATA: Lab testing shows WBC 13.3. Chemistries, blood glucose 368, lactic acid 1.1. Toxicology screen negative. Urinalysis shows 3+ protein, 4+ glucose, 3+ ketones, 1+ blood. IMPRESSION: 1. Diabetes mellitus. -on insulin per Dr. Costello. 2. Pleural effusion. -status post IV Lasix once in the ER. 3. Patchy opacities in lungs, likely pneumonia. -on cefepime and vancomycin empirically per ID. 4. DVT prophylaxis. -on Lovenox. 5. Leg ulcer. -on cefazolin and doxycycline empirically per ID. The care for this patient was discussed with my supervising physician. Time spent for this case was approximately 31 minutes. Mushtaq Morrison M.D. MORRO Cook DR: SHIRA JOB#: [id number] CC: THEA
[2020-04-21] VITALS: BP 126/87
[2020-04-21 04:00] VITALS: BP 124/89
[2020-04-21] MEDS: Cefepime HCl 2 GM in D5W 55 ML IVPB SCH (06:00)
[2020-04-21] MEDS: NovoLOG Insulin Flexpen SUBQ SCH ×4 (07:00→17:00)
--- NOTE | 2020-04-21 07:46 | General Progress Note ---
Subjective ROS Limited/Unobtainable: Yes Allergies: Coded Allergies: No Known Allergies (Unverified , 12/01/19) Subjective events noted interval notes reviewed glucose values are high - refused insulin Item Value Date Time Bedside Blood Glucose 350 mg/dl H 04/21/20 0630 Bedside Blood Glucose 397 mg/dl H 04/20/20 2100 Bedside Blood Glucose 329 mg/dl H 04/20/20 1632 Bedside Blood Glucose 368 mg/dl H 04/20/20 1239 Objective Last 24 Hour Vital Signs Date Time Temp Pulse Resp B/P (MAP) Pulse Ox O2 Delivery O2 Flow Rate FiO2 04/21/20 04:00 97.8 100 21 124/89 (101) 97 04/21/20 04:00 100 04/21/20 00:00 103 04/21/20 00:00 98.1 106 22 126/87 (100) 96 04/20/20 21:00 Room Air 04/20/20 20:00 97.6 104 22 120/85 (97) 97 04/20/20 20:00 114 04/20/20 16:00 114 04/20/20 16:00 97.5 112 21 124/93 (103) 96 04/20/20 12:51 114 04/20/20 12:00 99.0 97 21 117/86 (96) 95 04/20/20 09:08 Room Air 04/20/20 08:00 98.1 112 21 117/83 (94) 97 04/20/20 08:00 118 Intake and Output 04/20/20 04/21/20 19:00 07:00 Intake Total 1010 ml 210 ml Balance 1010 ml 210 ml Intake Oral 600 ml 210 ml IV Total 410 ml # Voids 5 2 Laboratory Tests 04/20/20 12:38: POC Whole Blood Glucose 368H 04/21/20 05:16: POC Whole Blood Glucose 350H Height (Feet): 6 Height (Inches): 2.00 Weight (Pounds): 243 General Appearance: no apparent distress Neck: normal alignment Cardiovascular: normal rate Respiratory/Chest: lungs clear Objective Current Medications Medications (Trade) Dose Ordered Sig/Mika Route PRN Reason Start Time Stop Time Status Last Admin Dose Admin Acetaminophen (Tylenol) 650 mg Q4H PRN ORAL Mild Pain (Pain Scale 1-3) 04/19/20 20:45 05/19/20 20:44 Cefepime HCl 2 gm/ Dextrose 55 ml @ 110 mls/hr Q8H IVPB 04/20/20 14:00 04/27/20 13:59 Chlorhexidine Gluconate (Charity-Hex 2%) 1 applic BEFORE DINNER PRN TOPIC Diarrhea 04/19/20 20:45 07/18/20 20:44 Dextrose (Dextrose 50%) 25 ml Q30M PRN IV Hypoglycemia 04/20/20 11:30 07/19/20 11:29 Dextrose (Dextrose 50%) 50 ml Q30M PRN IV Hypoglycemia 04/20/20 11:30 07/19/20 11:29 Enoxaparin Sodium (Lovenox) 40 mg Q24H SUBQ 04/20/20 09:00 07/19/20 08:59 Insulin Aspart (NovoLOG) 6 units TIWM SUBQ 04/20/20 12:00 07/19/20 11:59 Insulin Detemir (Levemir) 18 units DAILY SUBQ 04/20/20 12:00 07/19/20 11:59 Lorazepam (Ativan 2mg/ml 1ml) 0.5 mg Q4H PRN IV For Anxiety 04/19/20 20:45 04/26/20 20:44 Pantoprazole (Protonix) 40 mg DAILY IV 04/20/20 09:00 05/20/20 08:59 Sodium Chloride 1,000 ml @ 50 mls/hr Q20H IV 04/19/20 21:45 05/19/20 21:44 04/19/20 23:55 Vancomycin HCl 300 ml @ 150 mls/hr Q12H IVPB 04/20/20 12:00 04/25/20 11:59 04/20/20 12:20 Vancomycin HCl ([facility] pharmacy to dose) 1 ea DAILY PRN MISC Per rx protocol 04/20/20 09:00 05/20/20 08:59 Zolpidem Tartrate (Ambien) 5 mg HSPRN PRN ORAL Insomnia 04/19/20 20:45 04/26/20 20:44 Assessment/Plan Problem List: (1) Diabetes mellitus type 2 with complications, uncontrolled ICD Codes: E11.8 - Type 2 diabetes mellitus with unspecified complications; E11.65 - Type 2 diabetes mellitus with hyperglycemia SNOMED: 10497582, 029675229, [id number] (2) Schizophrenia ICD Codes: F20.9 - Schizophrenia, unspecified SNOMED: 99387303 Qualifiers: Qualified Codes: F20.9 - Schizophrenia, unspecified (3) Cellulitis and abscess of foot ICD Codes: L03.119 - Cellulitis of unspecified part of limb; L02.619 - Cutaneous abscess of unspecified foot SNOMED: 566155608, 276812995, 476982498 Status: stable Assessment/Plan: continue with scheduled Levemir and Novolog orders consider psych consultation Dav Costello MD Apr 21, 2020 07:46
[2020-04-21 08:00] VITALS: BP 137/100
--- NOTE | 2020-04-21 08:27 | Consultation ---
History of Present Illness General Chief Complaint: Generalized Weakness Referring physician: Nick Escamilla Reason for Consultation: Left leg wound and cellulitis Present Illness HPI Patient is a 44-year-old male with history of psychiatric disorder, uncontrolled DMII, leg ulceration, who presents with swelling of b/l LE and leg pain. Pt states he's been on a water pill for leg swelling that began about 6 weeks ago. Denies chest pain, orthopnea, prior [place] or CHF, he declines treatment for his heart and won't allow echocardiogram to be done. Echo done last admission 12/01/19 shows severe reduction in LV function EF 25%. In the ER, EKG shows sinus tachycardia with PACs and several beats of NSVT. WBCs elevated 13. BNP 414, troponin negative. CXR patchy infiltrates and possible pleural effusion. Allergies: Coded Allergies: No Known Allergies (Unverified , 12/01/19) Medication History Scheduled Aspirin* (Aspir 81*), 81 MG ORAL DAILY, (Reported) Benztropine Mesylate* (Benztropine Mesylate*), 1 MG ORAL BID, (Reported) Haloperidol* (Haldol*), 4 MG ORAL BID, (Reported) Lisinopril* (Lisinopril*), 20 MG ORAL DAILY, (Reported) Metformin Hcl* (Metformin Hcl*), 500 MG ORAL TWICE A DAY, (Reported) Potassium Chloride (Potassium Chloride), 20 MEQ ORAL DAILY, (Reported) Potassium Chloride* (K-Dur*), 20 MEQ ORAL DAILY, (Reported) Simvastatin (Zocor), 20 MG ORAL BEDTIME, (Reported) Spironolactone* (Spironolactone*), 25 MG ORAL DAILY, (Reported) Patient History Limited by: medical condition History Provided By: Patient, EMS Healthcare decision maker Resuscitation status Advanced Directive on File Review of Systems Constitutional: Reports: see HPI Eye: Reports: no symptoms ENT: Reports: no symptoms Respiratory: Reports: shortness of breath Cardiovascular: Reports: edema; Denies: no symptoms Skin: Reports: lesions Psychiatric: Reports: prior hx Physical Exam General Appearance: agitated HEENT: normocephalic, atraumatic Neck: supple Respiratory/Chest: no accessory muscle use, crackles/rales Cardiovascular/Chest: no JVD, tachycardia Abdomen: soft Extremities: moderate edema, other Skin Exam: warm/dry Neurologic: disoriented Last 24 Hour Vital Signs Date Time Temp Pulse Resp B/P (MAP) Pulse Ox O2 Delivery O2 Flow Rate FiO2 04/21/20 04:00 97.8 100 21 124/89 (101) 97 04/21/20 04:00 100 04/21/20 00:00 103 04/21/20 00:00 98.1 106 22 126/87 (100) 96 04/20/20 21:00 Room Air 04/20/20 20:00 97.6 104 22 120/85 (97) 97 04/20/20 20:00 114 04/20/20 16:00 114 04/20/20 16:00 97.5 112 21 124/93 (103) 96 04/20/20 12:51 114 04/20/20 12:00 99.0 97 21 117/86 (96) 95 04/20/20 09:08 Room Air Intake and Output 04/20/20 04/21/20 19:00 07:00 Intake Total 1010 ml 210 ml Balance 1010 ml 210 ml Intake Oral 600 ml 210 ml IV Total 410 ml # Voids 5 2 Laboratory Tests Test 04/20/20 12:38 04/21/20 05:16 POC Whole Blood Glucose 368 MG/DL (74-106) H 350 MG/DL (74-106) H Height (Feet): 6 Height (Inches): 2.00 Weight (Pounds): 243 Medications Current Medications Medications (Trade) Dose Ordered Sig/Mika Route PRN Reason Start Time Stop Time Status Last Admin Dose Admin Acetaminophen (Tylenol) 650 mg Q4H PRN ORAL Mild Pain (Pain Scale 1-3) 04/19/20 20:45 05/19/20 20:44 Cefepime HCl 2 gm/ Dextrose 55 ml @ 110 mls/hr Q8H IVPB 04/20/20 14:00 04/27/20 13:59 Chlorhexidine Gluconate (Charity-Hex 2%) 1 applic BEFORE DINNER PRN TOPIC Diarrhea 04/19/20 20:45 07/18/20 20:44 Dextrose (Dextrose 50%) 25 ml Q30M PRN IV Hypoglycemia 04/20/20 11:30 07/19/20 11:29 Dextrose (Dextrose 50%) 50 ml Q30M PRN IV Hypoglycemia 04/20/20 11:30 07/19/20 11:29 Enoxaparin Sodium (Lovenox) 40 mg Q24H SUBQ 04/20/20 09:00 07/19/20 08:59 Insulin Aspart (NovoLOG) 6 units TIWM SUBQ 04/20/20 12:00 07/19/20 11:59 Insulin Detemir (Levemir) 18 units DAILY SUBQ 04/20/20 12:00 07/19/20 11:59 Lorazepam (Ativan 2mg/ml 1ml) 0.5 mg Q4H PRN IV For Anxiety 04/19/20 20:45 04/26/20 20:44 Pantoprazole (Protonix) 40 mg DAILY IV 04/20/20 09:00 05/20/20 08:59 Sodium Chloride 1,000 ml @ 50 mls/hr Q20H IV 04/19/20 21:45 05/19/20 21:44 04/19/20 23:55 Vancomycin HCl 300 ml @ 150 mls/hr Q12H IVPB 04/20/20 12:00 04/25/20 11:59 04/20/20 12:20 Vancomycin HCl ([facility] pharmacy to dose) 1 ea DAILY PRN MISC Per rx protocol 04/20/20 09:00 05/20/20 08:59 Zolpidem Tartrate (Ambien) 5 mg HSPRN PRN ORAL Insomnia 04/19/20 20:45 04/26/20 20:44 Assessment/Plan Assessment/Plan: 1. Non-healing leg ulcers b/l 2. CHF acute on chronic systolic on diastolic HF with reduced EF 25% Lasix for diuresis BNP elevated 3. Cellulitis and leukocytosis 2/2 leg ulcers 4. DMII 5. Psychiatric disorder 6. BRIA on CKD Pt states "there's nothing wrong with my heart". GDMT for heart failure, will start Bb for rate control, lasix as tolerated, pt refuses repeat echo. Will treat medically, further recs to follow. Lauren Dong PA-C Apr 21, 2020 08:27
[2020-04-21] MEDS: Levemir Flexpen SUBQ SCH (09:00)
[2020-04-21] MEDS: Pantoprazole Inj IV SCH (09:00)
[2020-04-21] MEDS: Enoxaparin 40mg Inj SUBQ SCH (09:00)
--- NOTE | 2020-04-21 11:07 | General Progress Note ---
Subjective Allergies: Coded Allergies: No Known Allergies (Unverified , 12/01/19) Objective Last 24 Hour Vital Signs Date Time Temp Pulse Resp B/P (MAP) Pulse Ox O2 Delivery O2 Flow Rate FiO2 04/21/20 09:00 Room Air 04/21/20 08:00 110 04/21/20 08:00 98.1 114 20 137/100 (112) 98 04/21/20 04:00 97.8 100 21 124/89 (101) 97 04/21/20 04:00 100 04/21/20 00:00 103 04/21/20 00:00 98.1 106 22 126/87 (100) 96 04/20/20 21:00 Room Air 04/20/20 20:00 97.6 104 22 120/85 (97) 97 04/20/20 20:00 114 04/20/20 16:00 114 04/20/20 16:00 97.5 112 21 124/93 (103) 96 04/20/20 12:51 114 04/20/20 12:00 99.0 97 21 117/86 (96) 95 Intake and Output 04/20/20 04/21/20 19:00 07:00 Intake Total 1010 ml 210 ml Balance 1010 ml 210 ml Intake Oral 600 ml 210 ml IV Total 410 ml # Voids 5 2 Laboratory Tests 04/20/20 12:38: POC Whole Blood Glucose 368H 04/21/20 05:16: POC Whole Blood Glucose 350H Height (Feet): 6 Height (Inches): 2.00 Weight (Pounds): 243 Assessment/Plan Status: stable Assessment/Plan: S, O;: I am ok deneis chest pain, has diffuse weakness PHYSICAL EXAMINATION:HEAD AND NECK: Atraumatic and normocephalic. CHEST: Diffuse bronchial breathing sounds. HEART: S1, S2. Regular rate and rhythm. ABDOMEN: Soft. No organomegaly.MUSCULOSKELETAL: Positive for the edema in the lower extremity. NEUROLOGIC: Patient is awake, alert, oriented x3. Meds: reviewed and reconciled ASSESSMENT AND PLAN: 1. Community-acquired pneumonia. 2. Renal failure, age indeterminate. 3. Abnormal liver function tests. 4. Lower extremity edema, possibility of heart failure cannot be excluded. 5. Diabetes type 2. 6. GI and DVT prophylaxes. 7. Sepsis secondary to #1. PLAN OF CARE: order an Echo cardiology note reviewed Atul Camp MD Apr 21, 2020 11:07
[2020-04-21] MEDS: Vancomycin 1.5gm/300ml Premix IVPB SCH ×2 (11:37)
[2020-04-21 12:00] VITALS: BP 128/88
--- NOTE | 2020-04-21 14:44 | Infectious Diseases Prog Note ---
Assessment/Plan Problems: (1) Pneumonia Assessment & Plan: with B/L patchy infiltrates and negative rapid test for COVID , has been refusing IV cefepime and vancomycin , aspiration precaution. we will switch IV antibiotics to oral Levaquin to cover for both pneumonia and wound infection (2) Open leg wound Assessment & Plan: with gram-negative rods, we will start oral Levaquin since refusing IV, wound care consult (3) Cellulitis Assessment & Plan: will start cefazoline and doxycycline empirically , keep leg elevated all the time (4) CHF (congestive heart failure) Assessment & Plan: continue cardiac meds with diuretics (5) Diabetes mellitus type 2 with complications, uncontrolled Assessment & Plan: tight glycemic control to keep blood glucose between 100-140 Subjective Constitutional: Reports: no symptoms HEENT: Reports: no symptoms Respiratory: Reports: no symptoms Breasts: Reports: no symptoms Cardiovascular: Reports: no symptoms Gastrointestinal/Abdominal: Reports: no symptoms Genitourinary: Reports: no symptoms Neurologic: Reports: no symptoms Psychiatric: Reports: no symptoms Skin: Reports: no symptoms Endocrine: Reports: no symptoms Hematologic: Reports: no symptoms Musculoskeletal: Reports: no symptoms Allergies: Coded Allergies: No Known Allergies (Unverified , 12/01/19) he has been refusing medications IV line and lab drawn so far Objective Last 24 Hour Vital Signs Date Time Temp Pulse Resp B/P (MAP) Pulse Ox O2 Delivery O2 Flow Rate FiO2 04/21/20 09:00 Room Air 04/21/20 08:00 110 04/21/20 08:00 98.1 114 20 137/100 (112) 98 04/21/20 04:00 97.8 100 21 124/89 (101) 97 04/21/20 04:00 100 04/21/20 00:00 103 04/21/20 00:00 98.1 106 22 126/87 (100) 96 04/20/20 21:00 Room Air 04/20/20 20:00 97.6 104 22 120/85 (97) 97 04/20/20 20:00 114 04/20/20 16:00 114 04/20/20 16:00 97.5 112 21 124/93 (103) 96 Height (Feet): 6 Height (Inches): 2.00 Weight (Pounds): 243 General Appearance: WD/WN, no acute distress HEENT: normocephalic, atraumatic, anicteric, mucous membranes moist, PERRL Respiratory/Chest: chest wall non-tender, lungs clear, normal breath sounds, no respiratory distress, no accessory muscle use Cardiovascular: normal peripheral pulses, normal rate, regular rhythm, no gallop/murmur, no JVD Abdomen: normal bowel sounds, soft, non tender, no organomegaly, non distended, no mass, no scars Genitourinary: normal external genitalia Extremities: no cyanosis, no clubbing Skin: no rash, no lesions, ulcers Neurologic/Psychiatric: planer stone II-XII grossly normal, alert, responsive Lymphatic: no neck adenopathy, no groin adenopathy Musculoskeletal: normal muscle bulk, no effusion Microbiology Date/Time Source Procedure Growth Status 04/19/20 22:01 Wound Gram Stain - Final Resulted 04/19/20 22:01 Wound Culture - Preliminary Gram Negative Bacillus 1 Resulted 04/19/20 12:35 Blood Blood Culture - Preliminary NO GROWTH AFTER 24 HOURS Resulted 04/19/20 12:35 Blood Blood Culture - Preliminary NO GROWTH AFTER 24 HOURS Resulted 04/19/20 11:20 Nasopharynx SARS-CoV-2 RdRp Gene Assay - Final Complete Laboratory Tests Test 04/21/20 05:16 04/21/20 11:27 POC Whole Blood Glucose 350 MG/DL (74-106) H 323 MG/DL (74-106) H Current Medications Medications (Trade) Dose Ordered Sig/Mika Route PRN Reason Start Time Stop Time Status Last Admin Dose Admin Acetaminophen (Tylenol) 650 mg Q4H PRN ORAL Mild Pain (Pain Scale 1-3) 04/19/20 20:45 05/19/20 20:44 Carvedilol (Coreg) 3.125 mg EVERY 12 HOURS ORAL 04/21/20 21:00 05/21/20 20:59 Cefepime HCl 2 gm/ Dextrose 55 ml @ 110 mls/hr Q8H IVPB 04/20/20 14:00 04/27/20 13:59 Chlorhexidine Gluconate (Charity-Hex 2%) 1 applic BEFORE DINNER PRN TOPIC Diarrhea 04/19/20 20:45 07/18/20 20:44 Dextrose (Dextrose 50%) 25 ml Q30M PRN IV Hypoglycemia 04/20/20 11:30 07/19/20 11:29 Dextrose (Dextrose 50%) 50 ml Q30M PRN IV Hypoglycemia 04/20/20 11:30 07/19/20 11:29 Enoxaparin Sodium (Lovenox) 40 mg Q24H SUBQ 04/20/20 09:00 07/19/20 08:59 Insulin Aspart (NovoLOG) 6 units TIWM SUBQ 04/20/20 12:00 07/19/20 11:59 Insulin Detemir (Levemir) 18 units DAILY SUBQ 04/20/20 12:00 07/19/20 11:59 Lorazepam (Ativan 2mg/ml 1ml) 0.5 mg Q4H PRN IV For Anxiety 04/19/20 20:45 04/26/20 20:44 Pantoprazole (Protonix) 40 mg DAILY IV 04/20/20 09:00 05/20/20 08:59 Sodium Chloride 1,000 ml @ 50 mls/hr Q20H IV 04/19/20 21:45 05/19/20 21:44 04/19/20 23:55 Vancomycin HCl 300 ml @ 150 mls/hr Q12H IVPB 04/20/20 12:00 04/25/20 11:59 04/20/20 12:20 [facility] 1 ea DAILY PRN MISC Per rx protocol 04/20/20 09:00 05/20/20 08:59 Zolpidem Tartrate (Ambien) 5 mg HSPRN PRN ORAL Insomnia 04/19/20 20:45 04/26/20 20:44 Marilou Stanton M.D. Apr 21, 2020 14:44
[2020-04-21] MEDS: Levofloxacin 750mg tab ORAL SCH (14:45)
--- NOTE | 2020-04-21 15:02 | Pulmonology Progress Note ---
Subjective ROS Limited/Unobtainable: Yes Interval Events: pt refusing insulin and IV abx Constitutional: Reports: no symptoms Respiratory: Reports: dry cough Gastrointestinal/Abdominal: Reports: no symptoms Psychiatric: Reports: no symptoms Skin: Reports: no symptoms Musculoskeletal: Reports: no symptoms Allergies: Coded Allergies: No Known Allergies (Unverified , 12/01/19) Objective Last 24 Hour Vital Signs Date Time Temp Pulse Resp B/P (MAP) Pulse Ox O2 Delivery O2 Flow Rate FiO2 04/21/20 09:00 Room Air 04/21/20 08:00 110 04/21/20 08:00 98.1 114 20 137/100 (112) 98 04/21/20 04:00 97.8 100 21 124/89 (101) 97 04/21/20 04:00 100 04/21/20 00:00 103 04/21/20 00:00 98.1 106 22 126/87 (100) 96 04/20/20 21:00 Room Air 04/20/20 20:00 97.6 104 22 120/85 (97) 97 04/20/20 20:00 114 04/20/20 16:00 114 04/20/20 16:00 97.5 112 21 124/93 (103) 96 Intake and Output 04/20/20 04/21/20 19:00 07:00 Intake Total 1010 ml 210 ml Balance 1010 ml 210 ml Intake Oral 600 ml 210 ml IV Total 410 ml # Voids 5 2 Objective 04/21 NAD; pt refusing IV abx, and insulin General Appearance: WD/WN, no acute distress HEENT: normocephalic, atraumatic Respiratory: lungs clear Cardiovascular: regular rhythm, tachycardia Abdomen: soft, non tender Skin: ulcers, other - b/l LE cellulitis Neurologic: alert Microbiology Date/Time Source Procedure Growth Status 04/19/20 22:01 Wound Gram Stain - Final Resulted 04/19/20 22:01 Wound Culture - Preliminary Gram Negative Bacillus 1 Resulted 04/19/20 12:35 Blood Blood Culture - Preliminary NO GROWTH AFTER 24 HOURS Resulted 04/19/20 12:35 Blood Blood Culture - Preliminary NO GROWTH AFTER 24 HOURS Resulted 04/19/20 11:20 Nasopharynx SARS-CoV-2 RdRp Gene Assay - Final Complete Laboratory Tests 04/21/20 05:16: POC Whole Blood Glucose 350H 04/21/20 11:27: POC Whole Blood Glucose 323H Current Medications Medications (Trade) Dose Ordered Sig/Mika Route PRN Reason Start Time Stop Time Status Last Admin Dose Admin Acetaminophen (Tylenol) 650 mg Q4H PRN ORAL Mild Pain (Pain Scale 1-3) 04/19/20 20:45 05/19/20 20:44 Carvedilol (Coreg) 3.125 mg EVERY 12 HOURS ORAL 04/21/20 21:00 05/21/20 20:59 Chlorhexidine Gluconate (Charity-Hex 2%) 1 applic BEFORE DINNER PRN TOPIC Diarrhea 04/19/20 20:45 07/18/20 20:44 Dextrose (Dextrose 50%) 25 ml Q30M PRN IV Hypoglycemia 04/20/20 11:30 07/19/20 11:29 Dextrose (Dextrose 50%) 50 ml Q30M PRN IV Hypoglycemia 04/20/20 11:30 07/19/20 11:29 Enoxaparin Sodium (Lovenox) 40 mg Q24H SUBQ 04/20/20 09:00 07/19/20 08:59 Insulin Aspart (NovoLOG) 6 units TIWM SUBQ 04/20/20 12:00 07/19/20 11:59 Insulin Detemir (Levemir) 18 units DAILY SUBQ 04/20/20 12:00 07/19/20 11:59 Levofloxacin (Levaquin) 750 mg DAILY ORAL 04/21/20 14:45 04/28/20 14:44 Lorazepam (Ativan 2mg/ml 1ml) 0.5 mg Q4H PRN IV For Anxiety 04/19/20 20:45 04/26/20 20:44 Pantoprazole (Protonix) 40 mg DAILY IV 04/20/20 09:00 05/20/20 08:59 Sodium Chloride 1,000 ml @ 50 mls/hr Q20H IV 04/19/20 21:45 05/19/20 21:44 04/19/20 23:55 Zolpidem Tartrate (Ambien) 5 mg HSPRN PRN ORAL Insomnia 04/19/20 20:45 04/26/20 20:44 Assessment/Plan Assessment/Plan 1. Diabetes mellitus, not well controlled -on insulin per Dr. Costello. 2. Pleural effusion. - has small left pleural effusion - Bilateral patchy densities, suspect pneumonia - status post IV Lasix once in the ER. - currently saturating well on RA - 2D echo result pending - provide supplemental oxygen as needed - cont monitor saO2 3. Patchy opacities in lungs, likely pneumonia. -Abx per ID 4. DVT prophylaxis. -on Lovenox. 5. Leg ulcer. -cefazolin and doxycycline empirically - will be switched to oral levaquin per ID The care for this patient was discussed with my supervising physician. Time spent for this case was approximately 31 minutes. Steve Jeffrey Apr 21, 2020 15:02 Mushtaq Morrison MD Apr 21, 2020 17:40
[2020-04-21 16:00] VITALS: BP 124/87
[2020-04-21 20:00] VITALS: BP 132/91
--- NOTE | 2020-04-21 22:44 | Psychiatry Consultation ---
Psychiatry Consultation Psychiatry Consultation Chief Complaint: Generalized Weakness Allergies: Coded Allergies: No Known Allergies (Unverified , 12/01/19) Medication History Scheduled Aspirin* (Aspir 81*), 81 MG ORAL DAILY, (Reported) Benztropine Mesylate* (Benztropine Mesylate*), 1 MG ORAL BID, (Reported) Haloperidol* (Haldol*), 4 MG ORAL BID, (Reported) Lisinopril* (Lisinopril*), 20 MG ORAL DAILY, (Reported) Metformin Hcl* (Metformin Hcl*), 500 MG ORAL TWICE A DAY, (Reported) Potassium Chloride (Potassium Chloride), 20 MEQ ORAL DAILY, (Reported) Potassium Chloride* (K-Dur*), 20 MEQ ORAL DAILY, (Reported) Simvastatin (Zocor), 20 MG ORAL BEDTIME, (Reported) Spironolactone* (Spironolactone*), 25 MG ORAL DAILY, (Reported) Objective Data Height (Feet): 6 Height (Inches): 2.00 Weight (Pounds): 243 Kane Rose MD Apr 21, 2020 22:44
[2020-04-21] MEDS ORDERED: LORazepam 0.5mg tab ORAL PRN (22:45)
[2020-04-21] MEDS ORDERED: LORazepam 1mg tab ORAL PRN (23:00)
[2020-04-22] VITALS: BP 131/86
[2020-04-22 04:00] VITALS: BP 135/90
--- NOTE | 2020-04-22 06:37 | General Progress Note ---
Subjective Allergies: Coded Allergies: No Known Allergies (Unverified , 12/01/19) Subjective events noted interval notes reviewed glucose values are high - he continues to refuse medications Item Value Date Time Bedside Blood Glucose 387 mg/dl H 04/21/20 2100 Bedside Blood Glucose 387 mg/dl H 04/21/20 1700 Bedside Blood Glucose 323 mg/dl H 04/21/20 1130 Bedside Blood Glucose 350 mg/dl H 04/21/20 0630 Objective Last 24 Hour Vital Signs Date Time Temp Pulse Resp B/P (MAP) Pulse Ox O2 Delivery O2 Flow Rate FiO2 04/22/20 04:00 110 04/22/20 04:00 97.8 102 20 135/90 (105) 96 04/22/20 00:00 109 04/22/20 00:00 98.0 103 20 131/86 (101) 95 04/21/20 21:00 Room Air 04/21/20 21:00 107 132/91 04/21/20 20:00 97.9 107 20 132/91 (105) 96 04/21/20 20:00 116 04/21/20 16:00 120 04/21/20 16:00 98.1 110 19 124/87 (99) 98 04/21/20 12:00 116 04/21/20 12:00 98.0 116 19 128/88 (101) 97 04/21/20 09:00 Room Air 04/21/20 08:00 110 04/21/20 08:00 98.1 114 20 137/100 (112) 98 Intake and Output 04/21/20 04/22/20 19:00 07:00 Intake Total 360 ml Balance 360 ml Intake Oral 360 ml # Voids 4 # Bowel Movements 1 Laboratory Tests 04/21/20 11:27: POC Whole Blood Glucose 323H Height (Feet): 6 Height (Inches): 2.00 Weight (Pounds): 243 General Appearance: no apparent distress Neck: normal alignment Cardiovascular: normal rate Abdomen: normal bowel sounds Objective Current Medications Medications (Trade) Dose Ordered Sig/Mika Route PRN Reason Start Time Stop Time Status Last Admin Dose Admin Acetaminophen (Tylenol) 650 mg Q4H PRN ORAL Mild Pain (Pain Scale 1-3) 04/19/20 20:45 05/19/20 20:44 Carvedilol (Coreg) 3.125 mg EVERY 12 HOURS ORAL 04/21/20 21:00 05/21/20 20:59 Chlorhexidine Gluconate (Charity-Hex 2%) 1 applic BEFORE DINNER PRN TOPIC Diarrhea 04/19/20 20:45 07/18/20 20:44 Dextrose (Dextrose 50%) 25 ml Q30M PRN IV Hypoglycemia 04/20/20 11:30 07/19/20 11:29 Dextrose (Dextrose 50%) 50 ml Q30M PRN IV Hypoglycemia 04/20/20 11:30 07/19/20 11:29 Enoxaparin Sodium (Lovenox) 40 mg Q24H SUBQ 04/20/20 09:00 07/19/20 08:59 Folic Acid (Folate) 1 mg DAILY ORAL 04/22/20 09:00 05/22/20 08:59 Insulin Aspart (NovoLOG) 6 units TIWM SUBQ 04/20/20 12:00 07/19/20 11:59 Insulin Detemir (Levemir) 18 units DAILY SUBQ 04/20/20 12:00 07/19/20 11:59 Levofloxacin (Levaquin) 750 mg DAILY ORAL 04/21/20 14:45 04/28/20 14:44 Lorazepam (Ativan) 2 mg Q6H PRN ORAL For Anxiety 04/21/20 23:00 04/28/20 22:59 Pantoprazole (Protonix) 40 mg DAILY IV 04/20/20 09:00 05/20/20 08:59 Sodium Chloride 1,000 ml @ 50 mls/hr Q20H IV 04/19/20 21:45 05/19/20 21:44 04/19/20 23:55 Thiamine HCl (Vitamin B1) 100 mg DAILY ORAL 04/22/20 09:00 05/22/20 08:59 Zolpidem Tartrate (Ambien) 5 mg HSPRN PRN ORAL Insomnia 04/19/20 20:45 04/26/20 20:44 Assessment/Plan Problem List: (1) Diabetes mellitus type 2 with complications, uncontrolled ICD Codes: E11.8 - Type 2 diabetes mellitus with unspecified complications; E11.65 - Type 2 diabetes mellitus with hyperglycemia SNOMED: 54380354, 888337647, 422034170 (2) Schizophrenia ICD Codes: F20.9 - Schizophrenia, unspecified SNOMED: 87504879 Qualifiers: Qualified Codes: F20.9 - Schizophrenia, unspecified (3) Cellulitis and abscess of foot ICD Codes: L03.119 - Cellulitis of unspecified part of limb; L02.619 - Cutaneous abscess of unspecified foot SNOMED: 460719804, 646071867, 361142434 Status: stable Assessment/Plan: continue with scheduled Levemir and Novolog orders consider psych consultation Dav Costello MD Apr 22, 2020 06:37
[2020-04-22] MEDS: NovoLOG Insulin Flexpen SUBQ SCH ×3 (06:43→17:00)
[2020-04-22 08:38] VITALS: BP 132/96
[2020-04-22] MEDS: Pantoprazole Inj IV SCH (08:50)
[2020-04-22] MEDS: Levemir Flexpen SUBQ SCH (08:51)
[2020-04-22] MEDS: Levofloxacin 750mg tab ORAL SCH (08:51)
[2020-04-22] MEDS: Enoxaparin 40mg Inj SUBQ SCH (08:51)
[2020-04-22] MEDS: Thiamine 100mg tab ORAL SCH (08:51)
--- NOTE | 2020-04-22 11:12 | General Progress Note ---
Subjective Allergies: Coded Allergies: No Known Allergies (Unverified , 12/01/19) Objective Last 24 Hour Vital Signs Date Time Temp Pulse Resp B/P (MAP) Pulse Ox O2 Delivery O2 Flow Rate FiO2 04/22/20 09:45 Room Air 04/22/20 08:50 121 132/96 04/22/20 08:38 98.1 121 20 132/96 (108) 97 04/22/20 08:00 120 04/22/20 04:00 110 04/22/20 04:00 97.8 102 20 135/90 (105) 96 04/22/20 00:00 109 04/22/20 00:00 98.0 103 20 131/86 (101) 95 04/21/20 21:00 Room Air 04/21/20 21:00 107 132/91 04/21/20 20:00 97.9 107 20 132/91 (105) 96 04/21/20 20:00 116 04/21/20 16:00 120 04/21/20 16:00 98.1 110 19 124/87 (99) 98 04/21/20 12:00 116 04/21/20 12:00 98.0 116 19 128/88 (101) 97 Intake and Output 04/21/20 04/22/20 19:00 07:00 Intake Total 360 ml Balance 360 ml Intake Oral 360 ml # Voids 4 5 # Bowel Movements 1 Laboratory Tests 04/21/20 11:27: POC Whole Blood Glucose 323H Height (Feet): 6 Height (Inches): 2.00 Weight (Pounds): 243 Assessment/Plan Status: stable Assessment/Plan: S, O;: I am ok deneis chest pain, has diffuse weakness PHYSICAL EXAMINATION:HEAD AND NECK: Atraumatic and normocephalic. CHEST: Diffuse bronchial breathing sounds. HEART: S1, S2. Regular rate and rhythm. ABDOMEN: Soft. No organomegaly.MUSCULOSKELETAL: Positive for the edema in the lower extremity. NEUROLOGIC: Patient is awake, alert, oriented x3. Meds: reviewed and reconciled ASSESSMENT AND PLAN: 1. Community-acquired pneumonia/ edema 2. Renal failure, age indeterminate. 3. Abnormal liver function tests. 4. Lower extremity edema, possibility of heart failure cannot be excluded. 5. Diabetes type 2. 6. GI and DVT prophylaxes. 7. Sepsis secondary to #1. 8. DM 9. Refusal of medical care PLAN OF CARE: order an Echo cardiology note reviewed Limited treatment secondary to refusal of care otherwise reasonable medically stable for outpatient followup Atul Camp MD Apr 22, 2020 11:12
[2020-04-22 12:00] VITALS: BP 125/93
--- NOTE | 2020-04-22 14:00 | Pulmonology Progress Note ---
Subjective ROS Limited/Unobtainable: Yes Interval Events: pt refusing care Constitutional: Reports: no symptoms Respiratory: Reports: dry cough Gastrointestinal/Abdominal: Reports: no symptoms Psychiatric: Reports: no symptoms Skin: Reports: no symptoms Musculoskeletal: Reports: no symptoms Allergies: Coded Allergies: No Known Allergies (Unverified , 12/01/19) Objective Last 24 Hour Vital Signs Date Time Temp Pulse Resp B/P (MAP) Pulse Ox O2 Delivery O2 Flow Rate FiO2 04/22/20 09:45 Room Air 04/22/20 08:50 121 132/96 04/22/20 08:38 98.1 121 20 132/96 (108) 97 04/22/20 08:00 120 04/22/20 04:00 110 04/22/20 04:00 97.8 102 20 135/90 (105) 96 04/22/20 00:00 109 04/22/20 00:00 98.0 103 20 131/86 (101) 95 04/21/20 21:00 Room Air 04/21/20 21:00 107 132/91 04/21/20 20:00 97.9 107 20 132/91 (105) 96 04/21/20 20:00 116 04/21/20 16:00 120 04/21/20 16:00 98.1 110 19 124/87 (99) 98 Intake and Output 04/21/20 04/22/20 18:59 06:59 Intake Total 360 ml Balance 360 ml Intake Oral 360 ml # Voids 4 5 # Bowel Movements 1 Objective 04/22 pt refusing care; NAD 04/21 NAD; pt refusing IV abx, and insulin General Appearance: WD/WN, no acute distress HEENT: normocephalic, atraumatic Respiratory: lungs clear Cardiovascular: regular rhythm, tachycardia Abdomen: soft, non tender Skin: ulcers, other - b/l LE cellulitis Neurologic: alert Microbiology Date/Time Source Procedure Growth Status 04/19/20 22:01 Wound Gram Stain - Final Complete 04/19/20 22:01 Wound Culture - Final Klebsiella Pneumoniae Usual Skin Beatriz Complete Laboratory Tests 04/22/20 12:06: POC Whole Blood Glucose [Pending] Current Medications Medications (Trade) Dose Ordered Sig/Mika Route PRN Reason Start Time Stop Time Status Last Admin Dose Admin Acetaminophen (Tylenol) 650 mg Q4H PRN ORAL Mild Pain (Pain Scale 1-3) 04/19/20 20:45 05/19/20 20:44 Carvedilol (Coreg) 3.125 mg EVERY 12 HOURS ORAL 04/21/20 21:00 05/21/20 20:59 Chlorhexidine Gluconate (Charity-Hex 2%) 1 applic BEFORE DINNER PRN TOPIC Diarrhea 04/19/20 20:45 07/18/20 20:44 Dextrose (Dextrose 50%) 25 ml Q30M PRN IV Hypoglycemia 04/20/20 11:30 07/19/20 11:29 Dextrose (Dextrose 50%) 50 ml Q30M PRN IV Hypoglycemia 04/20/20 11:30 07/19/20 11:29 Enoxaparin Sodium (Lovenox) 40 mg Q24H SUBQ 04/20/20 09:00 07/19/20 08:59 Folic Acid (Folate) 1 mg DAILY ORAL 04/22/20 09:00 05/22/20 08:59 Insulin Aspart (NovoLOG) 6 units TIWM SUBQ 04/20/20 12:00 07/19/20 11:59 Insulin Detemir (Levemir) 18 units DAILY SUBQ 04/20/20 12:00 07/19/20 11:59 Levofloxacin (Levaquin) 750 mg DAILY ORAL 04/21/20 14:45 04/28/20 14:44 Lorazepam (Ativan) 2 mg Q6H PRN ORAL For Anxiety 04/21/20 23:00 04/28/20 22:59 Pantoprazole (Protonix) 40 mg DAILY IV 04/20/20 09:00 05/20/20 08:59 Sodium Chloride 1,000 ml @ 50 mls/hr Q20H IV 04/19/20 21:45 05/19/20 21:44 04/19/20 23:55 Thiamine HCl (Vitamin B1) 100 mg DAILY ORAL 04/22/20 09:00 05/22/20 08:59 Zolpidem Tartrate (Ambien) 5 mg HSPRN PRN ORAL Insomnia 04/19/20 20:45 04/26/20 20:44 Assessment/Plan Assessment/Plan 1. Diabetes mellitus, not well controlled -on insulin per Dr. Costello. 2. Pleural effusion. - has small left pleural effusion - Bilateral patchy densities, suspect pneumonia - status post IV Lasix once in the ER. - currently saturating well on RA - 2D echo shows LV EF 25-30% - provide supplemental oxygen as needed - cont monitor saO2 3. Patchy opacities in lungs, likely pneumonia. -Abx per ID 4. DVT prophylaxis. -on Lovenox. 5. Leg ulcer. -cefazolin and doxycycline empirically - will be switched to oral levaquin per ID 6. Refusal of care The care for this patient was discussed with my supervising physician. Time spent for this case was approximately 31 minutes. Steve Jeffrey Apr 22, 2020 14:00 Mushtaq Morrison MD Apr 22, 2020 15:13
[2020-04-22] MEDS: Betadine 4oz Bottle TOPIC SCH (15:01)
--- NOTE | 2020-04-22 16:21 | Infectious Diseases Prog Note ---
Assessment/Plan Problems: (1) Pneumonia Assessment & Plan: with B/L patchy infiltrates and negative rapid test for COVID , has been refusing IV cefepime and vancomycin , aspiration precaution. we will continue oral Levaquin to cover for both pneumonia and wound infection for 7 days if patient agrees to take it (2) Open leg wound Assessment & Plan: with gram-negative rods, we will start oral Levaquin since refusing IV, wound care consult (3) Cellulitis Assessment & Plan: will start cefazoline and doxycycline empirically , keep leg elevated all the time (4) CHF (congestive heart failure) Assessment & Plan: continue cardiac meds with diuretics (5) Diabetes mellitus type 2 with complications, uncontrolled Assessment & Plan: tight glycemic control to keep blood glucose between 100-140 Subjective ROS Limited/Unobtainable: Yes Allergies: Coded Allergies: No Known Allergies (Unverified , 12/01/19) he has been refusing medications, IV line and lab drawn so far, he has been noncompliant and refusing care Objective Last 24 Hour Vital Signs Date Time Temp Pulse Resp B/P (MAP) Pulse Ox O2 Delivery O2 Flow Rate FiO2 04/22/20 12:00 128 04/22/20 12:00 98.4 120 18 125/93 (104) 97 04/22/20 09:45 Room Air 04/22/20 08:50 121 132/96 04/22/20 08:38 98.1 121 20 132/96 (108) 97 04/22/20 08:00 120 04/22/20 04:00 110 04/22/20 04:00 97.8 102 20 135/90 (105) 96 04/22/20 00:00 109 04/22/20 00:00 98.0 103 20 131/86 (101) 95 04/21/20 21:00 Room Air 04/21/20 21:00 107 132/91 04/21/20 20:00 97.9 107 20 132/91 (105) 96 04/21/20 20:00 116 Height (Feet): 6 Height (Inches): 2.00 Weight (Pounds): 243 General Appearance: WD/WN, no acute distress HEENT: normocephalic, atraumatic, anicteric, mucous membranes moist, PERRL Respiratory/Chest: chest wall non-tender, lungs clear, normal breath sounds, no respiratory distress, no accessory muscle use Cardiovascular: normal peripheral pulses, normal rate, regular rhythm, no gallop/murmur, no JVD Abdomen: normal bowel sounds, soft, non tender, no organomegaly, non distended, no mass, no scars Genitourinary: normal external genitalia Extremities: no cyanosis, no clubbing Skin: no rash, no lesions, no ulcers 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, no motor/sensory deficits, alert, responsive Lymphatic: no neck adenopathy, no groin adenopathy Musculoskeletal: normal muscle bulk, no effusion Microbiology Date/Time Source Procedure Growth Status 04/19/20 22:01 Wound Gram Stain - Final Complete 04/19/20 22:01 Wound Culture - Final Klebsiella Pneumoniae Usual Skin Beatriz Complete Laboratory Tests Test 04/22/20 12:06 POC Whole Blood Glucose Pending Current Medications Medications (Trade) Dose Ordered Sig/Mika Route PRN Reason Start Time Stop Time Status Last Admin Dose Admin Acetaminophen (Tylenol) 650 mg Q4H PRN ORAL Mild Pain (Pain Scale 1-3) 04/19/20 20:45 05/19/20 20:44 Carvedilol (Coreg) 3.125 mg EVERY 12 HOURS ORAL 04/21/20 21:00 05/21/20 20:59 Chlorhexidine Gluconate (Charity-Hex 2%) 1 applic BEFORE DINNER PRN TOPIC Diarrhea 04/19/20 20:45 07/18/20 20:44 Dextrose (Dextrose 50%) 25 ml Q30M PRN IV Hypoglycemia 04/20/20 11:30 07/19/20 11:29 Dextrose (Dextrose 50%) 50 ml Q30M PRN IV Hypoglycemia 04/20/20 11:30 07/19/20 11:29 Enoxaparin Sodium (Lovenox) 40 mg Q24H SUBQ 04/20/20 09:00 07/19/20 08:59 Folic Acid (Folate) 1 mg DAILY ORAL 04/22/20 09:00 05/22/20 08:59 Insulin Aspart (NovoLOG) 6 units TIWM SUBQ 04/20/20 12:00 07/19/20 11:59 Insulin Detemir (Levemir) 18 units DAILY SUBQ 04/20/20 12:00 07/19/20 11:59 Levofloxacin (Levaquin) 750 mg DAILY ORAL 04/21/20 14:45 04/28/20 14:44 Lorazepam (Ativan) 2 mg Q6H PRN ORAL For Anxiety 04/21/20 23:00 04/28/20 22:59 Pantoprazole (Protonix) 40 mg DAILY IV 04/20/20 09:00 05/20/20 08:59 Povidone Iodine (Betadine Trini) 1 applic DAILY TOPIC 04/22/20 15:00 07/21/20 14:59 04/22/20 15:01 Sodium Chloride 1,000 ml @ 50 mls/hr Q20H IV 04/19/20 21:45 05/19/20 21:44 04/19/20 23:55 Thiamine HCl (Vitamin B1) 100 mg DAILY ORAL 04/22/20 09:00 05/22/20 08:59 Zolpidem Tartrate (Ambien) 5 mg HSPRN PRN ORAL Insomnia 04/19/20 20:45 04/26/20 20:44 Marilou Stanton M.D. Apr 22, 2020 16:21
[2020-04-22 16:23] VITALS: BP 131/92
[2020-04-22] MEDS ORDERED: Tubing IV Secondary IV ONE (16:37)
--- NOTE | 2020-04-22 17:33 | Cardiology Progress Note ---
Assessment/Plan Status: fever Assessment/Plan 1. Non-healing leg ulcers b/l 2. CHF acute on chronic systolic on diastolic HF with reduced EF 25% Lasix for diuresis BNP elevated 3. Cellulitis and leukocytosis 2/2 leg ulcers 4. DMII 5. Psychiatric disorder 6. BRIA on CKD 7. Fever Low grade fever, tachycardic 2/2 fever and infection. Bb for rate control and CHF. Subjective ROS Limited/Unobtainable: No Cardiovascular: Reports: edema Respiratory: Reports: shortness of breath Gastrointestinal/Abdominal: Reports: poor appetite Genitourinary: Reports: no symptoms Subjective Low grade fever, resting Objective Last 24 Hour Vital Signs Date Time Temp Pulse Resp B/P (MAP) Pulse Ox O2 Delivery O2 Flow Rate FiO2 04/22/20 16:30 97.9 04/22/20 16:23 100.0 114 18 131/92 (105) 97 04/22/20 16:13 113 04/22/20 12:00 128 04/22/20 12:00 98.4 120 18 125/93 (104) 97 04/22/20 09:45 Room Air 04/22/20 08:50 121 132/96 04/22/20 08:38 98.1 121 20 132/96 (108) 97 04/22/20 08:00 120 04/22/20 04:00 110 04/22/20 04:00 97.8 102 20 135/90 (105) 96 04/22/20 00:00 109 04/22/20 00:00 98.0 103 20 131/86 (101) 95 04/21/20 21:00 Room Air 04/21/20 21:00 107 132/91 04/21/20 20:00 97.9 107 20 132/91 (105) 96 04/21/20 20:00 116 General Appearance: no apparent distress EENT: PERRL/EOMI Neck: no JVD Rhythm: NSR Cardiovascular: tachycardia Respiratory/Chest: no respiratory distress, crackles/rales Extremities: moderate edema 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
[2020-04-22 20:00] VITALS: BP 129/94
--- NOTE | 2020-04-22 23:00 | Psychiatric Progress Note ---
Psychiatry Progress Note Psychiatry Progress Note Medications Current Medications Medications (Trade) Dose Ordered Sig/Mika Route PRN Reason Start Time Stop Time Status Last Admin Dose Admin Acetaminophen (Tylenol) 650 mg Q4H PRN ORAL Mild Pain (Pain Scale 1-3) 04/19/20 20:45 05/19/20 20:44 Carvedilol (Coreg) 3.125 mg EVERY 12 HOURS ORAL 04/21/20 21:00 05/21/20 20:59 Chlorhexidine Gluconate (Charity-Hex 2%) 1 applic BEFORE DINNER PRN TOPIC Diarrhea 04/19/20 20:45 07/18/20 20:44 Dextrose (Dextrose 50%) 25 ml Q30M PRN IV Hypoglycemia 04/20/20 11:30 07/19/20 11:29 Dextrose (Dextrose 50%) 50 ml Q30M PRN IV Hypoglycemia 04/20/20 11:30 07/19/20 11:29 Enoxaparin Sodium (Lovenox) 40 mg Q24H SUBQ 04/20/20 09:00 07/19/20 08:59 Folic Acid (Folate) 1 mg DAILY ORAL 04/22/20 09:00 05/22/20 08:59 Insulin Aspart (NovoLOG) 6 units TIWM SUBQ 04/20/20 12:00 07/19/20 11:59 Insulin Detemir (Levemir) 18 units DAILY SUBQ 04/20/20 12:00 07/19/20 11:59 Levofloxacin (Levaquin) 750 mg DAILY ORAL 04/21/20 14:45 04/28/20 14:44 Lorazepam (Ativan) 2 mg Q6H PRN ORAL For Anxiety 04/21/20 23:00 04/28/20 22:59 Pantoprazole (Protonix) 40 mg DAILY ORAL 04/23/20 09:00 05/23/20 08:59 Povidone Iodine (Betadine Trini) 1 applic DAILY TOPIC 04/22/20 15:00 07/21/20 14:59 04/22/20 15:01 Sodium Chloride 1,000 ml @ 50 mls/hr Q20H IV 04/19/20 21:45 05/19/20 21:44 04/19/20 23:55 Thiamine HCl (Vitamin B1) 100 mg DAILY ORAL 04/22/20 09:00 05/22/20 08:59 Zolpidem Tartrate (Ambien) 5 mg HSPRN PRN ORAL Insomnia 04/19/20 20:45 04/26/20 20:44 Allergies: Coded Allergies: No Known Allergies (Unverified , 12/01/19) Objective Data Height (Feet): 6 Height (Inches): 2.00 Weight (Pounds): 243 General Appearance: no apparent distress Assessment/Plan Status: fever Kane Rose MD Apr 22, 2020 23:00
[2020-04-23] VITALS: BP 127/98
[2020-04-23 04:00] VITALS: BP 126/92
[2020-04-23] MEDS: NovoLOG Insulin Flexpen SUBQ SCH ×3 (06:15→16:35)
--- NOTE | 2020-04-23 06:28 | General Progress Note ---
Subjective Allergies: Coded Allergies: No Known Allergies (Unverified , 12/01/19) Subjective events noted interval notes reviewed glucose values are high - he continues to refuse medications Item Value Date Time Bedside Blood Glucose 390 mg/dl H 04/23/20 0615 Bedside Blood Glucose 395 mg/dl H 04/22/20 2100 Bedside Blood Glucose 344 mg/dl H 04/22/20 1700 Bedside Blood Glucose 346 mg/dl H 04/22/20 1247 Objective Last 24 Hour Vital Signs Date Time Temp Pulse Resp B/P (MAP) Pulse Ox O2 Delivery O2 Flow Rate FiO2 04/23/20 04:00 98.3 109 20 126/92 (103) 100 04/23/20 04:00 99 04/23/20 00:00 98.3 111 20 127/98 (108) 97 04/23/20 00:00 108 04/22/20 21:00 Room Air 04/22/20 21:00 118 129/94 04/22/20 20:00 98.4 118 20 129/94 (106) 98 04/22/20 20:00 119 04/22/20 16:30 97.9 04/22/20 16:23 100.0 114 18 131/92 (105) 97 04/22/20 16:13 113 04/22/20 12:00 128 04/22/20 12:00 98.4 120 18 125/93 (104) 97 04/22/20 09:45 Room Air 04/22/20 08:50 121 132/96 04/22/20 08:38 98.1 121 20 132/96 (108) 97 04/22/20 08:00 120 Intake and Output 04/22/20 04/23/20 18:59 06:59 Intake Total 360 ml 800 ml Balance 360 ml 800 ml Intake Oral 360 ml 800 ml # Voids 3 4 # Bowel Movements 2 Laboratory Tests 04/22/20 12:06: POC Whole Blood Glucose [Pending] 04/22/20 16:53: POC Whole Blood Glucose 344H Height (Feet): 6 Height (Inches): 2.00 Weight (Pounds): 243 General Appearance: no apparent distress Neck: normal alignment Cardiovascular: normal rate Respiratory/Chest: lungs clear Objective Current Medications Medications (Trade) Dose Ordered Sig/Mika Route PRN Reason Start Time Stop Time Status Last Admin Dose Admin Acetaminophen (Tylenol) 650 mg Q4H PRN ORAL Mild Pain (Pain Scale 1-3) 04/19/20 20:45 05/19/20 20:44 Carvedilol (Coreg) 3.125 mg EVERY 12 HOURS ORAL 04/21/20 21:00 05/21/20 20:59 Chlorhexidine Gluconate (Charity-Hex 2%) 1 applic BEFORE DINNER PRN TOPIC Diarrhea 04/19/20 20:45 07/18/20 20:44 Dextrose (Dextrose 50%) 25 ml Q30M PRN IV Hypoglycemia 04/20/20 11:30 07/19/20 11:29 Dextrose (Dextrose 50%) 50 ml Q30M PRN IV Hypoglycemia 04/20/20 11:30 07/19/20 11:29 Enoxaparin Sodium (Lovenox) 40 mg Q24H SUBQ 04/20/20 09:00 07/19/20 08:59 Folic Acid (Folate) 1 mg DAILY ORAL 04/22/20 09:00 05/22/20 08:59 Insulin Aspart (NovoLOG) 6 units TIWM SUBQ 04/20/20 12:00 07/19/20 11:59 Insulin Detemir (Levemir) 18 units DAILY SUBQ 04/20/20 12:00 07/19/20 11:59 Levofloxacin (Levaquin) 750 mg DAILY ORAL 04/21/20 14:45 04/28/20 14:44 Lorazepam (Ativan) 2 mg Q6H PRN ORAL For Anxiety 04/21/20 23:00 04/28/20 22:59 Pantoprazole (Protonix) 40 mg DAILY ORAL 04/23/20 09:00 05/23/20 08:59 Povidone Iodine (Betadine Trini) 1 applic DAILY TOPIC 04/22/20 15:00 07/21/20 14:59 04/22/20 15:01 Sodium Chloride 1,000 ml @ 50 mls/hr Q20H IV 04/19/20 21:45 05/19/20 21:44 04/19/20 23:55 Thiamine HCl (Vitamin B1) 100 mg DAILY ORAL 04/22/20 09:00 05/22/20 08:59 Zolpidem Tartrate (Ambien) 5 mg HSPRN PRN ORAL Insomnia 04/19/20 20:45 04/26/20 20:44 Assessment/Plan Problem List: (1) Diabetes mellitus type 2 with complications, uncontrolled ICD Codes: E11.8 - Type 2 diabetes mellitus with unspecified complications; E11.65 - Type 2 diabetes mellitus with hyperglycemia SNOMED: 30178123, 545664428, 888304358 (2) Schizophrenia ICD Codes: F20.9 - Schizophrenia, unspecified SNOMED: 46665442 Qualifiers: Qualified Codes: F20.9 - Schizophrenia, unspecified (3) Cellulitis and abscess of foot ICD Codes: L03.119 - Cellulitis of unspecified part of limb; L02.619 - Cutaneous abscess of unspecified foot SNOMED: 082965562, 733271948, 410433653 Status: fever Assessment/Plan: continue with scheduled Levemir and Novolog orders consider psych consultation Dav Costello MD Apr 23, 2020 06:28
[2020-04-23 08:00] VITALS: BP 148/104
[2020-04-23] MEDS: Levofloxacin 750mg tab ORAL SCH (08:53)
[2020-04-23] MEDS: Enoxaparin 40mg Inj SUBQ SCH (08:54)
[2020-04-23] MEDS: Betadine 4oz Bottle TOPIC SCH (08:54)
[2020-04-23] MEDS: Levemir Flexpen SUBQ SCH (08:54)
[2020-04-23] MEDS: Thiamine 100mg tab ORAL SCH (08:54)
[2020-04-23 11:50] VITALS: BP 146/79
--- NOTE | 2020-04-23 12:12 | Pulmonology Progress Note ---
Subjective ROS Limited/Unobtainable: No Interval Events: pt refusing care saying "chemicals are toxic" Constitutional: Reports: no symptoms Respiratory: Reports: dry cough Gastrointestinal/Abdominal: Reports: no symptoms Psychiatric: Reports: no symptoms Skin: Reports: no symptoms Musculoskeletal: Reports: no symptoms Allergies: Coded Allergies: No Known Allergies (Unverified , 12/01/19) Objective Last 24 Hour Vital Signs Date Time Temp Pulse Resp B/P (MAP) Pulse Ox O2 Delivery O2 Flow Rate FiO2 04/23/20 11:50 98.6 72 21 146/79 (101) 97 04/23/20 09:30 Room Air 04/23/20 08:50 113 148/104 04/23/20 08:00 98.7 113 21 148/104 (119) 99 04/23/20 08:00 101 04/23/20 04:00 98.3 109 20 126/92 (103) 100 04/23/20 04:00 99 04/23/20 00:00 98.3 111 20 127/98 (108) 97 04/23/20 00:00 108 04/22/20 21:00 Room Air 04/22/20 21:00 118 129/94 04/22/20 20:00 98.4 118 20 129/94 (106) 98 04/22/20 20:00 119 04/22/20 16:30 97.9 04/22/20 16:23 100.0 114 18 131/92 (105) 97 04/22/20 16:13 113 Intake and Output 04/22/20 04/23/20 19:00 07:00 Intake Total 360 ml 800 ml Balance 360 ml 800 ml Intake Oral 360 ml 800 ml # Voids 3 4 # Bowel Movements 2 Objective 04/23 pt still refusing care; NAD; arterial doppler scheduled today 04/22 pt refusing care; NAD 04/21 NAD; pt refusing IV abx, and insulin General Appearance: WD/WN, no acute distress HEENT: normocephalic, atraumatic Respiratory: lungs clear Cardiovascular: regular rhythm, tachycardia Abdomen: soft, non tender Skin: ulcers, other - b/l LE cellulitis Neurologic: alert Laboratory Tests 04/22/20 16:53: POC Whole Blood Glucose 344H 04/23/20 11:25: POC Whole Blood Glucose 492H Current Medications Medications (Trade) Dose Ordered Sig/Mika Route PRN Reason Start Time Stop Time Status Last Admin Dose Admin Acetaminophen (Tylenol) 650 mg Q4H PRN ORAL Mild Pain (Pain Scale 1-3) 04/19/20 20:45 05/19/20 20:44 Carvedilol (Coreg) 3.125 mg EVERY 12 HOURS ORAL 04/21/20 21:00 05/21/20 20:59 Chlorhexidine Gluconate (Charity-Hex 2%) 1 applic BEFORE DINNER PRN TOPIC Diarrhea 04/19/20 20:45 07/18/20 20:44 Dextrose (Dextrose 50%) 25 ml Q30M PRN IV Hypoglycemia 04/20/20 11:30 07/19/20 11:29 Dextrose (Dextrose 50%) 50 ml Q30M PRN IV Hypoglycemia 04/20/20 11:30 07/19/20 11:29 Enoxaparin Sodium (Lovenox) 40 mg Q24H SUBQ 04/20/20 09:00 07/19/20 08:59 Folic Acid (Folate) 1 mg DAILY ORAL 04/22/20 09:00 05/22/20 08:59 Insulin Aspart (NovoLOG) 6 units TIWM SUBQ 04/20/20 12:00 07/19/20 11:59 Insulin Detemir (Levemir) 18 units DAILY SUBQ 04/20/20 12:00 07/19/20 11:59 Levofloxacin (Levaquin) 750 mg DAILY ORAL 04/21/20 14:45 04/28/20 14:44 Lorazepam (Ativan) 2 mg Q6H PRN ORAL For Anxiety 04/21/20 23:00 04/28/20 22:59 Pantoprazole (Protonix) 40 mg DAILY ORAL 04/23/20 09:00 05/23/20 08:59 Povidone Iodine (Betadine Trini) 1 applic DAILY TOPIC 04/22/20 15:00 07/21/20 14:59 04/22/20 15:01 Sodium Chloride 1,000 ml @ 50 mls/hr Q20H IV 04/19/20 21:45 05/19/20 21:44 04/19/20 23:55 Thiamine HCl (Vitamin B1) 100 mg DAILY ORAL 04/22/20 09:00 05/22/20 08:59 Zolpidem Tartrate (Ambien) 5 mg HSPRN PRN ORAL Insomnia 04/19/20 20:45 04/26/20 20:44 Assessment/Plan Assessment/Plan 1. Diabetes mellitus, not well controlled - on insulin per Dr. Costello. - pt still refusing care 2. Pleural effusion. - has small left pleural effusion - Bilateral patchy densities, suspect pneumonia - status post IV Lasix once in the ER. - currently saturating well on RA - 2D echo shows LV EF 25-30% - provide supplemental oxygen as needed - cont monitor saO2 3. Patchy opacities in lungs, likely pneumonia. -Abx per ID 4. DVT prophylaxis. -on Lovenox. 5. Leg ulcer. -cefazolin and doxycycline empirically - will be switched to oral levaquin per ID - pt refusing care 6. Refusal of care - would appreciate psych consult The care for this patient was discussed with my supervising physician. Time spent for this case was approximately 31 minutes. Steve Jeffrey Apr 23, 2020 12:12 Mushtaq Morrison MD Apr 24, 2020 13:44
--- NOTE | 2020-04-23 14:46 | Cardiology Progress Note ---
Assessment/Plan Status: stable Assessment/Plan 1. Non-healing leg ulcers b/l 2. CHF acute on chronic systolic on diastolic HF with reduced EF 25% Lasix for diuresis BNP elevated Repeat echo declined by pt 3. Cellulitis and leukocytosis 2/2 leg ulcers 4. DMII 5. Psychiatric disorder 6. BRIA on CKD 7. Fever Increase Bb for rate control and CHF, diuresis with Lasix. No plan for intervention, pt declines to be evaluated for AICD Subjective ROS Limited/Unobtainable: No Cardiovascular: Reports: edema Respiratory: Reports: shortness of breath Subjective Refused echo, no acute events Objective Last 24 Hour Vital Signs Date Time Temp Pulse Resp B/P (MAP) Pulse Ox O2 Delivery O2 Flow Rate FiO2 04/23/20 12:00 106 04/23/20 11:50 98.6 72 21 146/79 (101) 97 04/23/20 09:30 Room Air 04/23/20 08:50 113 148/104 04/23/20 08:00 98.7 113 21 148/104 (119) 99 04/23/20 08:00 101 04/23/20 04:00 98.3 109 20 126/92 (103) 100 04/23/20 04:00 99 04/23/20 00:00 98.3 111 20 127/98 (108) 97 04/23/20 00:00 108 04/22/20 21:00 Room Air 04/22/20 21:00 118 129/94 04/22/20 20:00 98.4 118 20 129/94 (106) 98 04/22/20 20:00 119 04/22/20 16:30 97.9 04/22/20 16:23 100.0 114 18 131/92 (105) 97 04/22/20 16:13 113 General Appearance: no apparent distress EENT: PERRL/EOMI Neck: supple, no JVD Rhythm: NSR Cardiovascular: tachycardia Respiratory/Chest: no respiratory distress, no accessory muscle use Abdomen: soft Extremities: moderate edema 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
--- NOTE | 2020-04-23 15:09 | Infectious Diseases Prog Note ---
Assessment/Plan Problems: (1) Pneumonia Assessment & Plan: with B/L patchy infiltrates and negative rapid test for COVID , has been refusing IV cefepime and vancomycin , aspiration precaution. we will continue oral Levaquin to cover for both pneumonia and wound infection for 7 days if patient agrees to take it (2) Open leg wound Assessment & Plan: with gram-negative rods, we will start oral Levaquin since refusing IV, wound care consult (3) Cellulitis Assessment & Plan: will start cefazoline and doxycycline empirically , keep leg elevated all the time (4) CHF (congestive heart failure) Assessment & Plan: continue cardiac meds with diuretics (5) Diabetes mellitus type 2 with complications, uncontrolled Assessment & Plan: tight glycemic control to keep blood glucose between 100-140 Subjective Constitutional: Reports: no symptoms HEENT: Reports: no symptoms Respiratory: Reports: no symptoms Breasts: Reports: no symptoms Cardiovascular: Reports: no symptoms Gastrointestinal/Abdominal: Reports: no symptoms Genitourinary: Reports: no symptoms Neurologic: Reports: no symptoms Psychiatric: Reports: no symptoms Skin: Reports: no symptoms Endocrine: Reports: no symptoms Hematologic: Reports: no symptoms Allergies: Coded Allergies: No Known Allergies (Unverified , 12/01/19) he has been refusing medications, IV line and lab drawn so far, he has been noncompliant and refusing care Objective Last 24 Hour Vital Signs Date Time Temp Pulse Resp B/P (MAP) Pulse Ox O2 Delivery O2 Flow Rate FiO2 04/23/20 12:00 106 04/23/20 11:50 98.6 72 21 146/79 (101) 97 04/23/20 09:30 Room Air 04/23/20 08:50 113 148/104 04/23/20 08:00 98.7 113 21 148/104 (119) 99 04/23/20 08:00 101 04/23/20 04:00 98.3 109 20 126/92 (103) 100 04/23/20 04:00 99 04/23/20 00:00 98.3 111 20 127/98 (108) 97 04/23/20 00:00 108 04/22/20 21:00 Room Air 04/22/20 21:00 118 129/94 04/22/20 20:00 98.4 118 20 129/94 (106) 98 12/22/20 20:00 119 04/22/20 16:30 97.9 04/22/20 16:23 100.0 114 18 131/92 (105) 97 04/22/20 16:13 113 Height (Feet): 6 Height (Inches): 2.00 Weight (Pounds): 243 General Appearance: WD/WN HEENT: normocephalic, anicteric Respiratory/Chest: chest wall non-tender, normal breath sounds, no accessory muscle use Cardiovascular: normal peripheral pulses, regular rhythm, no gallop/murmur Abdomen: normal bowel sounds, no organomegaly, no mass Extremities: no cyanosis, no clubbing Skin: no rash, no lesions Neurologic/Psychiatric: no motor/sensory deficits, alert Lymphatic: no neck adenopathy, no groin adenopathy Laboratory Tests Test 04/22/20 16:53 04/23/20 11:25 POC Whole Blood Glucose 344 MG/DL (74-106) H 492 MG/DL (74-106) H Current Medications Medications (Trade) Dose Ordered Sig/Mika Route PRN Reason Start Time Stop Time Status Last Admin Dose Admin Acetaminophen (Tylenol) 650 mg Q4H PRN ORAL Mild Pain (Pain Scale 1-3) 04/19/20 20:45 05/19/20 20:44 Carvedilol (Coreg) 6.25 mg EVERY 12 HOURS ORAL 04/23/20 21:00 05/21/20 20:59 Chlorhexidine Gluconate (Charity-Hex 2%) 1 applic BEFORE DINNER PRN TOPIC Diarrhea 04/19/20 20:45 07/18/20 20:44 Dextrose (Dextrose 50%) 25 ml Q30M PRN IV Hypoglycemia 04/20/20 11:30 07/19/20 11:29 Dextrose (Dextrose 50%) 50 ml Q30M PRN IV Hypoglycemia 04/20/20 11:30 07/19/20 11:29 Enoxaparin Sodium (Lovenox) 40 mg Q24H SUBQ 04/20/20 09:00 07/19/20 08:59 Folic Acid (Folate) 1 mg DAILY ORAL 04/22/20 09:00 05/22/20 08:59 Furosemide (Lasix) 40 mg DAILY ORAL 04/24/20 09:00 05/24/20 08:59 Insulin Aspart (NovoLOG) 6 units TIWM SUBQ 04/20/20 12:00 07/19/20 11:59 Insulin Detemir (Levemir) 18 units DAILY SUBQ 04/20/20 12:00 07/19/20 11:59 Levofloxacin (Levaquin) 750 mg DAILY ORAL 04/21/20 14:45 04/28/20 14:44 Lisinopril (ZestriL) 2.5 mg DAILY ORAL 04/24/20 09:00 05/24/20 08:59 Lorazepam (Ativan) 2 mg Q6H PRN ORAL For Anxiety 04/21/20 23:00 04/28/20 22:59 Pantoprazole (Protonix) 40 mg DAILY ORAL 04/23/20 09:00 05/23/20 08:59 Povidone Iodine (Betadine Trini) 1 applic DAILY TOPIC 04/22/20 15:00 07/21/20 14:59 04/22/20 15:01 Sodium Chloride 1,000 ml @ 50 mls/hr Q20H IV 04/19/20 21:45 05/19/20 21:44 04/19/20 23:55 Thiamine HCl (Vitamin B1) 100 mg DAILY ORAL 04/22/20 09:00 05/22/20 08:59 Zolpidem Tartrate (Ambien) 5 mg HSPRN PRN ORAL Insomnia 04/19/20 20:45 04/26/20 20:44 Marilou Satnton M.D. Apr 23, 2020 15:09
--- NOTE | 2020-04-23 15:30 | General Progress Note ---
Subjective Allergies: Coded Allergies: No Known Allergies (Unverified , 12/01/19) Objective Last 24 Hour Vital Signs Date Time Temp Pulse Resp B/P (MAP) Pulse Ox O2 Delivery O2 Flow Rate FiO2 04/23/20 12:00 106 04/23/20 11:50 98.6 72 21 146/79 (101) 97 04/23/20 09:30 Room Air 04/23/20 08:50 113 148/104 04/23/20 08:00 98.7 113 21 148/104 (119) 99 04/23/20 08:00 101 04/23/20 04:00 98.3 109 20 126/92 (103) 100 04/23/20 04:00 99 04/23/20 00:00 98.3 111 20 127/98 (108) 97 04/23/20 00:00 108 04/22/20 21:00 Room Air 04/22/20 21:00 118 129/94 04/22/20 20:00 98.4 118 20 129/94 (106) 98 04/22/20 20:00 119 04/22/20 16:30 97.9 04/22/20 16:23 100.0 114 18 131/92 (105) 97 04/22/20 16:13 113 Intake and Output 04/22/20 04/23/20 19:00 07:00 Intake Total 360 ml 800 ml Balance 360 ml 800 ml Intake Oral 360 ml 800 ml # Voids 3 4 # Bowel Movements 2 Laboratory Tests 04/22/20 16:53: POC Whole Blood Glucose 344H 04/23/20 11:25: POC Whole Blood Glucose 492H Height (Feet): 6 Height (Inches): 2.00 Weight (Pounds): 243 Assessment/Plan Status: stable Assessment/Plan: S, O;: I am ok deneis chest pain, has diffuse weakness PHYSICAL EXAMINATION:HEAD AND NECK: Atraumatic and normocephalic. CHEST: Diffuse bronchial breathing sounds. HEART: S1, S2. Regular rate and rhythm. ABDOMEN: Soft. No organomegaly.MUSCULOSKELETAL: Positive for the edema in the lower extremity. NEUROLOGIC: Patient is awake, alert, oriented x3. Meds: reviewed and reconciled ASSESSMENT AND PLAN: 1. Community-acquired pneumonia/ edema 2. Renal failure, age indeterminate. 3. Abnormal liver function tests. 4. Lower extremity edema, possibility of heart failure cannot be excluded. 5. Diabetes type 2.Uncontrolled 6. GI and DVT prophylaxes. 7. Sepsis secondary to #1. 8. DM 9. Refusal of medical care PLAN OF CARE: order an Echo cardiology note reviewed Limited treatment secondary to refusal of care Atul Camp MD Apr 23, 2020 15:30
[2020-04-23 16:00] VITALS: BP 109/67
--- NOTE | 2020-04-23 18:45 | Consultation ---
DATE OF CONSULTATION: 04/23/2020 CONSULTING PHYSICIAN: Kane Rose MD HISTORY OF PRESENT ILLNESS: This is a 44-year-old male with a history of diabetes, noncompliance, depression, anxiety who has been admitted to the hospital for worsening of pain and swelling of the lower extremities. During evaluation, patient is irritable, has depressed mood, anhedonia, worthlessness, hopelessness, decreased energy. PAST PSYCHIATRIC HISTORY: Depression, anxiety, noncompliant with medications. He also has been abusing alcohol. He is not forthcoming about how much he is abusing. PAST MEDICAL HISTORY: Diabetes. ALLERGIES: No known drug allergies. SUBSTANCE ABUSE HISTORY: No known history of illicit drugs; however, he has been using alcohol. SOCIAL HISTORY: Patient lives with mother. Unemployed. Past financial issues. MEDICATIONS: He is not taking any psychotropic medication. He is on insulin; however, he is not compliant with it. MENTAL STATUS EXAMINATION: Alert, oriented times self, place, situation, and date. Mood is irritable and anxious. Affect is blunted, congruent with mood. Thought process concrete. Thought content, no suicidal or homicidal ideation. Cognition is impaired. Insight and judgment is impaired. ASSESSMENT: [place] I Major depressive disorder. [place] II Deferred. [place] III As above. [place] IV Low. [place] V 50. PLAN: 1. We will start the patient on antidepressant and encourage him to take his medications. Patient has capacity to refuse medications. 2. Provide the patient with reality orientation and supportive therapy. Kane Rose M.D. DR: CHARLES JOB#: [id number] CC:
[2020-04-23 20:00] VITALS: BP 132/90
[2020-04-23] MEDS: Carvedilol 6.25mg Tab ORAL SCH (20:54)
[2020-04-24] VITALS: BP 136/94
[2020-04-24 04:00] VITALS: BP 137/96
--- NOTE | 2020-04-24 06:09 | General Progress Note ---
Subjective ROS Limited/Unobtainable: Yes Allergies: Coded Allergies: No Known Allergies (Unverified , 12/01/19) Subjective events noted interval notes reviewed glucose values are high - he continues to refuse medications Item Value Date Time Bedside Blood Glucose 457 mg/dl H 04/23/20 2100 Bedside Blood Glucose 421 mg/dl H 04/23/20 1635 Bedside Blood Glucose 492 mg/dl H 04/23/20 1159 Bedside Blood Glucose 390 mg/dl H 04/23/20 0615 Objective Last 24 Hour Vital Signs Date Time Temp Pulse Resp B/P (MAP) Pulse Ox O2 Delivery O2 Flow Rate FiO2 04/24/20 04:00 98 04/24/20 04:00 97.9 102 20 137/96 (110) 97 04/24/20 00:00 112 04/24/20 00:00 98.0 86 20 136/94 (108) 99 04/23/20 21:00 Room Air 04/23/20 20:54 110 132/90 04/23/20 20:00 119 04/23/20 20:00 98.2 110 20 132/90 (104) 99 04/23/20 16:43 109 04/23/20 16:00 97.5 60 21 109/67 (81) 97 04/23/20 12:00 106 04/23/20 11:50 98.6 72 21 146/79 (101) 97 04/23/20 09:30 Room Air 04/23/20 08:50 113 148/104 04/23/20 08:00 98.7 113 21 148/104 (119) 99 04/23/20 08:00 101 Intake and Output 04/23/20 04/24/20 19:00 07:00 Intake Total 720 ml Balance 720 ml Intake Oral 720 ml # Voids 3 Laboratory Tests 04/23/20 11:25: POC Whole Blood Glucose 492H 04/23/20 16:34: POC Whole Blood Glucose 421H Height (Feet): 6 Height (Inches): 2.00 Weight (Pounds): 243 General Appearance: no apparent distress Neck: normal alignment Cardiovascular: normal rate Respiratory/Chest: lungs clear Objective Current Medications Medications (Trade) Dose Ordered Sig/Mika Route PRN Reason Start Time Stop Time Status Last Admin Dose Admin Acetaminophen (Tylenol) 650 mg Q4H PRN ORAL Mild Pain (Pain Scale 1-3) 12/19/20 20:45 05/19/20 20:44 Carvedilol (Coreg) 6.25 mg EVERY 12 HOURS ORAL 04/23/20 21:00 05/21/20 20:59 Chlorhexidine Gluconate (Charity-Hex 2%) 1 applic BEFORE DINNER PRN TOPIC Diarrhea 04/19/20 20:45 07/18/20 20:44 Dextrose (Dextrose 50%) 25 ml Q30M PRN IV Hypoglycemia 04/20/20 11:30 07/19/20 11:29 Dextrose (Dextrose 50%) 50 ml Q30M PRN IV Hypoglycemia 04/20/20 11:30 07/19/20 11:29 Enoxaparin Sodium (Lovenox) 40 mg Q24H SUBQ 04/20/20 09:00 07/19/20 08:59 Folic Acid (Folate) 1 mg DAILY ORAL 04/22/20 09:00 05/22/20 08:59 Furosemide (Lasix) 40 mg DAILY ORAL 04/24/20 09:00 05/24/20 08:59 Insulin Aspart (NovoLOG) 6 units TIWM SUBQ 04/20/20 12:00 07/19/20 11:59 Insulin Detemir (Levemir) 18 units DAILY SUBQ 04/20/20 12:00 07/19/20 11:59 Levofloxacin (Levaquin) 750 mg DAILY ORAL 04/21/20 14:45 04/28/20 14:44 Lisinopril (ZestriL) 2.5 mg DAILY ORAL 04/24/20 09:00 05/24/20 08:59 Lorazepam (Ativan) 2 mg Q6H PRN ORAL For Anxiety 04/21/20 23:00 04/28/20 22:59 Pantoprazole (Protonix) 40 mg DAILY ORAL 04/23/20 09:00 05/23/20 08:59 Povidone Iodine (Betadine Trini) 1 applic DAILY TOPIC 04/22/20 15:00 07/21/20 14:59 04/22/20 15:01 Sodium Chloride 1,000 ml @ 50 mls/hr Q20H IV 04/19/20 21:45 05/19/20 21:44 04/19/20 23:55 Thiamine HCl (Vitamin B1) 100 mg DAILY ORAL 04/22/20 09:00 05/22/20 08:59 Zolpidem Tartrate (Ambien) 5 mg HSPRN PRN ORAL Insomnia 04/19/20 20:45 04/26/20 20:44 Assessment/Plan Problem List: (1) Diabetes mellitus type 2 with complications, uncontrolled ICD Codes: E11.8 - Type 2 diabetes mellitus with unspecified complications; E11.65 - Type 2 diabetes mellitus with hyperglycemia SNOMED: 19880742, 157709854, [id number] (2) Schizophrenia ICD Codes: F20.9 - Schizophrenia, unspecified SNOMED: [id number] Qualifiers: Qualified Codes: F20.9 - Schizophrenia, unspecified (3) Cellulitis and abscess of foot ICD Codes: L03.119 - Cellulitis of unspecified part of limb; L02.619 - Cutaneous abscess of unspecified foot SNOMED: 605629960, 922780494, [id number] Status: stable Assessment/Plan: continue with scheduled Levemir and Novolog orders followed by psych Dav Costello MD Apr 24, 2020 06:09
[2020-04-24] MEDS: NovoLOG Insulin Flexpen SUBQ SCH ×3 (06:28→17:00)
[2020-04-24 08:00] VITALS: BP 136/87
[2020-04-24] MEDS: Levofloxacin 750mg tab ORAL SCH (09:00)
[2020-04-24] MEDS: Lisinopril 2.5mg tab ORAL SCH (09:00)
[2020-04-24] MEDS: Furosemide 40mg tab ORAL SCH (09:00)
[2020-04-24] MEDS: Levemir Flexpen SUBQ SCH (09:00)
[2020-04-24] MEDS: Thiamine 100mg tab ORAL SCH (09:00)
[2020-04-24] MEDS: Enoxaparin 40mg Inj SUBQ SCH (09:00)
[2020-04-24] MEDS: Carvedilol 6.25mg Tab ORAL SCH ×2 (09:00→21:00)
[2020-04-24] MEDS: Betadine 4oz Bottle TOPIC SCH (09:00)
--- NOTE | 2020-04-24 11:56 | General Progress Note ---
Subjective Allergies: Coded Allergies: No Known Allergies (Unverified , 12/01/19) Objective Last 24 Hour Vital Signs Date Time Temp Pulse Resp B/P (MAP) Pulse Ox O2 Delivery O2 Flow Rate FiO2 04/24/20 09:00 Room Air 04/24/20 08:00 102 04/24/20 08:00 97.5 107 20 136/87 (103) 96 04/24/20 04:00 98 04/24/20 04:00 97.9 102 20 137/96 (110) 97 04/24/20 00:00 112 04/24/20 00:00 98.0 86 20 136/94 (108) 99 04/23/20 21:00 Room Air 04/23/20 20:54 110 132/90 04/23/20 20:00 119 04/23/20 20:00 98.2 110 20 132/90 (104) 99 04/23/20 16:43 109 04/23/20 16:00 97.5 60 21 109/67 (81) 97 04/23/20 12:00 106 Intake and Output 04/23/20 04/24/20 19:00 07:00 Intake Total 720 ml 300 ml Balance 720 ml 300 ml Intake Oral 720 ml 300 ml # Voids 3 3 Laboratory Tests 04/23/20 16:34: POC Whole Blood Glucose 421H Height (Feet): 6 Height (Inches): 2.00 Weight (Pounds): 243 Assessment/Plan Status: stable Assessment/Plan: S, O;: I am ok deneis chest pain, has diffuse weakness PHYSICAL EXAMINATION:HEAD AND NECK: Atraumatic and normocephalic. CHEST: Diffuse bronchial breathing sounds. HEART: S1, S2. Regular rate and rhythm. ABDOMEN: Soft. No organomegaly.MUSCULOSKELETAL: Positive for the edema in the lower extremity. NEUROLOGIC: Patient is awake, alert, oriented x3. Meds: reviewed and reconciled ASSESSMENT AND PLAN: 1. Community-acquired pneumonia/ edema 2. Renal failure, age indeterminate. 3. Abnormal liver function tests. 4. Lower extremity edema, possibility of heart failure cannot be excluded. 5. Diabetes type 2.Uncontrolled 6. GI and DVT prophylaxes. 7. Sepsis secondary to #1. 8. DM 9. Refusal of medical care PLAN OF CARE: cardiology note reviewed Limited and sub optimal treatment secondary to refusal of care Atul Camp MD Apr 24, 2020 11:56
[2020-04-24 12:00] VITALS: BP 119/86
--- NOTE | 2020-04-24 12:45 | Pulmonology Progress Note ---
Subjective ROS Limited/Unobtainable: Yes Interval Events: pt still refusing care Constitutional: Reports: no symptoms Respiratory: Reports: dry cough Gastrointestinal/Abdominal: Reports: no symptoms Psychiatric: Reports: no symptoms Skin: Reports: no symptoms Musculoskeletal: Reports: no symptoms Allergies: Coded Allergies: No Known Allergies (Unverified , 12/01/19) Objective Last 24 Hour Vital Signs Date Time Temp Pulse Resp B/P (MAP) Pulse Ox O2 Delivery O2 Flow Rate FiO2 04/24/20 12:00 97.0 105 18 119/86 (97) 96 04/24/20 09:00 Room Air 04/24/20 08:00 102 04/24/20 08:00 97.5 107 20 136/87 (103) 96 04/24/20 04:00 98 04/24/20 04:00 97.9 102 20 137/96 (110) 97 04/24/20 00:00 112 04/24/20 00:00 98.0 86 20 136/94 (108) 99 04/23/20 21:00 Room Air 04/23/20 20:54 110 132/90 04/23/20 20:00 119 04/23/20 20:00 98.2 110 20 132/90 (104) 99 04/23/20 16:43 109 04/23/20 16:00 97.5 60 21 109/67 (81) 97 Intake and Output 04/23/20 04/24/20 19:00 07:00 Intake Total 720 ml 300 ml Balance 720 ml 300 ml Intake Oral 720 ml 300 ml # Voids 3 3 Objective 04/23 pt refusing care/meds; NAD 04/23 pt still refusing care; NAD; arterial doppler scheduled today 04/22 pt refusing care; NAD 04/21 NAD; pt refusing IV abx, and insulin General Appearance: WD/WN, no acute distress HEENT: normocephalic, atraumatic Respiratory: lungs clear Cardiovascular: regular rhythm, tachycardia Abdomen: soft, non tender Skin: ulcers, other - b/l LE cellulitis Neurologic: alert Laboratory Tests 04/23/20 16:34: POC Whole Blood Glucose 421H Current Medications Medications (Trade) Dose Ordered Sig/Mika Route PRN Reason Start Time Stop Time Status Last Admin Dose Admin Acetaminophen (Tylenol) 650 mg Q4H PRN ORAL Mild Pain (Pain Scale 1-3) 04/19/20 20:45 05/19/20 20:44 Carvedilol (Coreg) 6.25 mg EVERY 12 HOURS ORAL 04/23/20 21:00 05/21/20 20:59 Chlorhexidine Gluconate (Charity-Hex 2%) 1 applic BEFORE DINNER PRN TOPIC Diarrhea 04/19/20 20:45 07/18/20 20:44 Dextrose (Dextrose 50%) 25 ml Q30M PRN IV Hypoglycemia 04/20/20 11:30 07/19/20 11:29 Dextrose (Dextrose 50%) 50 ml Q30M PRN IV Hypoglycemia 04/20/20 11:30 07/19/20 11:29 Enoxaparin Sodium (Lovenox) 40 mg Q24H SUBQ 04/20/20 09:00 07/19/20 08:59 Folic Acid (Folate) 1 mg DAILY ORAL 04/22/20 09:00 05/22/20 08:59 Furosemide (Lasix) 40 mg DAILY ORAL 04/24/20 09:00 05/24/20 08:59 Insulin Aspart (NovoLOG) 6 units TIWM SUBQ 04/20/20 12:00 07/19/20 11:59 Insulin Detemir (Levemir) 18 units DAILY SUBQ 04/20/20 12:00 07/19/20 11:59 Levofloxacin (Levaquin) 750 mg DAILY ORAL 04/21/20 14:45 04/28/20 14:44 Lisinopril (ZestriL) 2.5 mg DAILY ORAL 04/24/20 09:00 05/24/20 08:59 Lorazepam (Ativan) 2 mg Q6H PRN ORAL For Anxiety 04/21/20 23:00 04/28/20 22:59 Pantoprazole (Protonix) 40 mg DAILY ORAL 04/23/20 09:00 05/23/20 08:59 Povidone Iodine (Betadine Trini) 1 applic DAILY TOPIC 04/22/20 15:00 07/21/20 14:59 04/22/20 15:01 Sodium Chloride 1,000 ml @ 50 mls/hr Q20H IV 04/19/20 21:45 05/19/20 21:44 04/19/20 23:55 Thiamine HCl (Vitamin B1) 100 mg DAILY ORAL 04/22/20 09:00 05/22/20 08:59 Zolpidem Tartrate (Ambien) 5 mg HSPRN PRN ORAL Insomnia 04/19/20 20:45 04/26/20 20:44 Assessment/Plan Assessment/Plan 1. Diabetes mellitus, not well controlled - on insulin per Dr. Costello. - pt still refusing care 2. Pleural effusion. - has small left pleural effusion - Bilateral patchy densities, suspect pneumonia - status post IV Lasix once in the ER. - currently saturating well on RA - 2D echo shows LV EF 25-30% - provide supplemental oxygen as needed - cont monitor saO2 3. Patchy opacities in lungs, likely pneumonia. -Abx per ID 4. DVT prophylaxis. -on Lovenox. 5. Leg ulcer. - cefazolin and doxycycline empirically - will be switched to oral levaquin per ID - pt refusing care 6. Refusal of care - pt starting antidepressant per psych The care for this patient was discussed with my supervising physician. Time spent for this case was approximately 31 minutes. Steve Jeffrey Apr 24, 2020 12:45 Mushtaq Morrison MD Apr 24, 2020 13:44
--- NOTE | 2020-04-24 13:04 | Infectious Diseases Prog Note ---
Assessment/Plan Problems: (1) Pneumonia Assessment & Plan: with B/L patchy infiltrates and negative rapid test for COVID , has been refusing IV cefepime and vancomycin , aspiration precaution. we will continue oral Levaquin to cover for both pneumonia and wound infection for 7 days if patient agrees to take it (2) Open leg wound Assessment & Plan: with gram-negative rods, we will start oral Levaquin since refusing IV, wound care consult (3) Cellulitis Assessment & Plan: will start cefazoline and doxycycline empirically , keep leg elevated all the time (4) CHF (congestive heart failure) Assessment & Plan: continue cardiac meds with diuretics (5) Diabetes mellitus type 2 with complications, uncontrolled Assessment & Plan: tight glycemic control to keep blood glucose between 100-140 Subjective Constitutional: Reports: no symptoms HEENT: Reports: no symptoms Respiratory: Reports: no symptoms Breasts: Reports: no symptoms Cardiovascular: Reports: no symptoms Gastrointestinal/Abdominal: Reports: no symptoms Genitourinary: Reports: no symptoms Neurologic: Reports: no symptoms Psychiatric: Reports: no symptoms Skin: Reports: no symptoms Endocrine: Reports: no symptoms Hematologic: Reports: no symptoms Musculoskeletal: Reports: no symptoms Allergies: Coded Allergies: No Known Allergies (Unverified , 12/01/19) he has been refusing medications, IV line and lab drawn so far, he has been noncompliant and refusing care Objective Last 24 Hour Vital Signs Date Time Temp Pulse Resp B/P (MAP) Pulse Ox O2 Delivery O2 Flow Rate FiO2 04/24/20 12:00 97.0 105 18 119/86 (97) 96 04/24/20 09:00 Room Air 04/24/20 08:00 102 04/24/20 08:00 97.5 107 20 136/87 (103) 96 04/24/20 04:00 98 04/24/20 04:00 97.9 102 20 137/96 (110) 97 04/24/20 00:00 112 04/24/20 00:00 98.0 86 20 136/94 (108) 99 04/23/20 21:00 Room Air 04/23/20 20:54 110 132/90 04/23/20 20:00 119 04/23/20 20:00 98.2 110 20 132/90 (104) 99 04/23/20 16:43 109 04/23/20 16:00 97.5 60 21 109/67 (81) 97 Height (Feet): 6 Height (Inches): 2.00 Weight (Pounds): 243 General Appearance: WD/WN, no acute distress HEENT: normocephalic, atraumatic, anicteric Respiratory/Chest: chest wall non-tender, lungs clear, normal breath sounds Cardiovascular: normal peripheral pulses, normal rate, regular rhythm, no gallop/murmur, no JVD Abdomen: normal bowel sounds, soft, non tender, no organomegaly, non distended, no mass, no scars Genitourinary: normal external genitalia Extremities: no cyanosis, no clubbing Skin: no rash, no lesions, ulcers Neurologic/Psychiatric: 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 grossly normal, no motor/sensory deficits, abnormal gait Laboratory Tests Test 04/23/20 16:34 POC Whole Blood Glucose 421 MG/DL (74-106) H Current Medications Medications (Trade) Dose Ordered Sig/Mika Route PRN Reason Start Time Stop Time Status Last Admin Dose Admin Acetaminophen (Tylenol) 650 mg Q4H PRN ORAL Mild Pain (Pain Scale 1-3) 04/19/20 20:45 05/19/20 20:44 Carvedilol (Coreg) 6.25 mg EVERY 12 HOURS ORAL 04/23/20 21:00 05/21/20 20:59 Chlorhexidine Gluconate (Charity-Hex 2%) 1 applic BEFORE DINNER PRN TOPIC Diarrhea 04/19/20 20:45 07/18/20 20:44 Dextrose (Dextrose 50%) 25 ml Q30M PRN IV Hypoglycemia 04/20/20 11:30 07/19/20 11:29 Dextrose (Dextrose 50%) 50 ml Q30M PRN IV Hypoglycemia 04/20/20 11:30 07/19/20 11:29 Enoxaparin Sodium (Lovenox) 40 mg Q24H SUBQ 04/20/20 09:00 07/19/20 08:59 Folic Acid (Folate) 1 mg DAILY ORAL 04/22/20 09:00 05/22/20 08:59 Furosemide (Lasix) 40 mg DAILY ORAL 04/24/20 09:00 05/24/20 08:59 Insulin Aspart (NovoLOG) 6 units TIWM SUBQ 04/20/20 12:00 07/19/20 11:59 Insulin Detemir (Levemir) 18 units DAILY SUBQ 04/20/20 12:00 07/19/20 11:59 Levofloxacin (Levaquin) 750 mg DAILY ORAL 04/21/20 14:45 04/28/20 14:44 Lisinopril (ZestriL) 2.5 mg DAILY ORAL 04/24/20 09:00 05/24/20 08:59 Lorazepam (Ativan) 2 mg Q6H PRN ORAL For Anxiety 04/21/20 23:00 04/28/20 22:59 Pantoprazole (Protonix) 40 mg DAILY ORAL 04/23/20 09:00 05/23/20 08:59 Povidone Iodine (Betadine Trini) 1 applic DAILY TOPIC 04/22/20 15:00 07/21/20 14:59 04/22/20 15:01 Sodium Chloride 1,000 ml @ 50 mls/hr Q20H IV 04/19/20 21:45 05/19/20 21:44 04/19/20 23:55 Thiamine HCl (Vitamin B1) 100 mg DAILY ORAL 04/22/20 09:00 05/22/20 08:59 Zolpidem Tartrate (Ambien) 5 mg HSPRN PRN ORAL Insomnia 04/19/20 20:45 04/26/20 20:44 Marilou Stanton M.D. Apr 24, 2020 13:04
[2020-04-24 16:00] VITALS: BP 125/85
[2020-04-24 20:00] VITALS: BP 133/79
--- NOTE | 2020-04-24 21:22 | Cardiology Progress Note ---
Assessment/Plan Assessment/Plan 1. Non-healing leg ulcers b/l 2. CHF acute on chronic systolic on diastolic HF with reduced EF 25% Lasix for diuresis BNP elevated Repeat echo declined by pt 3. Cellulitis and leukocytosis 2/2 leg ulcers 4. DMII 5. Psychiatric disorder 6. BRIA on CKD 7. Fever Pt seen by Dr. Han today, continue medical tx. Bb for rate control and CHF, diuresis with Lasix. No plan for intervention, pt declines to be evaluated for AICD Subjective ROS Limited/Unobtainable: No Cardiovascular: Reports: edema Respiratory: Reports: shortness of breath Gastrointestinal/Abdominal: Reports: no symptoms Genitourinary: Reports: no symptoms Subjective Refused echo, no acute events Objective Last 24 Hour Vital Signs Date Time Temp Pulse Resp B/P (MAP) Pulse Ox O2 Delivery O2 Flow Rate FiO2 04/24/20 16:00 98.2 103 20 125/85 (98) 98 04/24/20 16:00 103 04/24/20 12:00 108 04/24/20 12:00 97.0 105 18 119/86 (97) 96 04/24/20 09:00 Room Air 04/24/20 08:00 102 04/24/20 08:00 97.5 107 20 136/87 (103) 96 04/24/20 04:00 98 04/24/20 04:00 97.9 102 20 137/96 (110) 97 04/24/20 00:00 112 04/24/20 00:00 98.0 86 20 136/94 (108) 99 General Appearance: no apparent distress EENT: PERRL/EOMI Neck: no JVD Rhythm: NSR Cardiovascular: regular rhythm Respiratory/Chest: no respiratory distress, no accessory muscle use Intake and Output 04/23/20 04/24/20 19:00 07:00 Intake Total 720 ml 300 ml Balance 720 ml 300 ml Intake Oral 720 ml 300 ml # Voids 3 3 Laboratory Tests Test 04/24/20 17:19 POC Whole Blood Glucose Pending Lauren Dong PA-C Apr 24, 2020 21:22
--- NOTE | 2020-04-24 23:38 | Psychiatric Progress Note ---
Psychiatry Progress Note Psychiatry Progress Note Medications Current Medications Medications (Trade) Dose Ordered Sig/Mika Route PRN Reason Start Time Stop Time Status Last Admin Dose Admin Acetaminophen (Tylenol) 650 mg Q4H PRN ORAL Mild Pain (Pain Scale 1-3) 04/19/20 20:45 05/19/20 20:44 Carvedilol (Coreg) 6.25 mg EVERY 12 HOURS ORAL 04/23/20 21:00 05/21/20 20:59 Chlorhexidine Gluconate (Charity-Hex 2%) 1 applic BEFORE DINNER PRN TOPIC Diarrhea 04/19/20 20:45 07/18/20 20:44 Dextrose (Dextrose 50%) 25 ml Q30M PRN IV Hypoglycemia 04/20/20 11:30 07/19/20 11:29 Dextrose (Dextrose 50%) 50 ml Q30M PRN IV Hypoglycemia 04/20/20 11:30 07/19/20 11:29 Enoxaparin Sodium (Lovenox) 40 mg Q24H SUBQ 04/20/20 09:00 07/19/20 08:59 Folic Acid (Folate) 1 mg DAILY ORAL 04/22/20 09:00 05/22/20 08:59 Furosemide (Lasix) 40 mg DAILY ORAL 04/24/20 09:00 05/24/20 08:59 Insulin Aspart (NovoLOG) 6 units TIWM SUBQ 04/20/20 12:00 07/19/20 11:59 Insulin Detemir (Levemir) 18 units DAILY SUBQ 04/20/20 12:00 07/19/20 11:59 Levofloxacin (Levaquin) 750 mg DAILY ORAL 04/21/20 14:45 04/28/20 14:44 Lisinopril (ZestriL) 2.5 mg DAILY ORAL 04/24/20 09:00 05/24/20 08:59 Lorazepam (Ativan) 2 mg Q6H PRN ORAL For Anxiety 04/21/20 23:00 04/28/20 22:59 Pantoprazole (Protonix) 40 mg DAILY ORAL 04/23/20 09:00 05/23/20 08:59 Povidone Iodine (Betadine Trini) 1 applic DAILY TOPIC 04/22/20 15:00 07/21/20 14:59 04/22/20 15:01 Sodium Chloride 1,000 ml @ 50 mls/hr Q20H IV 04/19/20 21:45 05/19/20 21:44 04/19/20 23:55 Thiamine HCl (Vitamin B1) 100 mg DAILY ORAL 04/22/20 09:00 05/22/20 08:59 Zolpidem Tartrate (Ambien) 5 mg HSPRN PRN ORAL Insomnia 04/19/20 20:45 04/26/20 20:44 Allergies: Coded Allergies: No Known Allergies (Unverified , 12/01/19) Objective Data Height (Feet): 6 Height (Inches): 2.00 Weight (Pounds): 243 General Appearance: no apparent distress Assessment/Plan Status: stable Kane Rose MD Apr 24, 2020 23:38
[2020-04-25] VITALS: BP 128/87
[2020-04-25 04:00] VITALS: BP 136/93
[2020-04-25] MEDS: NovoLOG Insulin Flexpen SUBQ SCH ×2 (06:09→12:00)
[2020-04-25 07:52] VITALS: BP 135/78
[2020-04-25] MEDS: Carvedilol 6.25mg Tab ORAL SCH (08:44)
[2020-04-25] MEDS: Furosemide 40mg tab ORAL SCH (08:45)
[2020-04-25] MEDS: Thiamine 100mg tab ORAL SCH (08:45)
[2020-04-25] MEDS: Levofloxacin 750mg tab ORAL SCH (08:45)
[2020-04-25] MEDS: Levemir Flexpen SUBQ SCH (08:46)
[2020-04-25] MEDS: Lisinopril 2.5mg tab ORAL SCH (08:46)
[2020-04-25] MEDS: Betadine 4oz Bottle TOPIC SCH (08:47)
[2020-04-25] MEDS: Enoxaparin 40mg Inj SUBQ SCH (08:47)
--- NOTE | 2020-04-25 10:39 | Pulmonology Progress Note ---
Subjective ROS Limited/Unobtainable: Yes Interval Events: pt still refusing care Constitutional: Reports: no symptoms Respiratory: Reports: dry cough Gastrointestinal/Abdominal: Reports: no symptoms Psychiatric: Reports: no symptoms Skin: Reports: no symptoms Musculoskeletal: Reports: no symptoms Allergies: Coded Allergies: No Known Allergies (Unverified , 12/01/19) Objective Last 24 Hour Vital Signs Date Time Temp Pulse Resp B/P (MAP) Pulse Ox O2 Delivery O2 Flow Rate FiO2 04/25/20 08:46 135/78 04/25/20 08:44 105 135/78 04/25/20 07:52 98.2 105 21 135/78 (97) 98 04/25/20 04:00 123 04/25/20 04:00 98.0 123 18 136/93 (107) 98 04/25/20 00:00 97.0 119 18 128/87 (101) 97 04/25/20 00:00 119 04/24/20 21:00 Room Air 04/24/20 20:00 115 04/24/20 20:00 98.6 103 20 133/79 (97) 99 115 04/24/20 16:00 98.2 103 20 125/85 (98) 98 04/24/20 16:00 103 04/24/20 12:00 108 04/24/20 12:00 97.0 105 18 119/86 (97) 96 Intake and Output 04/24/20 04/25/20 18:59 06:59 Intake Total 500 ml 1000 ml Balance 500 ml 1000 ml Intake Oral 500 ml 1000 ml # Voids 4 6 Objective 04/25 no change 04/24 pt refusing care/meds; NAD 04/23 pt still refusing care; NAD; arterial doppler scheduled today 04/22 pt refusing care; NAD 04/21 NAD; pt refusing IV abx, and insulin General Appearance: WD/WN, no acute distress HEENT: normocephalic, atraumatic Respiratory: lungs clear Cardiovascular: regular rhythm, tachycardia Abdomen: soft, non tender Skin: ulcers, other - b/l LE cellulitis Neurologic: alert Laboratory Tests 04/24/20 11:48: POC Whole Blood Glucose 459H 04/24/20 17:19: POC Whole Blood Glucose [Pending] 04/24/20 22:51: POC Whole Blood Glucose 495H 04/25/20 06:07: POC Whole Blood Glucose 445H Current Medications Medications (Trade) Dose Ordered Sig/Mika Route PRN Reason Start Time Stop Time Status Last Admin Dose Admin Acetaminophen (Tylenol) 650 mg Q4H PRN ORAL Mild Pain (Pain Scale 1-3) 04/19/20 20:45 05/19/20 20:44 Carvedilol (Coreg) 6.25 mg EVERY 12 HOURS ORAL 04/23/20 21:00 05/21/20 20:59 Chlorhexidine Gluconate (Charity-Hex 2%) 1 applic BEFORE DINNER PRN TOPIC Diarrhea 04/19/20 20:45 07/18/20 20:44 Dextrose (Dextrose 50%) 25 ml Q30M PRN IV Hypoglycemia 04/20/20 11:30 07/19/20 11:29 Dextrose (Dextrose 50%) 50 ml Q30M PRN IV Hypoglycemia 04/20/20 11:30 07/19/20 11:29 Enoxaparin Sodium (Lovenox) 40 mg Q24H SUBQ 04/20/20 09:00 07/19/20 08:59 Folic Acid (Folate) 1 mg DAILY ORAL 04/22/20 09:00 05/22/20 08:59 Furosemide (Lasix) 40 mg DAILY ORAL 04/24/20 09:00 05/24/20 08:59 Insulin Aspart (NovoLOG) 6 units TIWM SUBQ 04/20/20 12:00 07/19/20 11:59 Insulin Detemir (Levemir) 18 units DAILY SUBQ 04/20/20 12:00 07/19/20 11:59 Levofloxacin (Levaquin) 750 mg DAILY ORAL 04/21/20 14:45 04/28/20 14:44 Lisinopril (ZestriL) 2.5 mg DAILY ORAL 04/24/20 09:00 05/24/20 08:59 Lorazepam (Ativan) 2 mg Q6H PRN ORAL For Anxiety 04/21/20 23:00 04/28/20 22:59 Pantoprazole (Protonix) 40 mg DAILY ORAL 04/23/20 09:00 05/23/20 08:59 Povidone Iodine (Betadine Trini) 1 applic DAILY TOPIC 04/22/20 15:00 07/21/20 14:59 04/22/20 15:01 Sodium Chloride 1,000 ml @ 50 mls/hr Q20H IV 04/19/20 21:45 05/19/20 21:44 04/19/20 23:55 Thiamine HCl (Vitamin B1) 100 mg DAILY ORAL 04/22/20 09:00 05/22/20 08:59 Zolpidem Tartrate (Ambien) 5 mg HSPRN PRN ORAL Insomnia 04/19/20 20:45 04/26/20 20:44 Assessment/Plan Assessment/Plan 1. Diabetes mellitus, not well controlled - on insulin per Dr. Costello. - pt still refusing care 2. Pleural effusion. - has small left pleural effusion - Bilateral patchy densities, suspect pneumonia - status post IV Lasix once in the ER. - currently saturating well on RA - 2D echo shows LV EF 25-30% - provide supplemental oxygen as needed - cont monitor saO2 3. Patchy opacities in lungs, likely pneumonia. -Abx per ID 4. DVT prophylaxis. -on Lovenox. 5. Leg ulcer. - s/p cefazolin and doxycycline empirically - now oral levaquin per ID - pt refusing care 6. Refusal of care - pt starting antidepressant per psych The care for this patient was discussed with my supervising physician. Time spent for this case was approximately 31 minutes. Steve Jeffrey Apr 25, 2020 10:39 Mushtaq Morrison MD Apr 25, 2020 11:46
[2020-04-25 12:00] VITALS: BP 128/85
--- NOTE | 2020-04-28 08:46 | Discharge Summary ---
Discharge Summary Discharge Summary _ DATE OF ADMISSION: 04/19/2020 DATE OF DISCHARGE: 04/25/2020 DISCHARGED BY: Dr. Camp REASON FOR ADMISSION: 44 years old male with past medical history of congestive heart failure, diabetes mellitus, schizophrenia, presented for evaluation of cough. He denied chest pain or shortness of breath. He denied fever and chills. Upon evaluation in emergency room patient was tachycardic ; pulse oximetry was stable on room air. Rapid COVID-19 was negative. Laboratory work-up revealed elevated blood sugar above 300, minimal leukocytosis, stable hemoglobin and hematocrit. Lactic acid 3.5. Troponin negative, pro BNP 5542, EKG revealed sinus tachycardia no acute ischemic changes. Chest x-ray showed bilateral infiltrates. Urine toxicology screen was negative. Patient received fluid bolus , insulin, pancultured , empiric antibiotic and admitted with uncontrolled diabetes, pneumonia and CHF . CONSULTANTS: measurement specialist Dr. Han receiving specialist Dr. Costello reinforcing bar setter Dr. Castaneda ID specialist Dr. Stanton pulmonary psychiatrist Dr. Rose HOSPITAL COURSE: Patient admitted to telemetry floor. Echocardiogram demonstrated global left ventricular hypokinesis with left ventricular ejection fraction estimated to be 25 to 30%. Moderate to severe mitral regurgitation. Diuresis provided with close monitoring of volumes and cardiorenal parameters. Grain Blender followed. Guideline directed medical therapy with beta-christian, ANNA inhibitor and diu retic provided. Grain Blender recommended to repeat echocardiogram , but patient declined. Patient presented with bilateral nonhealing leg ulcers and evidence of cellulitis. Blood cultures were negative. Wound culture revealed Klebsiella. Antibiotic provided as per ID specialist recommendation fpr pneumonia and cellulitis. Aspiration precaution maintained. Blood sugar was managed as per receiving specialist recommendation with long-acting Levemir and sliding scale of NovoLog as needed. Diabetic diet and diabetic teaching provided. Renal parameters and electrolytes were closely monitored , electrolytes corrected as needed , nephrotoxins were avoided . DVT and GI prophylaxis provided. Supervisor [employer] seen and evaluated patient. X-ray of the left tibia-fibula and arterial duplex lower extremity ordered, but patient declined . Patient was very noncompliant. He also declined further labs. Wound care provided as per reinforcing bar setter recommendation. No acute surgical interventions were required at this time. Psychiatrist followed. Patient started on antidepressant. According to psychiatrist , patient had capacity to refuse medication. Reality orientation and supportive therapy provided. Patient clinically stabilized and was ready for discharge home. FINAL DIAGNOSES: Probably sepsis Community-acquired pneumonia CHF acute on chronic, systolic and diastolic with reduced ejection fraction 25% Cellulitis LE Nonhealing bilateral leg ulcers Diabetes mellitus [id number] Major depressive disorder Acute kidney injury probably on chronic kidney disease Refusal of care DISCHARGE MEDICATIONS: See Medication Reconciliation list. DISCHARGE INSTRUCTIONS: [] Patient was discharged home. I have been assigned to dictate discharge summary for this account. I was not involved in the patient's management. Dianna Guthrie NP Apr 28, 2020 08:46
== END 2020-04-25 14:18 | disposition home or self-care (01) | DRG 720 ==
LOC: EMR 10:31 → 2E 12:19 → EDBEDREQ 12:46 → 2E 04-22 07:42
DX: A41.9 Sepsis, unspecified organism (principal); J18.9 Pneumonia, unspecified organism; I50.43 Acute on chronic combined systolic (congestive) and diastolic (congestive) heart failure; N17.9 Acute kidney failure, unspecified; L03.116 Cellulitis of left lower limb; F20.89 Other schizophrenia; E11.65 Type 2 diabetes mellitus with hyperglycemia; E11.622 Type 2 diabetes mellitus with other skin ulcer; L03.119 Cellulitis of unspecified part of limb; N18.9 Chronic kidney disease, unspecified; L02.619 Cutaneous abscess of unspecified foot; I34.0 Nonrheumatic mitral (valve) insufficiency; E11.22 Type 2 diabetes mellitus with diabetic chronic kidney disease; F32.9 Major depressive disorder, single episode, unspecified; F20.9 Schizophrenia, unspecified; L98.499 Non-pressure chronic ulcer of skin of other sites with unspecified severity; Z79.01 Long term (current) use of anticoagulants; Z53.29 Procedure and treatment not carried out because of patient's decision for other reasons
CPT/HCPCS: 36415; 71045; 80053; 80307; 81003; 82009; 82248; 82962; 83605; 83735; 83880; 84484; 85025; 87040; 87070; 87181; 87205; 93005; 93306; 96361; 96365; 96367; 96375; 99285; A4246; J1815; J7030; S5561; U0002